=== PATIENT | female | born 1955 | race Caucasian/White ===

== ENCOUNTER 2019-11-28 19:00 | Observation (INO) | payer MEDICARE, OTHER, SELFPAY ==
[2019-11-28] VITALS (7 sets, daily range): BP systolic 96–149; BP diastolic 60–104; PULSE 90–103; RESP 16–18; TEMP 36.8; O2SAT 94–96; BMI 47.0
--- NOTE | 2019-11-28 19:10 | ED_ITS ---
Entered by Kaitlin Damon, acting as scribe for Arabella Lang HPI - Fall General: Chief Complaint: Fall Stated Complaint: Fall Time Seen by Provider: 11/28/19 19:03 Source: patient and family Mode of arrival: ambulatory History of Present Illness: HPI Narrative: 64 y/o female presents to the ED with complaint of pain, post fall. Pt states she has chronic weakness that has been going on for the past 2 years. She is used to the weakness and but she thinks she has had some increased shakiness today. She said she was walking when her legs gave out. She had a recent hip replacement and has some discomfort since the fall. Family states she does not eat very much and they think that contributed to her fall. Pt reports increased thirst, recently. Upon exam, she has some trembling in her hands that she says is a bit worse than usual. She is mostly concerned about her hip pain. MD complaint: fall Onset (ago): hour(s) Fall from: standing Fall witnessed: yes, by family Place fall occurred: home Loss of consciousness: None Location of injury: other (hip) Severity: mild Associated symptoms-after fall: Denies abdominal pain, chest pain or hematuria Review of Systems General: Reports: other (negative unless marked) Const: Denies: fever, chills, body aches, fatigue, malaise or diaphoresis Eyes: Denies: change in vision or blurry vision ENMT: Denies: throat pain, painful swallowing, hoarseness, ear pain, ear discharge, Change in hearing or nasal discharge Card: Denies: chest pain, palpitations, irregular heart rhythm, syncope, pre- syncope, shortness of breath on exertion or shortness of breath when lying down Resp: Denies: shortness of breath, productive cough, non-productive cough, wheezing, coughing up blood or chest congestion GI: Denies: abdominal pain, nausea, vomiting, vomiting blood, coffee grounds in vomit, diarrhea, constipation, cramping, blood in stool or black tarry stool : Denies: flank pain, painful urination, urinary frequency, urinary urgency, decreased urine ouput, urinary incontinence or blood in urine Skin/Breast: Denies: rash, skin tenderness or yellow skin Endo: Denies: excessive thirst, tired all the time, cold intolerance, excessive sweating, flushing or hot flashes Jesus Manuel/Lymph: Denies: easy bruising, easy bleeding, petechiae or enlarged lymph nodes All/Imm: Denies: hives, throat swelling, tongue swelling, facial swelling or acute wheezing PFSH ED PFSH: Medical History COPD (chronic obstructive pulmonary disease) Depression Fibromyalgia GERD (gastroesophageal reflux disease) History of renal dialysis Transient in 2017 after development of shock from post op infection right hip. Hypertension Hypothyroidism Osteoarthritis Overactive bladder Surgical History History of back surgery History of bilateral knee replacement History of History of hysterectomy History of right hip replacement History of tonsillectomy Hx of cervical spine surgery Family History Other Hypertension Social History Smoking and tobacco status: former smoker Alcohol intake: current Alcohol intake frequency: holidays/special occasions only Substance/Drug Use: never Household members: spouse Marital status: Physical Exam Const: COMMON NORMALS: no apparent distress, oriented x3, no limitations, healthy appearing and well nourished EXAM LIMITATIONS: no altered mental status GENERAL APPEARANCE: cooperative, well kempt and well developed ORIENTATION/CONSCIOUSNESS: Yes awake HENMT: COMMON NORMALS: normocephalic, head/scalp atraumatic, hearing grossly normal bilaterally, external ears normal, EAC's normal, external nose normal and moist oral mucous membranes HEAD & SCALP: normal to inspection, normocephalic and atraumatic FACE & SINUS: normal facial exam and face symmetric NOSE: external nose normal and nares normal EXTERNAL EAR: Yes external ears normal EXTERNAL AUDITORY CANAL: EAC's normal Eye: COMMON NORMALS: PERRL, EOMs intact bilaterally, conjunctivae normal and no scleral icterus GENERAL EYE: normal appearance of both eyes and normal light reflex CONJUNCTIVA: Yes conjunctivae normal SCLERA: sclerae normal CORNEA: Yes corneas normal PUPIL: Yes PERRL DIRECT OPHTHALMOSCOPY: Yes normal light reflex Neck/C-Spine: COMMON NORMALS: full ROM, no lymphadenopathy, supple, no meningeal signs and no JVD GENERAL: Yes normal visual inspection and Yes trachea midline CERVICAL SPINE: Yes cervical ROM normal Chest: COMMONS NORMALS: inspection of chest normal and palpation of chest normal Resp: COMMON NORMALS: normal respiratory effort, no retractions, no use of accessory muscles and clear to auscultation bilaterally EFFORT & INSPECTION: Yes able to speak in complete sentences AUSCULTATION: clear to auscultation bilaterally Cardio: COMMON NORMALS: no JVD, regular rate, regular rhythm, S1 normal heart sound, S2 normal heart sound, no gallops, no clicks, no murmurs and no rub JUGULAR VENOUS DISTENTION: no JVD RATE: regular rate RHYTHM: regular rhythm HEART SOUNDS: S1 normal and S2 normal GI: COMMON NORMALS: soft to palpation, non-tender, no hepatosplenomegaly and no masses INSPECTION: Yes normal to inspection PALPATION: Yes soft and Yes no hepatosplenomegaly : COMMON NORMALS: Yes no CVA tenderness BLADDER/KIDNEY EXAM: Yes no CVA tenderness Back/Pelvis: COMMON NORMALS: no CVA tenderness, thoracic and lumbar spine normal to inspection, no thoracic nor lumbar tenderness and thoraco-lumbar ROM normal Neuro: COMMON NORMALS: oriented x3, CN's II-XII intact bilaterally, moves all extremities, no focal motor deficits and no sensory deficits noted MENINGEAL SIGNS: Yes no meningeal signs Psych: COMMON NORMALS: mental status grossly normal, thought process normal, cooperative, affect normal, speech normal and activity/motor behavior normal APPEARANCE: Yes well kempt SPEECH: Yes normal speech THOUGHT PROCESS: normal thought process Skin: COMMON NORMALS: no rashes or lesions noted, skin turgor normal, no jaundice, no petechiae and no mottling GENERAL SKIN EXAM: no rashes or lesions noted and turgor normal Course Vital Signs: Vital signs: Vital Signs Temperature 98.1 F 11/29/19 00:47 Pulse Rate 97 11/29/19 00:47 Respiratory Rate 19 H 11/29/19 00:47 Blood Pressure 169/81 11/29/19 00:47 Pulse Oximetry 94 11/29/19 00:47 MDM - Fall MDM Narrative: Medical decision making narrative: Elysia is a nice 64-year-old female who comes in with increased tremulousness and shakiness causing her to fall. I see no evidence of fractures on her x-ray. She does have an elevated right diaphragm on her chest x-ray. She also has hyponatremia which could be contributing to her tremulousness and generalized weakness and malaise. Hydrochlorothiazide as a cause but she has other medicines as well. Secondary to the patient's overall generally poor health status and weakness I believe she is at risk to fall again of going home. Consulted Dr. Cramer for admission to determine if she thinks she would benefit from an overnight stay with normal saline infusion and review of her medications and further work-up of her hyponatremia. Lab Data: Attestation: I reviewed the patient's lab results. Labs: Lab Results 11/28/19 11/28/19 11/28/19 Range/Units 19:30 19:30 19:30 WBC 7.6 (4.0-10.0) 10^3/ uL RBC 4.19 (4.1-5.3) 10^6/u L Hgb 10.7 L (11.5-15.3) g/dL Hct 34.7 L (37.0-47.0) % MCV 82.8 (81-99) fL MCH 25.5 L (28.0-34.0) pg MCHC 30.8 (30.0-36.0) g/dL RDW 14.7 (12.1-15.1) % Plt Count 324 (130-400) 10^3/c mm MPV 9.1 (7.4-10.4) fL Neut % (Auto) 81.0 % Lymph % (Auto) 11.2 % Bradley % (Auto) 6.6 % Eos % (Auto) 0.4 % Baso % (Auto) 0.5 % Neut # (Auto) 6.1 (1.8-7.7) 10^3/u L Lymph # (Auto) 0.9 (0.8-4.8) 10^3/u L Bradley # (Auto) 0.5 (0.2-0.9) 10^3/u L Eos # (Auto) 0.0 (0.0-0.8) 10^3/u L Baso # (Auto) 0.0 (0.0-0.1) 10^3/u L Nucleated RBC % (a uto) 0 % Nucleated RBCs # 0.0 /100WBC Sodium 125 L (136-145) mmol/L Potassium 3.8 (3.5-5.1) mmol/L Chloride 86 L (98-107) mmol/L Carbon Dioxide 28 (22-29) mmol/L Anion Gap 14.8 (5-19) BUN 11 (8-23) mg/dL Creatinine 1.0 H (0.5-0.9) mg/dL GFR Calculation 55.5 L (90-130) mL/min Glucose 146 H (65-115) mg/dL Calcium 9.4 (8.5-10.5) mg/dL Total Bilirubin 0.3 (0.15-1.2) mg/dL AST 11 (0-32) U/L ALT 10 (0-33) U/L Alkaline Phosphata se 83 (35-105) IU/L Troponin T Baselin e 44 H (0-10) ng/mL Troponin T 120 Min didier (0-10) ng/mL Delta Troponin T (0-10) ABS# Total Protein 7.5 (6.6-8.7) g/dL Albumin 3.9 (3.5-5.2) g/dL Globulin 3.6 (1.3-4.6) g/dL Urine Color (Yellow) Urine Appearance (CLEAR) Urine pH (5-7) Ur Specific Gravit y (1.005-1.030) Urine Protein (Negative) Urine Glucose (UA) (Normal) Urine Ketones (Negative) Urine Blood (Negative) Urine Nitrate (Negative) Urine Bilirubin (NEGATIVE) Urine Urobilinogen (Negative) mg/dL Ur Leukocyte Aurelia ase (Negative) Urine RBC (0-2) /hpf Urine WBC (0-5) /hpf Ur Squamous Epith Cells (0-5) Urine Bacteria (NONE) Influenza Type A A g (Negative) POC Influenza B Ag (Negative) 11/28/19 11/28/19 11/28/19 Range/Units 20:22 20:34 21:00 WBC (4.0-10.0) 10^3/ uL RBC (4.1-5.3) 10^6/u L Hgb (11.5-15.3) g/dL Hct (37.0-47.0) % MCV (81-99) fL MCH (28.0-34.0) pg MCHC (30.0-36.0) g/dL RDW (12.1-15.1) % Plt Count (130-400) 10^3/c mm MPV (7.4-10.4) fL Neut % (Auto) % Lymph % (Auto) % Bradley % (Auto) % Eos % (Auto) % Baso % (Auto) % Neut # (Auto) (1.8-7.7) 10^3/u L Lymph # (Auto) (0.8-4.8) 10^3/u L Bradley # (Auto) (0.2-0.9) 10^3/u L Eos # (Auto) (0.0-0.8) 10^3/u L Baso # (Auto) (0.0-0.1) 10^3/u L Nucleated RBC % (a uto) % Nucleated RBCs # /100WBC Sodium (136-145) mmol/L Potassium (3.5-5.1) mmol/L Chloride (98-107) mmol/L Carbon Dioxide (22-29) mmol/L Anion Gap (5-19) BUN (8-23) mg/dL Creatinine (0.5-0.9) mg/dL GFR Calculation (90-130) mL/min Glucose (65-115) mg/dL Calcium (8.5-10.5) mg/dL Total Bilirubin (0.15-1.2) mg/dL AST (0-32) U/L ALT (0-33) U/L Alkaline Phosphata se (35-105) IU/L Troponin T Baselin e (0-10) ng/mL Troponin T 120 Min didier 40.90 H (0-10) ng/mL Delta Troponin T -3.10 L (0-10) ABS# Total Protein (6.6-8.7) g/dL Albumin (3.5-5.2) g/dL Globulin (1.3-4.6) g/dL Urine Color Yellow (Yellow) Urine Appearance Sl hazy (CLEAR) Urine pH 7 (5-7) Ur Specific Gravit y 1.005 (1.005-1.030) Urine Protein Neg (Negative) Urine Glucose (UA) Norm (Normal) Urine Ketones Negative (Negative) Urine Blood Neg (Negative) Urine Nitrate Negative (Negative) Urine Bilirubin Neg (NEGATIVE) Urine Urobilinogen Norm (Negative) mg/dL Ur Leukocyte Aurelia ase Negative (Negative) Urine RBC None (0-2) /hpf Urine WBC 0-4 H (0-5) /hpf Ur Squamous Epith Cells 0-4 H (0-5) Urine Bacteria Trace (NONE) Influenza Type A A g Negative (Negative) POC Influenza B Ag Negative (Negative) Imaging Data^: CXR: My impression: Elevated right hemidiaphragm, nonspecific findings otherwise. EKG Data^: EKG 1: EKG interpretation date: 11/28/19 EKG interpretation time: 19:35 Interpretation: Normal sinus rhythm at 92 beats a minute, possible lateral Q waves in 1 and aVL, normal intervals, no blocks. No acute ST or T wave changes. Discharge Plan Discharge Patient Disposition: Placed in Observation Admit Provider: Cristy Perez Clinical Impression: Acute hyponatremia Condition: Stable Referrals: Yimi Wagner [Family Provider] - Discharge Date/Time: 11/29/19 00:38 Coding Level of Care Code ED Operation Manager for Chg Fwd Exam Comprehensive The documentation recorded by the Nelson braun Ashley, accurately reflects the service I personally performed and the decisions made by Precious busby Eli N Nov 28, 2019 19:00
--- NOTE | 2019-11-28 19:14 | XRR_ITS ---
PROCEDURE INFORMATION: Exam: XR Right Hip with Pelvis when Performed Exam date and time: 11/28/2019 7:53 PM Age: 64 years old Clinical indication: Injury or trauma; Fall; Initial encounter; Blunt trauma (contusions or hematomas); Right; Injury date: Today; Prior surgery; Surgery type: Total hip; Additional info: Fall/injury TECHNIQUE: Imaging protocol: XR Right hip with pelvis when performed. Views: 1 view. COMPARISON: No relevant prior studies available. FINDINGS: Bones/joints: Prior right hip arthroplasty. No acute fracture or dislocation. No evidence of loosening. Degenerative changes are present within the visualized portions of the caudal aspect of the lumbar spine. Degenerative changes left hip Soft tissues: Unremarkable. XR/XR hip RT 2-3V wo/w pel* [id number] IMPRESSION: Prior right hip arthroplasty. No acute fracture or dislocation. No evidence of loosening.
--- NOTE | 2019-11-28 19:14 | XRR_ITS ---
PROCEDURE INFORMATION: Exam: XR Chest, 1 View Exam date and time: 11/28/2019 7:53 PM Age: 64 years old Clinical indication: Cough; Prior surgery; Surgery type: T spine TECHNIQUE: Imaging protocol: XR of the chest Views: 1 view. COMPARISON: CR Chest 2 views* [id number] 09/01/2017 9:13 AM FINDINGS: Lungs: Lungs are well aerated without a focal area of consolidation. Pleural space: Unremarkable. No pleural effusion. No pneumothorax. Heart/Mediastinum: Unremarkable. No cardiomegaly. Bones/joints: Prior surgical fixation of the caudal aspect of the cervical spine. Haney rods and pedicle plates stabilizing the thoracic spine. XR/XR chest 1V portable [id number] IMPRESSION: Lungs are well aerated without a focal area of consolidation. No focal infiltrate.Poor degree of inspiration accentuates the basilar markings.
--- NOTE | 2019-11-28 19:16 | ECG_ITS ---
Measurements Intervals [place] Rate: 92 P: 56 IL: 170 QRS: 9 QRSD: 109 T: 85 QT: 343 QTc: 424 SINUS RHYTHM WITH SINUS ARRHYTHMIA PROBABLE LATERAL MYOCARDIAL INFARCTION , OF INDETERMINATE AGE [35 ms Q WAVE IN I/ I/aVL/V5/V6] No previous ECG available for comparison Electronically Signed On 11-28-2019 21:19:19 NET APPLICATIONS DEVELOPER by Gay Manley M.D. [id number]
--- NOTE | 2019-11-28 19:16 | PC.NURSE ---
Patient states she started to walk to the bathroom with her walker and she fell. Patient states that she has shakiness that makes her fall. Patient states that she had a replacement on her right hip summer 2016 and that she landed on it tonight but she does not feel any pain in it right now.
[2019-11-28 19:38] LABS: Basophils % 0.5 %; Eosinophils % 0.4 %; Hematocrit 34.7 % (37.0-47.0); Hemoglobin 10.7 g/dL (11.5-15.3); Lymphocytes # 0.9 10^3/uL (0.8-4.8); Lymphocytes % 11.2 %; Mean Corpuscular HGB Conc 30.8 g/dL (30.0-36.0); Mean Corpuscular Hemoglobin 25.5 pg (28.0-34.0); Mean Corpuscular Volume 82.8 fL (81-99); Mean Platelet Volume 9.1 fL (7.4-10.4); Monocytes # 0.5 10^3/uL (0.2-0.9); Monocytes % 6.6 %; Neutrophils # 6.1 10^3/uL (1.8-7.7); Nucleated Red Blood Cells % 0 %; Platelet Count 324 10^3/cmm (130-400); Red Blood Count 4.19 10^6/uL (4.1-5.3); Red Cell Distribution Width 14.7 % (12.1-15.1); White Blood Count 7.6 10^3/uL (4.0-10.0)
[2019-11-28 19:53] LABS: Alanine Aminotransferase 10 U/L (0-33); Albumin Level 3.9 g/dL (3.5-5.2); Alkaline Phosphatase 83 IU/L (35-105); Anion Gap 14.8 (5-19); Aspartate Amino Transferase 11 U/L (0-32); Blood Urea Nitrogen 11 mg/dL (8-23); Calcium 9.4 mg/dL (8.5-10.5); Carbon Dioxide 28 mmol/L (22-29); Chloride 86 mmol/L (98-107); Creatinine Clr Calc Pharmacy 79.8404; Globulin 3.6 g/dL (1.3-4.6); Glomerular Filtration Rate 55.5 mL/min (90-130); Glucose 146 mg/dL (65-115); Potassium 3.8 mmol/L (3.5-5.1); Sodium 125 mmol/L (136-145); Total Bilirubin 0.3 mg/dL (0.15-1.2); Total Protein 7.5 g/dL (6.6-8.7)
[2019-11-28 19:56] LABS: Troponin(5th) Baseline 44 ng/mL (0-10)
[2019-11-28] MEDS: sodium chloride 0.9% 1,000 ML 100 ML IV (20:39)
--- NOTE | 2019-11-28 20:44 | PC.PHAR ---
I SPOKE WITH THE PATIENT THIS EVENING. SHE NAMED A FEW OF THE MEDICATIONS THAT SHE COULD REMEMBER TAKING, HOWEVER, SHE DIDN'T KNOW THE MGS OF ANY OF THE MEDICATIONS. I GAVE A LIST THAT SHE GAVE ME TO DR. GRIJALVA PER HIS INSTRUCTIONS.
[2019-11-28 21:01] LABS: Influenza A by IFA Negative (Negative)
[2019-11-28 21:02] LABS: Influenza B by IFA Negative (Negative)
[2019-11-28 21:04] LABS: Add Urine Culture? No; Bacteria Urine TRACE; Bilirubin Urine Neg (NEGATIVE); Blood Urine Neg (Negative); Glucose Urine UA Norm (Normal); Ketones Urine Negative (Negative); Leukocyte Esterase Urine Negative (Negative); Nitrate Urine Negative (Negative); Protein Urine Neg (Negative); Specific Gravity, Urine 1.005 (1.005-1.030); Squamous Epithelial Cell Urine 0-4 (0-5); Urine Appearance SL Hazy (CLEAR); Urine Color Yellow (Yellow); Urobilinogen Urine Norm (Negative); WBC Urine 0-4 /hpf (0-5); pH Urine 7 (5-7)
--- NOTE | 2019-11-28 21:16 | ECG_ITS ---
Measurements Intervals [place] Rate: 92 P: 56 HI: 165 QRS: 2 QRSD: 112 T: 82 QT: 344 QTc: 427 SINUS RHYTHM WITH SINUS ARRHYTHMIA MODERATE INTRAVENTRICULAR CONDUCTION DELAY [110+ ms QRS DURATION] NONSPECIFIC T-WAVE ABNORMALITY Compared to ECG 11/28/2019 19:35:43 Intraventricular conduction delay now present T-wave abnormality now present Myocardial infarct finding no longer present Electronically Signed On 11-28-2019 21:22:55 SAP TECHNICAL DEVELOPER by Gay Manley M.D. [id number]
--- NOTE | 2019-11-28 21:35 | PC.NURSE ---
EKG done at 2124 and shown to ER doctor
--- NOTE | 2019-11-28 22:21 | PC.NURSE ---
patient readjusted in bed with help of tech. patient IV checked for patency.
--- NOTE | 2019-11-28 22:46 | P.HP_ITS ---
Providers/Chief Complaint Admitting Physician: Cristy Perez MD Primary Care Provider: Yimi Wagner Chief Complaint: Fall History of Present Illness Scarlet Tong is a 64 year old female who presented to the emergency room with a chief complaint of a fall. She says she got up to go to the bathroom and her legs just gave out. She was having increasing tremors of her arms and legs making it difficult to move around. She is felt more tired and just generally weak. She has had issues ever since she had hip replacement and subsequent significant infection stemming after that that led to prolonged hospitalization and even temporary dialysis. Because of those experiences it more, patient does not like to go to the doctor. She does not really want to be here now but her family insisted because today was much worse than usual. In the emergency room she was found to have low sodium at 125. She reports drinking water all the time and being thirsty. She had some pain in her hip on the right side where she fell but x-ray in the emergency room did not show any fracture. No preceding symptoms such as chest pain or dizziness or difficulty breathing. No focal weakness. Patient continued to have increased tremors and general weakness and is being admitted overnight for some fluids and further evaluation as indicated. Review of Systems Const: Denies: fever or chills Eyes: Denies: change in vision ENMT: Denies: throat pain or nasal congestion Card: Denies: chest pain, palpitations or edema Resp: Reports: shortness of breath; Denies: productive cough GI: Denies: abdominal pain, nausea, vomiting, difficulty swallowing, diarrhea, constipation or blood in stool : Denies: difficulty urinating or urinary frequency Musc: Reports: back pain, extremity pain and muscle weakness; Denies: joint swelling, redness, joint warmth or muscle cramps Skin/Breast: Reports: dry skin; Denies: rash or sores Neuro: Reports: weakness in extremities; Denies: headache or numbness in extremities Psych: Reports: depression; Denies: anxiety Jesus Manuel/Lymph: Denies: easy bruising or easy bleeding Medications/Allergies Home Medications Medication Instructions Recorded Confirmed Last Taken Type Lyrica 11/28/19 11/28/19 History Miralax 11/28/19 Unknown History Trelegy Ellipta 11/28/19 Unknown History Tylenol PM Extra Strength 1 tab PO BEDTIME 11/28/19 11/28/19 11/27/19 History Wellbutrin SR 11/28/19 11/28/19 History amitriptyline 11/28/19 Unknown History hydrochlorothiazide 11/28/19 11/28/19 History levothyroxine 11/28/19 11/28/19 History omeprazole 11/28/19 11/28/19 History solifenacin 10 mg PO DAILY 11/28/19 11/28/19 11/28/19 History Allergies Allergy/AdvReac Type Severity Reaction Status Date / Time Unable to Assess Allergy Unverified 11/28/19 19:06 PFSH Acute PFSH: Medical History COPD (chronic obstructive pulmonary disease) Depression Fibromyalgia GERD (gastroesophageal reflux disease) History of renal dialysis Transient in 2017 after development of shock from post op infection right hip. Hypertension Hypothyroidism Osteoarthritis Overactive bladder Surgical History History of back surgery History of bilateral knee replacement History of History of hysterectomy History of right hip replacement History of tonsillectomy Hx of cervical spine surgery Family History Other Hypertension Social History Smoking and tobacco status: former smoker Alcohol intake: current Alcohol intake frequency: holidays/special occasions only Substance/Drug Use: never Household members: spouse Marital status: Female Reproductive History: : 2 Para: 2 Vitals/I&O/Wt Last Vital Signs Temp 98.2 F 11/28/19 19:02 Pulse 97 11/28/19 22:07 Resp 16 11/28/19 22:07 BP 144/76 11/28/19 22:07 Pulse Ox 95 11/28/19 22:07 Weight last 48 hrs Weight 136.078 kg Physical Exam Const: COMMON NORMALS: oriented x3 and alert HENMT: COMMON NORMALS: normocephalic and head/scalp atraumatic Eye: COMMON NORMALS: PERRL and EOMs intact bilaterally Neck/C-Spine: COMMON NORMALS: supple Resp: COMMON NORMALS: normal respiratory effort, no use of accessory muscles and clear to auscultation bilaterally Cardio: COMMON NORMALS: regular rate, regular rhythm, no gallops, no murmurs and no rub JUGULAR VENOUS DISTENTION: no JVD GI: COMMON NORMALS: soft to palpation and non-tender AUSCULTATION: Yes normoactive bowel sounds Extremity: COMMON NORMALS: normal capillary refill, no clubbing, cyanosis or edema and no calf tenderness Neuro: COMMON NORMALS: moves all extremities and no sensory deficits noted Psych: COMMON NORMALS: cooperative Skin: NARRATIVE SKIN EXAM: very dry, even flaky skin both legs in particular, decreased turgor no visible bruise presently to hip Data : 11/28/19 19:30 11/29/19 05:16 A&P Assessment and plan (1) Fall at home: Due to generalized weakness leading to her legs giving out as well as increased tremors Status: Acute Qualifiers: Encounter type: initial encounter Qualified Code(s): W19.XXXA - Unspecified fall, initial encounter; Y92.009 - Unspecified place in unspecified non-institutional (private) residence as the place of occurrence of the external cause Code(s): W19.XXXA - Unspecified fall, initial encounter; Y92.009 - Unspecified place in unspecified non-institutional (private) residence as the place of occurrence of the external cause (2) General weakness: Chronic but acutely worse Status: Acute Code(s): R53.1 - Weakness (3) Occasional tremors: More significant today Status: Acute Code(s): R25.1 - Tremor, unspecified (4) Acute hyponatremia: Suspect related to hydrochlorothiazide Status: Acute Code(s): E87.1 - Hypo-osmolality and hyponatremia (5) Hyperglycemia: Without a known history of diabetes Status: Acute Code(s): R73.9 - Hyperglycemia, unspecified (6) Hypertension: Status: Acute Qualifiers: Hypertension type: essential hypertension Qualified Code(s): I10 - Essential (primary) hypertension Code(s): I10 - Essential (primary) hypertension (7) Hypothyroidism: Status: Acute Qualifiers: Hypothyroidism type: acquired Qualified Code(s): E03.9 - Hypothyroidism, unspecified Code(s): E03.9 - Hypothyroidism, unspecified (8) COPD (chronic obstructive pulmonary disease): Status: Acute Qualifiers: COPD type: chronic bronchitis Chronic bronchitis type: simple Qualified Code(s): J41.0 - Simple chronic bronchitis Code(s): J44.9 - Chronic obstructive pulmonary disease, unspecified (9) Depression: Status: Acute Qualifiers: Depression Type: unspecified Qualified Code(s): F32.9 - Major depressive disorder, single episode, unspecified Code(s): F32.9 - Major depressive disorder, single episode, unspecified (10) Overactive bladder: Status: Acute Code(s): N32.81 - Overactive bladder (11) GERD (gastroesophageal reflux disease): Status: Acute Qualifiers: Esophagitis presence: without esophagitis Qualified Code(s): K21.9 - Gastro-esophageal reflux disease without esophagitis Code(s): K21.9 - Gastro-esophageal reflux disease without esophagitis (12) Fibromyalgia: Status: Acute Code(s): M79.7 - Fibromyalgia (13) Osteoarthritis: Status: Acute Qualifiers: Osteoarthritis location: multiple joints Osteoarthritis type: primary Qualified Code(s): M15.0 - Primary generalized (osteo)arthritis Code(s): M19.90 - Unspecified osteoarthritis, unspecified site Additional A&P Information Observation admission Hold HCTZ Monitor blood pressures and determine need for alternative agent Some IV fluids tonight Recheck sodium in the morning Check TSH Check hemoglobin A1c Continue serial cardiac enzymes Physical therapy evaluation Lovenox for DVT prophylaxis Patient was not able to provide any specifics in terms of home medications. Will need to clarify these as able. We did get the majority of the names though a couple are unclear at this point. Anticipate discharge home tomorrow with follow-up to primary care provider. May benefit from neurology evaluation for the tremors if they persist after c orrection of electrolytes Supportive care otherwise Plans were discussed with patient and questions were answered Full code Attestations Medical Necessity Statement*: Scarlet Tong's hospital stay will be less than 2 midnights for general weakness and tremors leading to a fall today. Found to have hyponatremia and hyperglycemia. Plans as noted. Coding Level of Care Code Acute Metal Furniture Assembler for Chg Fwd Diagnoses Fall at home W19.XXXA; Y92.009 Encounter type: initial encounter General weakness R53.1 Occasional tremors R25.1 Acute hyponatremia E87.1 Hyperglycemia R73.9 Hypertension I10 Hypertension type: essential hypertension Hypothyroidism E03.9 Hypothyroidism type: acquired COPD (chronic obstructive pulmonary disease) J41.0 COPD type: chronic bronchitis Chronic bronchitis type: simple Depression F32.9 Depression Type: unspecified Overactive bladder N32.81 GERD (gastroesophageal reflux disease) K21.9 Esophagitis presence: without esophagitis Fibromyalgia M79.7 Osteoarthritis M15.0 Osteoarthritis location: multiple joints Osteoarthritis type: primary
[2019-11-29] VITALS (7 sets, daily range): BP systolic 130–169; BP diastolic 62–86; PULSE 83–102; RESP 16–22; TEMP 36.6–36.8; O2SAT 91–96
[2019-11-29] MEDS: enoxaparin 40 mg/0.4 mL Syringe SUBCUT ×2 (01:12→23:48)
--- NOTE | 2019-11-29 01:16 | ECG_ITS ---
Measurements Intervals [place] Rate: 89 P: 46 SC: 184 QRS: 24 QRSD: 109 T: 76 QT: 358 QTc: 436 SINUS RHYTHM NONSPECIFIC T-WAVE ABNORMALITY Compared to ECG 11/28/2019 21:26:00 Sinus arrhythmia no longer present Intraventricular conduction delay no longer present T-wave abnormality still present Electronically Signed On 11-29-2019 11:15:18 PUNCHBOARD FILLING MACHINE OPERATOR by Gay Manley M.D. [email or web address]
[2019-11-29 01:37] LABS: Troponin 5 6HR 40.75 ng/mL (0-10)
[2019-11-29 01:44] LABS: Troponin 5 6HR Delta -3.25 ng/L (0-12)
[2019-11-29 05:54] LABS: INR 1.12 (0.8-1.2)
[2019-11-29 05:59] LABS: Anion Gap 13.1 (5-19); Blood Urea Nitrogen 9 mg/dL (8-23); Calcium 9.3 mg/dL (8.5-10.5); Carbon Dioxide 29 mmol/L (22-29); Chloride 89 mmol/L (98-107); Creatinine Clr Calc Pharmacy 99.8005; Glomerular Filtration Rate 71.8 mL/min (90-130); Glucose 115 mg/dL (65-115); Osmolality Calculated 261 mOsm/kg (285-295); Phosphorus 3.5 mg/dL (2.5-4.5); Potassium 4.1 mmol/L (3.5-5.1); Sodium 127 mmol/L (136-145)
[2019-11-29 06:08] LABS: Estmated Average Glucose 100; Hemoglobin A1C 5.1 % (4.0-6.0)
[2019-11-29 06:10] LABS: Thyroid Stimulating Hormone 0.37 uIU/mL (0.27-4.20)
[2019-11-29] MEDS: sodium chloride 0.9% 1,000 ML 100 ML IV ×3 (06:37→23:49)
[2019-11-29] MEDS: pantoprazole DR 40 mg Tablet PO (12:09)
[2019-11-29] MEDS: levothyroxine 100 mcg Tablet PO (12:10)
[2019-11-29] MEDS: pregabalin 50 mg Capsule PO ×2 (12:16→18:29)
--- NOTE | 2019-11-29 12:16 | PC.CHAP ---
Pastoral Care Encounter/Spiritual Assessment Type of Contact [] Declined personnel security assistant visit [] Patient/Family/Request visit [] Outpatient visit [] Follow-up visit [] Physician referral [] Code/Alert [x] Routine visit [] Staff referral [] Actively dying [] Patient sleeping [] Family support [] [] Out of room [] Palliative care [] [] Receiving care in room [] Pre-surgical visit [] Trauma [] Long length of stay [] ICU visit [] Other: Relational/Emotional Strength [x] Patient feels connected with others/family/visitors/staff [] Distress [] Loneliness/isolation [] Abandonment Spirituality of Patient [x] Person of Cony [x] Attends Congregational of their [place] [] Believes in Prayer [] Reads Bible or Buddhist materials [] There are Spiritual issues to be addressed Computer Operations Specialist Interventions [x] Prayer [x] Active listening [x] Non-anxious presence [x] Spiritual/emotional support [] Crisis/trauma care [] Spiritual counseling [] Bereavement support [] Provided bereavement packet [] Provided Bible/devotional materials [] Provided toy/stuffed animal, coloring book to patient or family member [] Provided Communion [] Anointing/Hume [] Salvation [x] Completed spiritual assessment [] Other: Impact on Illness or Injury [] Angry [] Fearful [] Anxious [] Often cries [] Exhaustion [] Unable to work [] Unable to attend yazdanism [] Unable to walk/stand [] Unable to read [] Unable to drive [] Unable to eat/drink [] Unable to sleep [] Unable to be with family [] Patient intubated [] Other: Summary patient ready to go home Time spent with patient 10 min
--- NOTE | 2019-11-29 12:53 | P.PN_ITS ---
Subjective Subjective: Interval history: Chart reviewed, imaging unremarkable, had 1200 mL urine output overnight, Na up to 127. Patient seen and examined, in good spirits, having cookies that family brought in. Worked well with PT, has been able to ambulate to the bathroom with minimal assistance and get back in bed on her own. No complaints currently, weakness has almost completely resolved, minimal tremors. Medications: Reviewed: Yes Medication Review Details: Active Medications Generic Name Dose Route Start Last Admin Trade Name Freq PRN Reason Stop Dose Admin Acetaminophen 650 mg 11/29/19 00:47 Tylenol PO Q6H PRN Mild/Mod Pain Or Temp >/= 101 Bisacodyl 10 mg 11/29/19 00:47 Dulcolax PO DAILY PRN CONSTIPATION Enoxaparin Sodium 40 mg 11/29/19 00:47 11/29/19 01:12 Lovenox SUBCUT 40 mg Q24H GRACIELA Administration Sodium Chloride 1,000 mls @ 100 m ls/hr 11/28/19 19:15 11/29/19 06:37 Sodium Chloride 0.9% IV 100 mls/hr .Q10H GRACIELA Administration Levothyroxine Sodi um 100 mcg 11/29/19 09:00 11/29/19 12:10 Synthroid PO 100 mcg DAILY GRACIELA Administration Ondansetron HCl 4 mg 11/29/19 00:47 Zofran PO Q8H PRN NAUSEA Pantoprazole Sodiu m 40 mg 11/29/19 09:00 11/29/19 12:09 Protonix PO 40 mg DAILY GRACIELA Administration Polyethylene Glyco l 17 gm 11/29/19 09:00 11/29/19 12:09 Miralax PO Not Given DAILY GRACIELA Unable to Assess Allergy (Unverified 11/28/19 19:06) Vitals/I&O/Wt Last Vital Signs Temp 98.2 F 11/29/19 11:00 Pulse 84 11/29/19 11:00 Resp 18 11/29/19 11:00 BP 130/62 11/29/19 11:00 Pulse Ox 95 11/29/19 11:00 11/28/19 11/29/19 11/29/19 22:59 06:59 14:59 Intake Total 1056.667 / 1056.667 720 / 720 Output Total 1200 / 1200 650 / 650 Balance -143.333 / -143.333 70 / 70 Weight last 48 hrs Weight 136.078 kg Physical Exam Const: COMMON NORMALS: no apparent distress and oriented x3 GENERAL APPEARANCE: cooperative and comfortable NUTRITIONAL APPEARANCE: obese morbidly obese ORIENTATION/CONSCIOUSNESS: Yes awake HENMT: COMMON NORMALS: normocephalic, head/scalp atraumatic, hearing grossly normal bilaterally and moist oral mucous membranes HEAD & SCALP: normocephalic and atraumatic Eye: COMMON NORMALS: PERRL, EOMs intact bilaterally and conjunctivae normal CONJUNCTIVA: Yes conjunctivae normal PUPIL: Yes PERRL Neck/C-Spine: COMMON NORMALS: full ROM GENERAL: Yes normal visual inspection and Yes trachea midline Resp: COMMON NORMALS: normal respiratory effort, no retractions, no use of accessory muscles and clear to auscultation bilaterally EFFORT & INSPECTION: Yes able to speak in complete sentences, Yes symmetric chest movement and No tachypneic AUSCULTATION: clear to auscultation bilaterally Cardio: COMMON NORMALS: regular rate, regular rhythm, S1 normal heart sound, S2 normal heart sound and no murmurs RATE: regular rate RHYTHM: regular rhythm HEART SOUNDS: S1 normal and S2 normal GI: COMMON NORMALS: normal to inspection, nondistended, normoactive bowel sounds, soft to palpation and non-tender INSPECTION: Yes central obesity PALPATION: Yes soft Extremity: COMMON NORMALS: normal to inspection, full ROM and no clubbing, cyanosis or edema; negative for no pedal edema Neuro: COMMON NORMALS: oriented x3, moves all extremities, no focal motor deficits and no sensory deficits noted Psych: COMMON NORMALS: mental status grossly normal, thought process normal, cooperative, affect normal and speech normal SPEECH: Yes normal speech THOUGHT PROCESS: normal thought process Skin: COMMON NORMALS: no rashes or lesions noted, no jaundice, no petechiae and no mottling GENERAL SKIN EXAM: no rashes or lesions noted Data : 11/28/19 19:30 11/29/19 05:16 A&P Assessment and plan (1) Acute hyponatremia: -noted hyponatremia, now improving. This is an acute issue, prior sodium levels have been normal -continue to monitor -had been on HCTZ; on hold -received some IVF overnight; good urine output Status: Acute Code(s): E87.1 - Hypo-osmolality and hyponatremia (2) Fall at home: -secondary to generalized weakness and increased tremors -could be related to hyponatremia as well -fall precautions, PT evaluation appreciated, return home recommended Status: Acute Qualifiers: Encounter type: initial encounter Qualified Code(s): W19.XXXA - Unspecified fall, initial encounter; Y92.009 - Unspecified place in unspecified non-institutional (private) residence as the place of occurrence of the external cause Code(s): W19.XXXA - Unspecified fall, initial encounter; Y92.009 - Unspecified place in unspecified non-institutional (private) residence as the place of occurrence of the external cause Additional A&P Information -HTN -Morbid obesity: BMI-47 kg/m2 -Hypothyroidism; TSH wnl -DJD, spinal stenosis, fibromyalgia, OA hx -COPD, no acute exacerbation -Depression -GERD -VSS, continue to monitor -low salt diet as tolerated -GI ppx with PPI -DVT ppx with Lovenox -Dispo: home -Code status: FULL code Attestations Medical Necessity Statement*: Patient requires hospitalization for continued monitoring and correction of acute hyponatremia. Time Spent in Patient Care: Greater than 35 minutes (>than 50% of time spent in counselling and/or direct pt care on unit) . Coding Level of Care Code Acute Labor Relations Director for Jud Fwd Exam Comprehensive Diagnoses Acute hyponatremia E87.1 Fall at home W19.XXXA; Y92.009 Encounter type: initial encounter
[2019-11-30] VITALS: BP 143/76; PULSE 94; RESP 18; TEMP 36.4; O2SAT 95
[2019-11-30 04:00] VITALS: BP 160/83; PULSE 92; RESP 19; TEMP 36.6; O2SAT 94
[2019-11-30 06:06] LABS: Basophils % 0.4 %; Eosinophils # 0.1 10^3/uL (0.0-0.8); Eosinophils % 1.5 %; Hematocrit 31.9 % (37.0-47.0); Hemoglobin 9.8 g/dL (11.5-15.3); Lymphocytes # 1.7 10^3/uL (0.8-4.8); Lymphocytes % 32.4 %; Mean Corpuscular HGB Conc 30.7 g/dL (30.0-36.0); Mean Corpuscular Hemoglobin 25.4 pg (28.0-34.0); Mean Corpuscular Volume 82.6 fL (81-99); Mean Platelet Volume 9.3 fL (7.4-10.4); Monocytes # 0.5 10^3/uL (0.2-0.9); Monocytes % 10.2 %; Neutrophils # 2.9 10^3/uL (1.8-7.7); Neutrophils % 55.3 %; Nucleated Red Blood Cells % 0 %; Platelet Count 319 10^3/cmm (130-400); Red Blood Count 3.86 10^6/uL (4.1-5.3); White Blood Count 5.3 10^3/uL (4.0-10.0)
[2019-11-30 06:35] LABS: Anion Gap 13.1 (5-19); Blood Urea Nitrogen 10 mg/dL (8-23); Calcium 9.1 mg/dL (8.5-10.5); Carbon Dioxide 27 mmol/L (22-29); Chloride 96 mmol/L (98-107); Glomerular Filtration Rate 62.6 mL/min (90-130); Glucose 97 mg/dL (65-115); Osmolality Calculated 270 mOsm/kg (285-295); Potassium 4.1 mmol/L (3.5-5.1); Sodium 132 mmol/L (136-145)
[2019-11-30 07:36] VITALS: BP 147/83; PULSE 85; RESP 18; TEMP 36.7; O2SAT 93
[2019-11-30] MEDS: levothyroxine 100 mcg Tablet PO (08:15)
[2019-11-30] MEDS: pantoprazole DR 40 mg Tablet PO (08:15)
[2019-11-30] MEDS: pregabalin 50 mg Capsule PO (08:15)
[2019-11-30 11:39] VITALS: BP 171/88; PULSE 94; RESP 20; TEMP 36.5; O2SAT 96
--- NOTE | 2019-11-30 12:31 | P.DS_ITS ---
Discharge Providers Date of Admission: 11/28/19 23:11 Date of Discharge: November 30, 2019 Attending Provider at Admission: Cristy Perez MD Attending Provider at Discharge: Gal Blandon MD Diagnoses at Discharge Discharge Diagnosis (1) Acute hyponatremia: Status: Acute (2) Fall at home: Status: Acute Qualifiers: Encounter type: initial encounter Qualified Code(s): W19.XXXA - Unspecified fall, initial encounter; Y92.009 - Unspecified place in unspecified non-institutional (private) residence as the place of occurrence of the external cause Reason for Visit Reason for Visit: Reason For Visit: Fall Hospital Course Discharge Summary: Scarlet Tong is a 64 year old female who presented to the emergency room with a chief complaint of a fall. She says she got up to go to the bathroom and her legs just gave out. She was having increasing tremors of her arms and legs making it difficult to move around. She is felt more tired and just generally weak. She has had issues ever since she had hip replacement and subsequent significant infection stemming after that that led to prolonged hospitalization and even temporary dialysis. Because of those experiences it more, patient does not like to go to the doctor. She does not really want to be here now but her family insisted because today was much worse than usual. In [facility] emergency room on febrile she was found to have low sodium at 125. She reports drinking water all the time and being thirsty. She had some pain in her hip on the right side where she fell but x-ray in the emergency room did not show any fracture. No preceding symptoms such as chest pain or dizziness or difficulty breathing. No focal weakness. Patient continued to have increased tremors and general weakness and is being admitted overnight for some fluids and further evaluation as indicated. Patient on examination of dehydrated and home medication reconciliation was done which showed patient is taking hydrochlorothiazide which was withheld. Patient was given IV fluids while monitoring for fluid overload. Patient responded well to the treatment and the sodium levels responded and improved to 132. Patient's tremor and weakness also improved. Patient's blood pressure remained well under control and her medications were reconciled. Her home medications were adjusted and hydrochlorothiazide was discontinued. Patient is been discharged hemodynamically stable condition and is symptom-free at present to follow-up with his primary care physician within next 7 to 10 days and has been asked to repeat a BMP in 3 days. Physical Exam Narrative: EXAM NARRATIVE: General: No acute distress, AO x3 HEENT: PERRLA, pupils bilaterally equal and reactive Chest: Normal vesicular breath sounds, no added sounds, equal good air entry bilaterally CVS: S1-S2 regular, no murmurs, no tachycardia, no gallops, no rubs Abdomen: Soft, nontender, no organomegaly, bowel sounds present Neuro: No focal deficits, no facial deformity, AO x3, power 5/5 in all limbs Discharge Data Data Completed and Pending: Completed Studies During Hospitalization Category Date Time Status XR chest 1V mehdi ble [id number] Stat Exams 11/28/19 19:14 Completed XR hip RT 2-3V wo /w pel* [id number] Stat Exams 11/28/19 19:14 Completed Labs from last 24 hours 11/30/19 11/30/19 05:45 05:45 WBC 5.3 RBC 3.86 L Hgb 9.8 L Hct 31.9 L MCV 82.6 MCH 25.4 L MCHC 30.7 RDW 15.0 Plt Count 319 MPV 9.3 Neut % (Auto) 55.3 Lymph % (Auto) 32.4 Ada % (Auto) 10.2 Eos % (Auto) 1.5 Baso % (Auto) 0.4 Neut # (Auto) 2.9 Lymph # (Auto) 1.7 Ada # (Auto) 0.5 Eos # (Auto) 0.1 Baso # (Auto) 0.0 Nucleated RBC % (a uto) 0 Nucleated RBCs # 0.0 Sodium 132 L Potassium 4.1 Chloride 96 L Carbon Dioxide 27 Anion Gap 13.1 BUN 10 Creatinine 0.9 GFR Calculation 62.6 L Glucose 97 Calculated Osmolal ity 270 L Calcium 9.1 Vitals: Last Vital Signs Temp 97.7 F 11/30/19 11:39 Pulse 94 11/30/19 11:39 Resp 20 H 11/30/19 11:39 BP 171/88 11/30/19 11:39 Pulse Ox 96 11/30/19 11:39 Discharge Plan Discharge Patient Disposition: Home, Self-Care Condition: Stable Prescriptions: New Levoxyl 100 mcg Tablet 100 mcg PO DAILY Qty: 30 RF: 0 losartan 50 mg tablet 50 mg PO DAILY Qty: 30 RF: 0 Continued omeprazole 20 mg Capsule,Delayed Release(Dr/Ec) 20 mg PO DAILY RF: 0 polyethylene glycol 3350 [Miralax] 17 gram/dose Powder 17 g PO DAILY RF: 0 solifenacin 10 mg tablet 10 mg PO DAILY RF: 0 pregabalin [Lyrica] 75 mg Capsule 75 mg PO TID RF: 0 Trelegy Ellipta 100-62.5-25 mcg Blister With Device 1 inh INHALATION DAILY PRN (Reason: Shortness Of Breath Or Wheezing) RF: 0 Tylenol PM Extra Strength 1 tab PO BEDTIME RF: 0 Wellbutrin SR tablet 150 mg PO BID RF: 0 amitriptyline 10 mg PO BEDTIME RF: 0 Discontinued levothyroxine 200 mcg Tablet 700 mcg PO DAILY RF: 0 losartan-hydrochlorothiazide 50-12.5 mg Tablet 1 tab PO DAILY RF: 0 Discharge Orders: Discharge Order (Routine); Ordered 11/30/19 Ordered By: Gal Blandon Referrals: Yimi Wagner [Family Provider] - 7-10 days (Please call Monday to make a follow up appoitment with Yimi Wagner to be seen in 7-10 days.) Discharge Diet: Cardiac Discharge Activity: Resume usual activity Patient Instructions: Levothyroxine (By mouth), Losartan (By mouth), Hyponatremia (DC), Hyponatremia (GEN), Hypothyroidism (GEN) Activity Restrictions/Additional Instructions: Repeat CMP in 3 days Discharge Date/Time: 11/30/19 13:19 Discharge Attestations Time Spent in Discharge Care*: greater than 30 min Specific Discharge Activities: Specific discharge activities: educating patient, documenting/other paperwork and evaluating patient/reviewing data Status at Discharge: Cognitive status at discharge: cognitively intact , Behavioral status at discharge: cooperative , Functional status at discharge: independent ambulation Overall status at discharge: patient is back to baseline Quality Metrics Clinical Quality Measures During this hospital stay, did patient experience: None Coding Level of Care Code Acute Auto Leasing Manager for Jud Mooney Diagnoses Acute hyponatremia E87.1 Fall at home W19.XXXA; Y92.009 Encounter type: initial encounter
[2019-11-30 12:59] VITALS: BP 171/88; PULSE 94; RESP 20; TEMP 36.5; O2SAT 96
== END 2019-11-30 13:19 | disposition home or self-care (01) ==
LOC: ER 23:17 → MEDSURG 11-29 00:19
PROVIDERS: Family Medicine; Admitting Provider Hospitalist; Emergency Provider Emergency Medicine; Family Provider Physician Assistant Medical; Visit Provider Student in an Organized Health Care Education/Training Program
DX: R53.1 Weakness (principal); Z91.81 History of falling; R25.1 Tremor, unspecified; E87.1 Hypo-osmolality and hyponatremia; R73.9 Hyperglycemia, unspecified; I10 Essential (primary) hypertension; E03.9 Hypothyroidism, unspecified; J41.0 Simple chronic bronchitis; F32.9 Major depressive disorder, single episode, unspecified; N32.81 Overactive bladder; K21.9 Gastro-esophageal reflux disease without esophagitis; M79.7 Fibromyalgia; M15.0 Primary generalized (osteo)arthritis
CPT/HCPCS: 12345; 36415; 71045; 73502; 80048; 80053; 81001; 83036; 83735; 84100; 84443; 84484; 85025; 85610; 87804; 93005; 96360; 96361; 96372; 97161; 97530; 99284; 99285; G0378; J1650; J7030

== ENCOUNTER → 2022-02-09 14:41 | Outpatient (BNVA) | payer MEDICARE, OTHER, SELFPAY | PROVIDERS: Family Provider Physician Assistant Medical; PCP Family Medicine; Referring Provider Family Medicine; Visit Provider Surgery | DX: L98.8 Other specified disorders of the skin and subcutaneous tissue (principal) | CPT/HCPCS: 99213 ==

== ENCOUNTER 2022-04-15 21:41 | Inpatient (IN) | payer MEDICARE, OTHER, SELFPAY ==
[2022-04-15 21:43] VITALS: BP 132/70; PULSE 76; RESP 18; TEMP 36.6; O2SAT 97; BMI 41.3
--- NOTE | 2022-04-15 21:48 | ED_ITS ---
HPI - Fall General: Chief Complaint: Fall Stated Complaint: FALL/RIGHT KNEE PAIN Time Seen by Provider: 04/15/22 21:47 History of Present Illness: Ms. Tong is a 66 yo lady with history of obesity, hypertension, hyperlipidemia, fibromyalgia, thyroid disorder who presents to the emergency department due to fall with concern over leg injury. She was at home when she went to get up and her leg got twisted behind her. She denies preceding lightheadedness or dizziness. No worsening shortness of breath or chest pain. She endorses landing primarily on her right side with her leg twisted up under her. She did hit her head softly though is not on blood thinners and denies loss of consciousness. Since time of onset she has moderate to severe intensity pain that was improved by EMS administered fentanyl. Denies numbness tingling. She otherwise reports being at her baseline health with exception of mild constipation followed by diarrhea after MiraLAX. Onset (ago): minute(s) Fall from: standing Fall witnessed: yes, by family Place fall occurred: home Loss of consciousness: None Prolonged down time: no Symptoms prior to fall: none Context: tripped/slipped Location of injury - extremities: Right: thigh and knee Severity: moderate Quality: sharp and aching Review of Systems General: Reports: 10 or more systems reviewed and unremarkable except in HPI and below PFSH ED PFSH: Medical History COPD (chronic obstructive pulmonary disease) Depression Fibromyalgia GERD (gastroesophageal reflux disease) History of renal dialysis Transient in 2017 after development of shock from post op infection right hip. Hypertension Hypothyroidism Osteoarthritis Overactive bladder Surgical History History of back surgery History of bilateral knee replacement History of History of hysterectomy History of right hip replacement History of tonsillectomy Hx of cervical spine surgery Family History Other Hypertension Social History Smoking and tobacco status: former smoker Alcohol intake: current Alcohol intake frequency: holidays/special occasions only Household members: spouse Marital status: Female Reproductive History: Para: 2 Physical Exam Const: COMMON NORMALS: alert GENERAL APPEARANCE: cooperative and well developed OTHER: No awan signs or raccoon eyes. No hemotympanum. No otorrhea or rhinorrhea. Jaw alignment normal. Dentition baseline. No obvious bony step-offs. No septal hematoma. No evidence of ocular entrapment. HENMT: COMMON NORMALS: normocephalic and atraumatic HEAD & SCALP: normocephalic and atraumatic Eye: COMMON NORMALS: conjunctivae normal CONJUNCTIVA: Yes conjunctivae normal SCLERA: sclerae normal Neck/C-Spine: COMMON NORMALS: supple GENERAL: Yes trachea midline Resp: COMMON NORMALS: normal respiratory effort and clear to auscultation bilaterally EFFORT & INSPECTION: Yes able to speak in complete sentences AUSCULTATION: clear to auscultation bilaterally Cardio: COMMON NORMALS: regular rate and regular rhythm RATE: regular rate RHYTHM: regular rhythm GI: COMMON NORMALS: Soft to palpation PALPATION: Yes Soft to palpation and No Tenderness to palpation present (GI) Extremity: NARRATIVE EXTREMITY EXAM: Right lower extremity distal CMS intact, no evidence of open wound, tenderness to palpation superior to the kneecap. GENERAL: Yes normal exam except as noted and No edema Neuro: COMMON NORMALS: moves all extremities SENSORIUM/ORIENTATION: Yes alert and No Orientation impaired Psych: COMMON NORMALS: mental status grossly normal and Normal thought process present THOUGHT PROCESS: Normal thought process present Course ED course: - Patient was seen and evaluated by me at bedside - Patient placed on cardiac monitors, IV access obtained - Initial evaluation notable for exam as above - Labs and xrays personally interpreted by me - analgesia given - Labs notable for no leukocytosis, normal hemoglobin. metabolic panel with likely dehydration which is mild. - Imaging notable for distal femur fracture which is comminuted and displaced. - discussed with orthopedics construction administrator - Upon serial reexamination after treatment the patient was improved - Based on patient history, evaluation, and testing as interpreted the most likely cause of the patient's condition is fall with femur fracture - The results of ED evaluation were discussed with the patient including plan for admission due to requirement for level of care not available if discharged to prevent significant worsening/deterioration. - Admitting service was contacted and Dr Mirza with hospitalist service agreed to admit the patient - Patient was admitted without further deterioration or significant events. Note: Click bubbles or prepopulated foreman in note writing are used for assistance with data collection and billing and are inherently more limited than narrative and other text portions of this note. Please use narrative for additional clinical history and defer to narrative/free test for any case of contradictory information. If information appears in only free text or click bubble it should be considered present or absent as reported. Please contact note field underwriter for clarifications of clinical information or contradictory information. MDM is a brief summary, contradictory or erroneous seeming information should be clarified and full note should be reviewed. Vital Signs: Vital signs: Vital Signs Temperature 98.3 F 04/20/22 15:49 Pulse Rate 87 04/20/22 15:49 Respiratory Rate 16 04/20/22 15:49 Blood Pressure 118/71 04/20/22 15:49 Pulse Oximetry 97 04/20/22 15:49 MDM - Fall Medical Decision Making 66 yo lady with hx of knee and hip replacement presenting due to fall. Found to have complex femur fracture. Admitted for further managemen. Medical Records I reviewed the patient's medical records. Lab Data I reviewed the patient's lab results. : 04/20/22 06:37 04/20/22 06:37 Radiology Impressions Hip/Pelvis X-Ray 04/15/22 22:20 IMPRESSION: Right hip arthroplasty changes seen in place. Knee X-Ray 04/15/22 22:20 IMPRESSION: 1. Distal femoral metadiaphyseal comminuted impacted fracture with overlap of the fracture fragments. 2. Knee arthroplasty changes seen. Femur CT 04/16/22 03:48 IMPRESSION: 1. Gas bubbles in the lateral aspect of an oblique linear soft tissue density in the subcutaneous fat of the upper right thigh, with a sinus tract or infected scar not differentiated. No suggestion of femoral osteomyelitis in this area. Normal alignment of the right hip joint prosthesis. 2. Comminuted fracture of the distal femoral shaft again evident as described above; extension of 2 fracture lines into the distal femur including the area of the femoral prosthesis. Femur X-Ray 04/17/22 16:00 IMPRESSION: Near anatomic alignment of the comminuted fracture site in the distal femoral metaphysis status post internal fixation. No apparent surgical complications. Laboratory Results WBC 6.8 10^3/uL (4.0-10.0) 04/15/22 23:00 RBC 4.09 10^6/uL (4.1-5.3) L 04/15/22 23:00 Hgb 11.5 g/dL (11.5-15.3) 04/15/22 23:00 Hct 37.1 % (37.0-47.0) 04/15/22 23:00 MCV 90.7 fl (81-99) 04/15/22 23:00 MCH 28.1 pg (28.0-34.0) 04/15/22 23:00 MCHC 31.0 g/dL (30.0-36.0) 04/15/22 23:00 RDW 13.9 % (12.1-15.1) 04/15/22 23:00 Plt Count 325 10^3/cmm (130-400) 04/15/22 23:00 MPV 10.9 fL (7.4-10.4) H 04/15/22 23:00 Neut % (Auto) 61.6 % 04/15/22 23:00 Lymph % (Auto) 25.4 % 04/15/22 23:00 [place] % (Auto) 10.5 % 04/15/22 23:00 Eos % (Auto) 1.5 % 04/15/22 23:00 Baso % (Auto) 0.6 % 04/15/22 23:00 Neut # (Auto) 4.16 10^3/uL (1.8-7.7) 04/15/22 23:00 Lymph # (Auto) 1.7 10^3/uL (0.8-4.8) 04/15/22 23:00 [place] # (Auto) 0.7 10^3/uL (0.2-0.9) 04/15/22 23:00 Eos # (Auto) 0.1 10^3/uL (0.0-0.8) 04/15/22 23:00 Baso # (Auto) 0.0 10^3/uL (0.0-0.1) 04/15/22 23:00 Nucleated RBC % (auto) 0 % 04/15/22 23:00 Nucleated RBCs # 0.0 /100WBC 04/15/22 23:00 ESR 51 mm/hr (0-15) H 04/15/22 23:00 Sodium 128 mmol/L (136-145) L 04/15/22 23:00 Potassium 4.4 mmol/L (3.5-5.1) 04/15/22 23:00 Chloride 89 mmol/L (98-107) L 04/15/22 23:00 Carbon Dioxide 32 mmol/L (22-29) H 04/15/22 23:00 Anion Gap 11.4 (5-19) 04/15/22 23:00 BUN 17 mg/dL (8-23) 04/15/22 23:00 Creatinine 0.7 mg/dL (0.5-0.9) 04/15/22 23:00 GFR Calculation 83.2 mL/min (90-130) L 04/15/22 23:00 Glucose 84 mg/dL (65-115) 04/15/22 23:00 Calculated Osmolality 267 mOsm/kg (285-295) L 04/15/22 23:00 Calcium 8.9 mg/dL (8.5-10.5) 04/15/22 23:00 Total Bilirubin 0.3 mg/dL (0.15-1.2) 04/15/22 23:00 AST 17 U/L (0-32) 04/15/22 23:00 ALT 12 U/L (0-33) 04/15/22 23:00 Alkaline Phosphatase 89 IU/L (35-105) 04/15/22 23:00 C-Reactive Protein 9.6 mg/L (0.0-4.9) H 04/15/22 23:00 Total Protein 6.9 g/dL (6.6-8.7) 04/15/22 23:00 Albumin 3.8 g/dL (3.5-5.2) 04/15/22 23:00 Globulin 3.1 g/dL (1.3-4.6) 04/15/22 23:00 TSH 1.16 uIU/mL (0.27-4.20) 04/15/22 23:00 Discharge Plan Discharge Patient Disposition: Admitted As Inpatient Admit Provider: Char Mirza Clinical Impression: Fall at home, Closed femur fracture Condition: Stable Discharge Activity: Wheelchair as instructed and As per PT/OT instructions Coding Level of Care Code ED Merchant Mill Utility Worker for Chg Fwd Exam Comprehensive
[2022-04-15 21:49] VITALS: BP 110/77
--- NOTE | 2022-04-15 22:20 | XRR_ITS ---
PROCEDURE INFORMATION: Exam: XR Right Knee Exam date and time: 04/15/2022 10:35 PM Age: 66 years old Clinical indication: Injury or trauma; Fall; Fracture, traumatic; Closed fracture; Right; Lower end of femur; Additional info: Fall, pain TECHNIQUE: Imaging protocol: Radiologic exam of the Right knee. Views: 3 views. COMPARISON: No relevant prior studies available. FINDINGS: Bones/joints: Distal femoral metadiaphyseal comminuted impacted fracture with overlap of the fracture fragments. Knee arthroplasty changes seen. Soft tissues: Normal. XR/XR knee RT 3V* [id number] IMPRESSION: 1. Distal femoral metadiaphyseal comminuted impacted fracture with overlap of the fracture fragments. 2. Knee arthroplasty changes seen.
--- NOTE | 2022-04-15 22:20 | XRR_ITS ---
PROCEDURE INFORMATION: Exam: XR Right Hip Exam date and time: 04/15/2022 10:23 PM Age: 66 years old Clinical indication: Injury or trauma; Fall; Blunt trauma (contusions or hematomas); Right; Hip; Additional info: Fall, pain TECHNIQUE: Imaging protocol: Radiologic exam of the Right hip. Views: 1 view hip with pelvis when performed. COMPARISON: CR XR hip RT 2-3V wo/w pel* [id number] 11/17/2021 9:15 AM FINDINGS: Bones/joints: Right hip arthroplasty changes seen in place. Soft tissues: Unremarkable. XR/XR hip RT 2-3V wo/w pel* [id number] IMPRESSION: Right hip arthroplasty changes seen in place.
--- NOTE | 2022-04-15 23:02 | XRR_ITS ---
PROCEDURE INFORMATION: Exam: XR Right Femur Exam date and time: 04/15/2022 11:18 PM Age: 66 years old Clinical indication: Injury or trauma; Fall; Fracture, traumatic; Closed fracture; Right; Lower end of femur; Additional info: Femur fracture TECHNIQUE: Imaging protocol: Radiologic exam of the Right femur. Views: 2 views. COMPARISON: CR (LOW EXM, ) 04/15/2022 10:35 PM FINDINGS: Bones/joints: Distal femoral metadiaphyseal comminuted impacted fracture with overlap of the fracture fragments. Soft tissues: Unremarkable. XR/XR femur RT min 2V* [id number] IMPRESSION: Distal femoral metadiaphyseal comminuted impacted fracture with overlap of the fracture fragments.
[2022-04-15 23:14] LABS: Basophils % 0.6 %; Eosinophils # 0.1 10^3/uL (0.0-0.8); Eosinophils % 1.5 %; Hematocrit 37.1 % (37.0-47.0); Hemoglobin 11.5 g/dL (11.5-15.3); Lymphocytes # 1.7 10^3/uL (0.8-4.8); Lymphocytes % 25.4 %; Mean Corpuscular Hemoglobin 28.1 pg (28.0-34.0); Mean Corpuscular Volume 90.7 fl (81-99); Mean Platelet Volume 10.9 fL (7.4-10.4); Monocytes # 0.7 10^3/uL (0.2-0.9); Monocytes % 10.5 %; Neutrophils # 4.16 10^3/uL (1.8-7.7); Neutrophils % 61.6 %; Nucleated Red Blood Cells % 0 %; Platelet Count 325 10^3/cmm (130-400); Red Blood Count 4.09 10^6/uL (4.1-5.3); Red Cell Distribution Width 13.9 % (12.1-15.1); White Blood Count 6.8 10^3/uL (4.0-10.0)
[2022-04-15] MEDS: fentaNYL 50 mcg/mL INJ 2mL 75 MCG IVP (23:23)
[2022-04-15 23:51] LABS: Alanine Aminotransferase 12 U/L (0-33); Albumin Level 3.8 g/dL (3.5-5.2); Alkaline Phosphatase 89 IU/L (35-105); Aspartate Amino Transferase 17 U/L (0-32); Blood Urea Nitrogen 17 mg/dL (8-23); Calcium 8.9 mg/dL (8.5-10.5); Carbon Dioxide 32 mmol/L (22-29); Chloride 89 mmol/L (98-107); Globulin 3.1 g/dL (1.3-4.6); Glomerular Filtration Rate 83.2 mL/min (90-130); Glucose 84 mg/dL (65-115); Osmolality Calculated 267 mOsm/kg (285-295); Sodium 128 mmol/L (136-145); Thyroid Stimulating Hormone 1.16 uIU/mL (0.27-4.20); Total Bilirubin 0.3 mg/dL (0.15-1.2); Total Protein 6.9 g/dL (6.6-8.7)
[2022-04-15 23:56] LABS: Anion Gap 11.4 (5-19); Potassium 4.4 mmol/L (3.5-5.1)
[2022-04-16] MEDS: fentaNYL 50 mcg/mL INJ 2mL 75 MCG IVP (00:11)
[2022-04-16 00:19] VITALS: BP 113/62; PULSE 96; RESP 16; O2SAT 96
[2022-04-16 00:32] LABS: INR 1.06 (0.8-1.2)
[2022-04-16 00:33] LABS: Partial Thromboplastin Time 29.3 SECONDS (23.9-36.7)
--- NOTE | 2022-04-16 02:37 | P.HP_ITS ---
Providers/Chief Complaint Admitting Physician: Char Mirza MD Primary Care Provider: Nirav Pelletier Chief Complaint: FALL/RIGHT KNEE PAIN History of Present Illness Scarlet Tong is a 66 year old female with a past medical history as outlined below who presented to the hospital today with a mechanical fall and resulting distal femoral metadiaphyseal impacted fracture. She denies any loss of consciousness or head trauma. At a baseline patient has limited restricted mobility and uses a scooter and a rolling walker to get about. She has noted on exam today to have a draining sinus over the upper upper lateral thigh. Patient states that she has had a draining sinus over this area on and off for about a year now. The opening of the sinus appears to be at the distal end of her previous incision site for hip replacement in 2017. Patient had right hip arthroplasty in 2017 in [place]. Postop course was complicated by infection. Per her history, it is my understanding that shortly after her hip replacement she developed an infection around her newly replaced hip joint and underwent I&D of her hip. She states that it was determined that her prosthesis was not infected. There was a bacteria identified however she does not recall the name of this organism. She was treated with a few weeks of oral antibiotics, denies ever having been on prolonged IV antibiotic treatment. She continues to have the same prosthesis at this time. This I&D surgery was complicated by hemorrhagic shock with source of bleeding around the right femur. She had additional complications of acute kidney injury requiring dialysis and and also developed a stroke as a result of circulatory shock. She slowly recovered from her last surgery by 2018. Through 2017, 2018 she did not have any infective symptoms. Through the latter part of 2019 she started developing a recurrent draining sinus along the upper part of her right hip close to her incision line from the past surgery. Per her this sinus usually heals by packing the cavity and taking oral antibiotics. Most recently it is estimated to be 6cm in depth. There are times when the sinus has completely closed in the past. Most recently the sinus has been draining purulent appearing material over the past 2 months. She does follow with her orthopedician up in [place] and states that the sinus has been cultured multiple times but has not revealed any microorganisms. She has been on ciprofloxcin empirically over the past month. She states that multiple x-rays and either CT or MRI have been performed sometime in the past 3 months and it was determined that her hip is not infected. Record of these imaging studies is not currently available to us. X-ray taken in the ER today shows prior hip arthroplasty no acute fracture or dislocation. No evidence of loosening of prosthesis. Knee x-ray shows distal femoral metadiaphyseal comminuted impacted fracture with overlap of the fracture segments. She denies any chest pain dyspnea palpitations syncope at this time. Review of Systems General: Reports: 10 or more systems reviewed and unremarkable except in HPI and below Const: Denies: fever(s), chills or body aches Eyes: Denies: change in vision, blurry vision or photophobia ENMT: Reports: hoarseness; Denies: throat pain, enlarged tonsils, odynophagia or nasal congestion Card: Denies: chest pain, palpitations, irregular heart rhythm, edema, swelling of feet/ankles, lightheadedness, pre-syncope, dyspnea on exertion or orthopnea Resp: Denies: dyspnea, productive cough, non-productive cough, wheezing, stridor, pain on inspiration, change in phlegm color, hemoptysis or chest congestion GI: Denies: abdominal pain, nausea, vomiting, hematemesis, coffee ground emesis, dysphagia, heartburn, diarrhea, constipation, GI cramping, change in stool character, hematochezia or melena : Denies: flank pain, difficulty voiding, dysuria, urinary frequency, urinary urgency, urinary hesitancy or hematuria Musc: Denies: neck pain, back pain, extremity pain, joint swelling, joint warmth or deformity Neuro: Denies: headache(s), numbness in extremities, weakness in extremities, sensory changes, difficulty walking, frequent falls, dizziness, vertigo, behavioral changes, Slurred speech present or seizure-like activity Psych: Denies: anxiety, depression, suicidal ideation or homicidal ideation Endo: Denies: polyuria, polydipsia, tired all the time, cold intolerance or hot flashes Jesus Manuel/Lymph: Denies: easy bruising or easy bleeding Medications/Allergies Home Medications Medication Instructions Recorded Confirmed Last Taken Type Tylenol PM Extra Strength 1 tab PO BEDTIME 11/28/19 02/12/22 11/27/19 History Wellbutrin SR 150 mg PO BID 11/28/19 02/12/22 11/28/19 History amitriptyline 10 mg PO BEDTIME 11/28/19 02/12/22 11/27/19 History fluticasone fur. 100 mcg-umeclid 1 inh INHALATION DAILY PRN 11/28/19 02/12/22 Unknown History 62.5 mcg-vilant 25 mcg inhalat.powder (Trelegy Ellipta) omeprazole 20 mg capsule,delayed 20 mg PO DAILY 11/28/19 02/12/22 11/28/19 History release polyethylene glycol 3350 17 17 g PO DAILY 11/28/19 02/12/22 Unknown History gram/dose oral powder (Miralax) pregabalin 75 mg capsule (Lyrica) 75 mg PO TID 11/28/19 02/12/22 11/28/19 History solifenacin 10 mg tablet 10 mg PO DAILY 11/28/19 02/12/22 11/28/19 History levothyroxine 100 mcg tablet 100 mcg PO DAILY #30 tab 11/30/19 02/12/22 Unknown Rx (Levoxyl) losartan 50 mg tablet 50 mg PO DAILY #30 tab 11/30/19 02/12/22 Unknown Rx fluoxetine 20 mg capsule (Prozac) 20 mg PO DAILY 06/10/21 02/12/22 Unknown History Allergies Allergy/AdvReac Type Severity Reaction Status Date / Time hydromorphone [From Dilaudid] Allergy Severe makes pt Verified 02/12/22 07:57 pass out oxycodone Allergy Severe hives Verified 02/12/22 07:57 Opioids - Morphine Analogues Allergy drives Verified 02/12/22 07:57 her up a wall Penicillins Allergy ALGY-Rash Verified 04/16/22 01:11 PFSH Acute PFSH: Medical History COPD (chronic obstructive pulmonary disease) Depression Fibromyalgia GERD (gastroesophageal reflux disease) History of renal dialysis Transient in 2017 after development of shock from post op infection right hip. Hypertension Hypothyroidism Osteoarthritis Overactive bladder Surgical History History of back surgery History of bilateral knee replacement History of History of hysterectomy History of right hip replacement History of tonsillectomy Hx of cervical spine surgery Family History Other Hypertension Social History Smoking and tobacco status: former smoker Alcohol intake: current Alcohol intake frequency: holidays/special occasions only Household members: spouse Marital status: Female Reproductive History: Para: 2 Vitals/I&O/Wt Last Vital Signs Temp 98 F 04/15/22 21:43 Pulse 96 04/16/22 00:19 Resp 16 04/16/22 00:19 BP 113/62 04/16/22 00:19 Pulse Ox 96 04/16/22 00:19 Weight last 48 hrs Weight 127.006 kg Physical Exam Narrative: GEN: Awake, alert and oriented, no acute distress CVS: S1S2 N RS: CTA B/L all areas Abd: Soft, nt/nd , bs+ STONE SPREADER OPERATOR: no focal neuro deficits EXT: Right leg immobilizer in place. Along the upper lateral aspect of the thigh there is noted to be a draining sinus with packing in place. Measures approximately 2 x 2 centimeter opening 5 to 6 cm deep. Necrotic sloughing is noted around the margins. Data : 04/15/22 23:00 04/15/22 23:00 Other Labs: Radiology Impressions Hip/Pelvis X-Ray 04/15/22 22:20 IMPRESSION: Right hip arthroplasty changes seen in place. Knee X-Ray 04/15/22 22:20 IMPRESSION: 1. Distal femoral metadiaphyseal comminuted impacted fracture with overlap of the fracture fragments. 2. Knee arthroplasty changes seen. Femur X-Ray 04/15/22 23:02 IMPRESSION: Distal femoral metadiaphyseal comminuted impacted fracture with overlap of the fracture fragments. Laboratory Results WBC 6.8 10^3/uL (4.0-10.0) 04/15/22 23:00 RBC 4.09 10^6/uL (4.1-5.3) L 04/15/22 23:00 Hgb 11.5 g/dL (11.5-15.3) 04/15/22 23:00 Hct 37.1 % (37.0-47.0) 04/15/22 23:00 MCV 90.7 fl (81-99) 04/15/22 23:00 MCH 28.1 pg (28.0-34.0) 04/15/22 23:00 MCHC 31.0 g/dL (30.0-36.0) 04/15/22 23:00 RDW 13.9 % (12.1-15.1) 04/15/22 23:00 Plt Count 325 10^3/cmm (130-400) 04/15/22 23:00 MPV 10.9 fL (7.4-10.4) H 04/15/22 23:00 Neut % (Auto) 61.6 % 04/15/22 23:00 Lymph % (Auto) 25.4 % 04/15/22 23:00 [place] % (Auto) 10.5 % 04/15/22 23:00 Eos % (Auto) 1.5 % 04/15/22 23:00 Baso % (Auto) 0.6 % 04/15/22 23:00 Neut # (Auto) 4.16 10^3/uL (1.8-7.7) 04/15/22 23:00 Lymph # (Auto) 1.7 10^3/uL (0.8-4.8) 04/15/22 23:00 [place] # (Auto) 0.7 10^3/uL (0.2-0.9) 04/15/22 23:00 Eos # (Auto) 0.1 10^3/uL (0.0-0.8) 04/15/22 23:00 Baso # (Auto) 0.0 10^3/uL (0.0-0.1) 04/15/22 23:00 Nucleated RBC % (auto) 0 % 04/15/22 23:00 Nucleated RBCs # 0.0 /100WBC 04/15/22 23:00 PT 14.10 SECONDS (12.1-14.9) 04/16/22 00:10 INR 1.06 (0.8-1.2) 04/16/22 00:10 APTT 29.3 SECONDS (23.9-36.7) 04/16/22 00:10 Sodium 128 mmol/L (136-145) L 04/15/22 23:00 Potassium 4.4 mmol/L (3.5-5.1) 04/15/22 23:00 Chloride 89 mmol/L (98-107) L 04/15/22 23:00 Carbon Dioxide 32 mmol/L (22-29) H 04/15/22 23:00 Anion Gap 11.4 (5-19) 04/15/22 23:00 BUN 17 mg/dL (8-23) 04/15/22 23:00 Creatinine 0.7 mg/dL (0.5-0.9) 04/15/22 23:00 GFR Calculation 83.2 mL/min (90-130) L 04/15/22 23:00 Glucose 84 mg/dL (65-115) 04/15/22 23:00 Calculated Osmolality 267 mOsm/kg (285-295) L 04/15/22 23:00 Calcium 8.9 mg/dL (8.5-10.5) 04/15/22:00 Total Bilirubin 0.3 mg/dL (0.15-1.2) 04/15/22 23:00 AST 17 U/L (0-32) 04/15/22 23:00 ALT 12 U/L (0-33) 04/15/22 23:00 Alkaline Phosphatase 89 IU/L (35-105) 04/15/22 23:00 Total Protein 6.9 g/dL (6.6-8.7) 04/15/22 23:00 Albumin 3.8 g/dL (3.5-5.2) 04/15/22 23: Globulin 3.1 g/dL (1.3-4.6) 04/15/22 23:00 TSH 1.16 uIU/mL (0.27-4.20) 04/15/22 23:00 A&P Assessment and plan (1) Closed femur fracture: Closed femur fracture as noted above on the x-rays. Immobilizer brace has been placed in the ER. As needed Toradol and tramadol for pain control. Orthopedics consult placed with Dr. Kendall. 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 She follows typically in [place] for the same. Sinus tract is particularly concerning given that patient has a history of right hip arthroplasty and a past infection around this joint as noted above in HPI. There is concern for underlying chronic osteomyelitis and/or prosthetic joint infection which could explain the chronicity of sinus tract overlying. Check inflammatory markers including ESR and CRP. CT with contrast of the right hip to evaluate for PJI and/or osteomyelitis. Would prefer an MRI, however patient states that she is extremely claustrophobic. Obtain prior treatment records from [place]. Currently patient is being treated with p.o. ciprofloxacin over the past month. We will continue this for now. Based on CT findings and inflammatory markers results if it appears patient does truly have a prosthetic joint infection and/or underlying osteo-, will discuss with orthopedics regarding feasibility of obtaining more proximal bone & joint cultures prior to changing any antibiotic treatment. Usual periop prophylaxis and oral ciprofloxacin to continue for now. Status: Acute Plan Patient offered transfer to [place] given her ongoing orthopedic care there, however patient declines transfer, preferring to continue at [facility]. Attestations Medical Necessity Statement*: anticipate>2midnight admission for above defined care Coding Level of Care Code Acute Stripping Machine Operator for Jdu Nicholed Diagnoses Closed femur fracture S72.90XA Draining cutaneous sinus tract L98.8
--- NOTE | 2022-04-16 03:48 | CTR_ITS ---
PROCEDURE INFORMATION: Exam: CT Right Lower Extremity With Contrast; Thigh Exam date and time: 04/16/2022 5:46 PM Age: 66 years old Clinical indication: Pain; Thigh; Right; Prior surgery; Surgery date: 6+ months; Additional info: Evalute for osteomyelitis/pji, S/P right hip arthroplasty 2017, now with persistent draining TECHNIQUE: Imaging protocol: CT of the Right lower extremity with intravenous contrast was performed. Exam focused on the thigh. Radiation optimization: All CT scans at this facility use at least one of these dose optimization techniques: automated exposure control; mA and/or kV adjustment per patient size (includes targeted exams where dose is matched to clinical indication); or iterative reconstruction. Contrast material: OMNI 350; Contrast volume: 95 ml; Contrast route: INTRAVENOUS (IV); COMPARISON: CR (LOW EXM, ) 04/15/2022 11:18 PM RADIATION DOSE METRICS: Total DLP (mGy-cm): 5689.8 FINDINGS: Limitations: Streak artifacts from the metallic structures. Incomplete visualization of the periphery of the lateral upper right thigh soft tissues. Bones/joints: Comminuted fracture of the distal femoral shaft again evident; continued mild over-riding of the fracture due to posterior displacement of the largest fragments in relationship to the mid femoral shaft. Mild posterior angulation of the distal femoral fracture as well. Extension of a medial fracture line into the medial femoral condyle and an anterior fracture line into the area of the femoral prosthesis. Total hip arthroplasty slightly more apparent on the recent x-rays. No periosteal reaction along the lateral aspect of the proximal femoral shaft. Continued normal alignment of the right hip joint prosthesis. Soft tissues: Multiple gas bubbles within the superficial aspect of the approximately 3 x 2.2 x 10.7 cm oblique linear soft tissue density in the superolateral right thigh extending superiorly from an apparent defect in the skin to the lateral margin of the right hip muscles. No gas bubbles within the right thigh muscles. CT/CT femur RT w con [id number] IMPRESSION: 1. Gas bubbles in the lateral aspect of an oblique linear soft tissue density in the subcutaneous fat of the upper right thigh, with a sinus tract or infected scar not differentiated. No suggestion of femoral osteomyelitis in this area. Normal alignment of the right hip joint prosthesis. 2. Comminuted fracture of the distal femoral shaft again evident as described above; extension of 2 fracture lines into the distal femur including the area of the femoral prosthesis.
[2022-04-16 04:12] LABS: Erythrocyte Sedimentation Rate 51 mm/hr (0-15)
[2022-04-16 04:28] LABS: C Reactive Protein 9.6 mg/L (0.0-4.9)
[2022-04-16] MEDS: TRAMadol 50 mg Tablet PO ×2 (04:39→14:09)
[2022-04-16] MEDS: enoxaparin 40 mg/0.4 mL Syringe SUBCUT (04:39)
[2022-04-16] MEDS: sodium chloride 0.9% 1,000 ML 50 ML IV (04:39)
[2022-04-16 07:53] VITALS: BP 110/61; PULSE 71; RESP 16; TEMP 36.4; O2SAT 97
[2022-04-16] MEDS: levothyroxine 100 mcg Tablet PO (08:29)
[2022-04-16] MEDS: pregabalin 75 mg Capsule PO ×3 (08:29→21:06)
[2022-04-16] MEDS: buPROPion SR (12 HR) 150 mg Tablet PO ×2 (08:29→18:20)
[2022-04-16] MEDS: losartan 50 mg Tablet PO (08:29)
[2022-04-16] MEDS: fluoxetine 20 mg Capsule PO (08:29)
[2022-04-16] MEDS: pantoprazole DR 40 mg Tablet PO (08:29)
[2022-04-16] MEDS: ciprofloxacin 500 mg Tablet PO ×2 (08:29→21:05)
[2022-04-16] MEDS: polyethylene glycol 3350 Pkt 17 gm PO (08:30)
--- NOTE | 2022-04-16 08:38 | PC.NURSE ---
discussed home medications with patient and directed her to have family bring in non-formulary medications.
[2022-04-16 11:53] VITALS: BP 154/66; PULSE 77; RESP 16; TEMP 36.6; O2SAT 97
[2022-04-16 15:34] VITALS: BP 111/71; PULSE 66; RESP 16; TEMP 36.6; O2SAT 98
--- NOTE | 2022-04-16 15:56 | PC.NURSE ---
Rounded with Dr. Ross. witnessed discussion of risk/ benefits of surgery with patient and .
--- NOTE | 2022-04-16 16:08 | PM.CONSULT ---
Providers/Reason For Consult Consulting Physician/Specialty*: Makenzie Ross MD Reason for Consult*: Right periprosthetic distal femur fracture around total knee arthroplasty Requesting Physician: Char Mirza MD Attending Physician: Gal Blandon MD Primary Care Provider: Nirav Pelletier History of Present Illness History of Present Illness Scarlet Tong is a 66 year old female who presented to the emergency last evening after a mechanical fall at home. Routinely, the patient is mobile via the use of a scooter and/or a rolling walker. The patient was in her usual state of health when she fell and her resulting injury is a right periprosthetic distal femur fracture. In this right lower extremity, the patient has a total hip and a total knee. The periprosthetic fracture is about the total knee. Complicating her story is that the patient has had a total hip arthroplasty in this right lower extremity in approximately 2017. Reportedly, she was returned to the operating room 3 subsequent x4 infection. By report, initially, there was a bacteria identified but she does not know what this was. With additional cultures, she has been told that this area is no longer infected. She recovered from her last surgery in 2017 and 2018. She did not have any symptoms through 2019. In the latter part of 2019, the patient began developing symptoms. She has had a sinus tract since that time. She notes that she packs it and takes oral antibiotics and the tract clears. Reportedly, she has been on ciprofloxacin over the past month. This information was not obtained in the emergency department. Her draining sinus was evaluated by Dr. Mirza upon admission once the patient was on the floor. I have discussed with the patient that we can address her distal femur fracture, however, we will not be able to address the problems with her hip arthroplasty. She describes 19 days in the hospital. Given her multiple other medical comorbidities, she will require higher level of care to address her hip and chronic draining sinus. Review of Systems General: Reports: 10 or more systems reviewed and unremarkable except in HPI and below Const: Denies: fever(s), chills or body aches Eyes: Denies: change in vision, blurry vision or photophobia ENMT: Reports: hoarseness; Denies: throat pain, enlarged tonsils, odynophagia or nasal congestion Card: Denies: chest pain, palpitations, irregular heart rhythm, edema, swelling of feet/ankles, lightheadedness, pre-syncope, dyspnea on exertion or orthopnea Resp: Denies: dyspnea, productive cough, non-productive cough, wheezing, stridor, pain on inspiration, change in phlegm color, hemoptysis or chest congestion GI: Denies: abdominal pain, nausea, vomiting, hematemesis, coffee ground emesis, dysphagia, heartburn, diarrhea, constipation, GI cramping, change in stool character, hematochezia or melena : Denies: flank pain, difficulty voiding, dysuria, urinary frequency, urinary urgency, urinary hesitancy or hematuria Musc: Denies: neck pain, back pain, extremity pain, joint swelling, joint warmth or deformity Neuro: Denies: headache(s), numbness in extremities, weakness in extremities, sensory changes, difficulty walking, frequent falls, dizziness, vertigo, behavioral changes, Slurred speech present or seizure-like activity Psych: Denies: anxiety, depression, suicidal ideation or homicidal ideation Endo: Denies: polyuria, polydipsia, tired all the time, cold intolerance or hot flashes Jesus Manuel/Lymph: Denies: easy bruising or easy bleeding All/Imm: Denies: acute wheezing Medications/Allergies Home Medications Medication Instructions Recorded Confirmed Last Taken Type amitriptyline 10 mg tablet 10 mg PO BEDTIME #0 11/28/19 04/16/22 11/27/19 History bupropion HCl 150 mg tablet,12 hr 300 mg PO DAILY #0 11/28/19 04/16/22 11/28/19 History sustained-release (Wellbutrin SR) diphenhydramine 25 1 tab PO BEDTIME #0 11/28/19 04/16/22 11/27/19 History mg-acetaminophen 500 mg tablet (Tylenol PM Extra Strength) fluticasone fur. 100 mcg-umeclid 1 inh INHALATION DAILY PRN 11/28/19 04/16/22 Unknown History 62.5 mcg-vilant 25 mcg inhalat.powder (Trelegy Ellipta) omeprazole 20 mg capsule,delayed 40 mg PO DAILY 11/28/19 04/16/22 11/28/19 History release polyethylene glycol 3350 17 17 g PO DAILY PRN 11/28/19 04/16/22 Unknown History gram/dose oral powder (Miralax) pregabalin 75 mg capsule (Lyrica) 225 mg PO DAILY 11/28/19 04/16/22 11/28/19 History solifenacin 10 mg tablet 10 mg PO DAILY 11/28/19 04/16/22 11/28/19 History levothyroxine 100 mcg tablet 100 mcg PO DAILY #30 tab 11/30/19 04/16/22 Unknown Rx (Levoxyl) losartan 50 mg tablet 50 mg PO DAILY #30 tab 11/30/19 04/16/22 Unknown Rx fluoxetine 20 mg capsule (Prozac) 20 mg PO DAILY 06/10/21 04/16/22 Unknown History Allergies Allergy/AdvReac Type Severity Reaction Status Date / Time hydromorphone [From Dilaudid] Allergy Severe makes pt Verified 02/12/22 07:57 pass out oxycodone Allergy Severe hives Verified 02/12/22 07:57 Opioids - Morphine Analogues Allergy drives Verified 02/12/22 07:57 her up a wall Penicillins Allergy ALGY-Rash Verified 04/16/22 01:11 Current Medications Generic Name Dose Route Start Last Admin Trade Name Natasha PRN Reason Stop Dose Admin Bupropion HCl 150 mg 04/16/22 09:00 04/16/22 08:29 Bupropion Sr (12 Hr) 150 Mg Tablet PO 150 mg BID GRACIELA Administration Ciprofloxacin HCl 500 mg 04/16/22 09:00 04/16/22 08:29 Ciprofloxacin 500 Mg Tablet PO 500 mg BID@0900,2100 GRACIELA Administration Protocol Enoxaparin Sodium 40 mg 04/16/22 04:00 04/16/22 04:39 Enoxaparin 40 Mg/0.4 Ml Syringe SUBCUT 40 mg Q24H GRACIELA Administration Fluoxetine HCl 20 mg 04/16/22 09:00 04/16/22 08:29 Fluoxetine 20 Mg Capsule PO 20 mg DAILY GRACIELA Administration Sodium Chloride 1,000 mls @ 50 mls/hr 04/16/22 04:00 04/16/22 04:39 Sodium Chloride 0.9% IV 50 mls/hr .Q20H GRACIELA Administration Levothyroxine Sodium 100 mcg 04/16/22 09:00 04/16/22 08:29 Levothyroxine 100 Mcg Tablet PO 100 mcg DAILY GRACIELA Administration Losartan Potassium 50 mg 04/16/22 09:00 04/16/22 08:29 Losartan 50 Mg Tablet PO 50 mg DAILY GRACIELA Administration Non-Formulary Medication 10 mg 04/16/22 09:00 04/16/22 08:38 Solifenacin PO Not Given DAILY GRACIELA Pantoprazole Sodium 40 mg 04/16/22 09:00 04/16/22 08:[address] 40 Mg Tablet PO 40 mg DAILY GRACIELA Administration Polyethylene Glycol 17 gm 04/16/22 09:00 04/16/22 08:30 Polyethylene Glycol 3350 Pkt 17 Gm PO 17 gm DAILY GRACIELA Administration Pregabalin 75 mg 04/16/22 09:00 04/16/22 14:09 Pregabalin 75 Mg Capsule PO 75 mg TID GRACIELA Administration Tramadol HCl 50 mg 04/16/22 03:59 04/16/22 14:09 Tramadol 50 Mg Tablet PO 50 mg Q6H PRN Administration MODERATE PAIN PFSH Acute PFSH: Medical History (Updated 04/16/22 @ 16:21 by Makenzie Ross MD) COPD (chronic obstructive pulmonary disease) Depression Fibromyalgia GERD (gastroesophageal reflux disease) History of renal dialysis Transient in 2017 after development of shock from post op infection right hip. Hypertension Hypothyroidism Osteoarthritis Overactive bladder Surgical History (Updated 04/16/22 @ 16:19 by Makenzie Ross MD) History of back surgery History of bilateral knee replacement History of History of hysterectomy History of right hip replacement History of tonsillectomy Hx of cervical spine surgery Family History Other Hypertension Social History Smoking and tobacco status: former smoker Alcohol intake: current Alcohol intake frequency: holidays/special occasions only Household members: spouse Marital status: Female Reproductive History: Para: 2 Vitals/I&O/Wt Last Vital Signs Temp 97.9 F 04/16/22 15:34 Pulse 66 04/16/22 15:34 Resp 16 04/16/22 15:34 BP 111/71 04/16/22 15:34 Pulse Ox 98 04/16/22 15:34 04/16/22 04/16/22 04/16/22 06:59 14:59 22:59 Intake Total 360 / 360 Balance 360 / 360 Weight last 48 hrs Weight 280 lb Physical Exam Const: COMMON NORMALS: no acute distress, patient oriented x3 and alert GENERAL APPEARANCE: cooperative and comfortable NUTRITIONAL APPEARANCE: obese ORIENTATION/CONSCIOUSNESS: Yes awake HENMT: COMMON NORMALS: normocephalic and atraumatic HEAD & SCALP: normocephalic and atraumatic Eye: GENERAL EYE: appearance normal, both eyes and all related structures Chest: COMMONS NORMALS: normal inspection of the chest Resp: COMMON NORMALS: normal respiratory effort EFFORT & INSPECTION: Yes able to speak in complete sentences and Yes symmetric chest movement Extremity: RIGHT LOWER EXTREMITY: Yes hip joint (Patient has an incision consistent with prior total hip arthroplasty) Right hip: Yes inspection (Her sinus is covered with a dressing. This is removed for evaluation), Yes palpation (Minimal tenderness.) and Yes other (Draining sinus appears proximal to the area for new surgical incision) and Yes knee joint (Knee immobilizer is in place.) Right knee: Yes inspection (Minimal swelling.), Yes ROM and Yes neurovascular exam (Intact distally.) LEFT LOWER EXTREMITY: Yes knee joint (Incision consistent with left total knee arthroplasty) Neuro: COMMON NORMALS: patient oriented x3 SENSORIUM/ORIENTATION: Yes alert Psych: COMMON NORMALS: mental status grossly normal APPEARANCE: Yes grossly normal ATTITUDE: Yes calm and Yes engaged ATTENTION/CONCENTRATION: Yes attention grossly intact Skin: COMMON NORMALS: no rashes or lesions noted GENERAL SKIN EXAM: no rashes or lesions noted Urinary Catheter Management: Zimmerman: Cath Placed During This Visit: yes Reason for Continuing Indwelling Catheter: Required Immobilization for Trauma or Surgery or Anesthesia Urinary Catheter Date of Insertion: 04/16/22 Urinary Catheter Time of Insertion: 02:10 Data : 04/15/22 23:00 04/15/22 23:00 Xray Ortho: My impression: I have personally reviewed the imaging studies including right femur, right hip, and right knee. The patient has a comminuted periprosthetic distal femur fracture with a total knee arthroplasty in place. The fracture does appear to extend down to the level of the prosthesis. Additionally, she has a total hip arthroplasty in position. This is not a longstem revision. It is a primary hip arthroplasty. A&P Assessment and plan (1) Periprosthetic fracture around internal prosthetic knee joint: Patient fell from ground-level suffering a right periprosthetic distal femur fracture. She is status post bilateral total knee arthroplasties. Her history is complicated by the fact that she has had a right total hip arthroplasty with subsequent infection and 3 irrigation and debridement. This was all done in [place]. The patient continues to treat at [place] for a draining sinus which opened approximately 3 years after her last surgical debridement. The patient states her hip is hurt since the time it was placed. She notes that the sinus at times will close completely, and at other times will open and drain. Her current medication for this is ciprofloxacin. Primarily, she presents for treatment of her periprosthetic distal femur fracture which is displaced. At the time of admission, there was no mention of the draining sinus. This was only discovered after the patient was admitted to the hospital for definitive treatment. Status: Acute (2) Draining cutaneous sinus tract: Chronic since 2019 Status: Acute (3) Fall at home: Status: Acute Qualifiers: Encounter type: initial encounter Qualified Code(s): W19.XXXA - Unspecified fall, initial encounter; Y92.009 - Unspecified place in unspecified non-institutional (private) residence as the place of occurrence of the external cause (4) History of right hip replacement: With subsequent infectious debridement x3. She is under ongoing care at [place] and will need to return there for definitive treatment. Status: Acute Consult Attestations Medical Necessity Statement: Patient will require greater than 2 midnight stay. 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
[2022-04-16] MEDS: iohexol 350 mg/mL 100 mL Btl IV (18:01)
--- NOTE | 2022-04-16 18:28 | PM.MISC ---
Miscellaneous Note Purpose of Documentation: Cross coverage note Note: Admitted overnight. On examination lying comfortably in bed. Pain is well controlled. Denies any nausea vomiting, headache. States she follows up with ID physician, orthopedics surgeon at [facility]. Last antibiotic use was around 2 weeks ago given to her by her primary care provider. Plan: Follow-up orthopedic recommendation. ESR, CRP mildly elevated. Follow-up CT knee and hip. Patient should get MRI but she is claustrophobic. So we will hold off for now. Check TSH, iron panel, vitamin B12, folate, A1c, lipid panel. Will consult ID. Request documentation of ID, cultures, antibiotic use, orthopedic note from [facility].
[2022-04-16 20:00] VITALS: BP 138/84; PULSE 82; RESP 18; TEMP 36.8; O2SAT 98
[2022-04-16 20:07] LABS: Folate Level 12.2 ng/mL (4.8-37.3)
[2022-04-16 20:18] LABS: Procalcitonin 0.07 ng/mL (0-0.5); Thyroid Stimulating Hormone 0.69 uIU/mL (0.27-4.20); Vitamin B12 368 pg/mL (232-1245)
[2022-04-16 20:31] LABS: Iron 25 ug/dL (37-145); Percent Saturation 10.2 % (20-50); Total Iron Binding Capacity 244 mcg/dl; Unsaturated Iron Binding 219 ug/dL (112-347)
[2022-04-17] VITALS (44 sets, daily range): BP systolic 104–191; BP diastolic 49–158; PULSE 75–109; RESP 13–24; TEMP 35.9–36.9; O2SAT 70–100
--- NOTE | 2022-04-17 | XR_ITS ---
WS: [id number] XR femur RT 1V [id number] REASON FOR EXAM: JIN PICS FINDINGS: Plate and screw fixation of comminuted metadiaphyseal fracture of the distal right femur superior to total right knee arthroplasty. Surgical appliances and fracture fragments are in proper position and alignment. XR/XR femur RT 1V [id number] IMPRESSION: Fixation of femur fracture without abnormality.
--- NOTE | 2022-04-17 | SCC_ITS ---
Procedure done: Open reduction internal fixation right periprosthetic distal femur fracture with severe comminution 195.0 seconds of fluoroscopic guidance, for a cumulative dose of 20.29 mGy, was provided to Dr. Ross by the radiology department. C-arm images of the RIGHT femur were saved for the patient's permanent record. [facility]
[2022-04-17] MEDS: sodium chloride 0.9% 1,000 ML 50 ML IV (04:52)
[2022-04-17 05:19] LABS: Basophils % 0.3 %; Eosinophils # 0.1 10^3/uL (0.0-0.8); Eosinophils % 1.3 %; Hematocrit 24.8 % (37.0-47.0); Lymphocytes # 2.2 10^3/uL (0.8-4.8); Lymphocytes % 24.8 %; Mean Corpuscular HGB Conc 32.3 g/dL (30.0-36.0); Mean Corpuscular Hemoglobin 28.2 pg (28.0-34.0); Mean Corpuscular Volume 87.3 fl (81-99); Mean Platelet Volume 10.7 fL (7.4-10.4); Monocytes % 11.6 %; Neutrophils # 5.37 10^3/uL (1.8-7.7); Neutrophils % 61.5 %; Nucleated Red Blood Cells % 0 %; Platelet Count 240 10^3/cmm (130-400); Red Blood Count 2.84 10^6/uL (4.1-5.3); Red Cell Distribution Width 13.9 % (12.1-15.1); White Blood Count 8.7 10^3/uL (4.0-10.0)
[2022-04-17 05:46] LABS: Alanine Aminotransferase 10 U/L (0-33); Albumin Level 2.9 g/dL (3.5-5.2); Alkaline Phosphatase 69 IU/L (35-105); Anion Gap 10.4 (5-19); Aspartate Amino Transferase 13 U/L (0-32); Blood Urea Nitrogen 18 mg/dL (8-23); Calcium 8.2 mg/dL (8.5-10.5); Carbon Dioxide 30 mmol/L (22-29); Chloride 88 mmol/L (98-107); Chol HDL Ratio 2.88 mg/dL (0.0-4.40); Cholesterol 115 mg/dL (0-200); Globulin 2.8 g/dL (1.3-4.6); Glomerular Filtration Rate 71.3 mL/min (90-130); Glucose 112 mg/dL (65-115); HDL Cholesterol 40 mg/dL (60-100); LDL Cholesterol Calculated 65 mg/dL (50-129); Osmolality Calculated 261 mOsm/kg (285-295); Potassium 4.4 mmol/L (3.5-5.1); Sodium 124 mmol/L (136-145); Total Bilirubin 0.5 mg/dL (0.15-1.2); Total Protein 5.7 g/dL (6.6-8.7); Triglycerides 48 mg/dL (0-150); VLDL Cholestrol Calculation 10 mg/dL (0-30)
[2022-04-17 06:06] LABS: Estmated Average Glucose 85; Hemoglobin A1C 4.6 % (4.0-6.0)
--- NOTE | 2022-04-17 07:15 | ANES.PREANE2 ---
Pre-Anesthetic Assessment Height/Weight: Height 1.75 m Weight 127.006 kg Temp Pulse Resp BP Pulse Ox 96.6 F L 75 18 104/49 98 04/17/22 04:00 04/17/22 04:00 04/17/22 04:00 04/17/22 04:00 04/17/22 04:00 Preop Diagnosis: Right periprosthetic distal femur fracture around total knee arthroplasty Operation Date: 04/17/22 10:50 Proposed Procedures p ORIF Femur(Right) - Makenzie Ross MD Familial anesthetic complications: Patient has had hemorrhagic shock in prior surgery Was Beta Sung taken within 24 hours: N/A Was Clonidine taken within 24 hours: N/A Last intake: Intake Last Liquid Date 04/16/22 Last Liquid Time 23:00 Last Solid Date 04/16/22 Last Solid Time 18:00 Social No alcohol and No tobacco Exam alert, oriented x 3, clear to auscultation bilaterally and regular rate & rhythm Airway Submandibular: within normal limits Cervical ROM: within normal limits Mallampati: Class II Dentition: chipped Comments: Comments: Missing molars. Exam today does not show pitting edema, anasarca. No rales crackles or murmurs. Good radial pulse. Decreased skin turgor. Appears to be hypovolumic to euvolemic. Pulmonary Chronic Obstructive Pulmonary Disease Chronic respiratory failure on 3 LPM NC O2. Denies WEI. CV/HEM Anemia and Hypertension Prior dialysis requirement after post op infection right Hyponatremia ranging fro 128 on admission to 124 today . Previously admitted for acute hyponatremia hyposmolar in 2019 at which time she was taking HCTZ and drinking water continuously. Patient's HCTZ was stopped and fluids administered with improvement in Na levels and tremor. Hepatic None reported GI Gastroesophageal Reflux Disease Metabolic Thyroid Disease [facility] Fibromyalgia and Osteoarthritis/DJD Acute fracture sammi prosthetic distal femur s/p CHARY and TKA Neuropsych Anxiety, Cerebrovascular Accident and Depression Has resting tremor since CVA associated with hemorrhagic shock. Anesthetic Plan ASA status: 4 Anesthesia: Anesthesia Evaluation and General Other: We discussed risk and benefits of general anesthesia including PONV, sore throat (sometimes severe), corneal abrasion, positioning and peripheral nerve injuries, life threatening allergic reaction, post operative ICU admission requiring prolonged intubation, aspiration, stroke, heart attack, , and rare incidences of recall. Patient consents to proceed with general anesthesia. Plan GETA, arterial line, large bore PIVs. Plan strict BP control with use of blood, NSS, and albumin 5% which is hypertonic. Frequent labs to guide resuscitation. Will avoid rapid correction of Na and volume overload monitoring pulse pressure variation on arterial line in conjunction with other clinical parameters. Given prior hx of hemorrhagic shock, anemia today, expected intravascular hypovolumia with resuscitation requirement on induction anesthesia with hemodilution as well as expected EBL volume in OR having clinical significance will begin transfusion of pRBC pre op. Possible ICU admission. Risk of > 500 ml blood loss (7ml/kg in children): Yes, adequate IV access and fluids planned Other Pertinent Information Type and screen ordered this AM along with EKG. Discussed case with patient's floor nurse. Floor nurse placed order for type and tranfuse 1 unit of RBCs and I directed her to start this on the floor [facility]. I requested the floor RN to also place and order for crossmatch of 3 additional pRBC units for OR. Requested floor RN to place 2nd PIV, 18g or larger bore. Medications/Allergies Home Medications Medication Instructions Recorded Confirmed Last Taken Type amitriptyline 10 mg tablet 10 mg PO BEDTIME #0 11/28/19 04/16/22 11/27/19 History bupropion HCl 150 mg tablet,12 hr 300 mg PO DAILY #0 11/28/19 04/16/22 11/28/19 History sustained-release (Wellbutrin SR) diphenhydramine 25 1 tab PO BEDTIME #0 11/28/19 04/16/22 11/27/19 History mg-acetaminophen 500 mg tablet (Tylenol PM Extra Strength) fluticasone fur. 100 mcg-umeclid 1 inh INHALATION DAILY PRN 11/28/19 04/16/22 Unknown History 62.5 mcg-vilant 25 mcg inhalat.powder (Trelegy Ellipta) omeprazole 20 mg capsule,delayed 40 mg PO DAILY 11/28/19 04/16/22 11/28/19 History release polyethylene glycol 3350 17 17 g PO DAILY PRN 11/28/19 04/16/22 Unknown History gram/dose oral powder (Miralax) pregabalin 75 mg capsule (Lyrica) 225 mg PO DAILY 11/28/19 04/16/22 11/28/19 History solifenacin 10 mg tablet 10 mg PO DAILY 11/28/19 04/16/22 11/28/19 History levothyroxine 100 mcg tablet 100 mcg PO DAILY #30 tab 11/30/19 04/16/22 Unknown Rx (Levoxyl) losartan 50 mg tablet 50 mg PO DAILY #30 tab 11/30/19 04/16/22 Unknown Rx fluoxetine 20 mg capsule (Prozac) 20 mg PO DAILY 06/10/21 04/16/22 Unknown History Allergies Allergy/AdvReac Type Severity Reaction Status Date / Time hydromorphone [From Dilaudid] Allergy Severe makes pt Verified 02/12/22 07:57 pass out oxycodone Allergy Severe hives Verified 02/12/22 07:57 Opioids - Morphine Analogues Allergy drives Verified 02/12/22 07:57 her up a wall Penicillins Allergy ALGY-Rash Verified 04/16/22 01:11 Current Medications Generic Name Dose Route Start Last Admin Trade Name Freq PRN Reason Stop Dose Admin Bupropion HCl 150 mg 04/16/22 09:00 04/16/22 18:20 Bupropion Sr (12 Hr) 150 Mg Tablet PO 150 mg BID GRACIELA Administration Ciprofloxacin HCl 500 mg 04/16/22 09:00 04/16/22 21:05 Ciprofloxacin 500 Mg Tablet PO 500 mg BID@0900,2100 GRACIELA Administration Protocol Enoxaparin Sodium 40 mg 04/16/22 04:00 04/17/22 04:15 Enoxaparin 40 Mg/0.4 Ml Syringe SUBCUT Not Given Q24H GRACIELA Fluoxetine HCl 20 mg 04/16/22 09:00 04/16/22 08:29 Fluoxetine 20 Mg Capsule PO 20 mg DAILY GRACIELA Administration Sodium Chloride 1,000 mls @ 50 mls/hr 04/16/22 04:00 04/17/22 04:52 Sodium Chloride 0.9% IV 50 mls/hr .Q20H GRACIELA Administration Levothyroxine Sodium 100 mcg 04/16/22 09:00 04/16/22 08:29 Levothyroxine 100 Mcg Tablet PO 100 mcg DAILY GRACIELA Administration Losartan Potassium 50 mg 04/16/22 09:00 04/16/22 08:29 Losartan 50 Mg Tablet PO 50 mg DAILY GRACIELA Administration Non-Formulary Medication 10 mg 04/16/22 21:00 04/16/22 21:03 Amitriptyline PO Not Given BEDTIME GRACIELA Non-Formulary Medication 10 mg 04/16/22 09:00 04/16/22 08:38 Solifenacin PO Not Given DAILY GRACIELA Pantoprazole Sodium 40 mg 04/16/22 09:00 04/16/22 08:[address] 40 Mg Tablet PO 40 mg DAILY GRACIELA Administration Polyethylene Glycol 17 gm 04/16/22 09:00 04/16/22 08:30 Polyethylene Glycol 3350 Pkt 17 Gm PO 17 gm DAILY GRACIELA Administration Pregabalin 75 mg 04/16/22 09:00 04/16/22 21:06 Pregabalin 75 Mg Capsule PO 75 mg TID GRACIELA Administration Tramadol HCl 50 mg 04/16/22 03:59 04/16/22 14:09 Tramadol 50 Mg Tablet PO 50 mg Q6H PRN Administration MODERATE PAIN PFSH Anesthesia Medical History COPD (chronic obstructive pulmonary disease) Depression Fibromyalgia GERD (gastroesophageal reflux disease) History of renal dialysis Transient in 2017 after development of shock from post op infection right hip. Hypertension Hypothyroidism Osteoarthritis Overactive bladder Surgical History History of back surgery History of bilateral knee replacement History of History of hysterectomy History of right hip replacement History of tonsillectomy Hx of cervical spine surgery Family History Other Hypertension Social History Smoking and tobacco status: former smoker Alcohol intake: current Alcohol intake frequency: holidays/special occasions only Household members: spouse Marital status: Female Reproductive History Para: 2 Data Anesthesia : 04/17/22 03:55 04/17/22 03:55 Short CBC 04/15/22 04/17/22 Range/Units 23:00 03:55 WBC 6.8 8.7 (4.0-10.0) 10^3/uL Hgb 11.5 8.0 L D (11.5-15.3) g/dL Hct 37.1 24.8 L D (37.0-47.0) % MCV 90.7 87.3 (81-99) fl Plt Count 325 240 (130-400) 10^3/cmm Neut % (Auto) 61.6 61.5 % Neut # (Auto) 4.16 5.37 (1.8-7.7) 10^3/uL BMP 04/15/22 04/17/22 23:00 03:55 Sodium 128 L 124 L Potassium 4.4 4.4 Chloride 89 L 88 L Carbon Dioxide 32 H 30 H BUN 17 18 Creatinine 0.7 0.8 Glucose 84 112 Calcium 8.9 8.2 L Liver Function 04/15/22 04/17/22 Range/Units 23:00 03:55 Total Bilirubin 0.3 0.5 (0.15-1.2) mg/dL AST 17 13 (0-32) U/L ALT 12 10 (0-33) U/L Alkaline Phosphatase 89 69 (35-105) IU/L Albumin 3.8 2.9 L (3.5-5.2) g/dL Coags 04/15/22 04/15/22 04/16/22 23:00 23:00 00:10 ESR 51 H PT 14.10 INR 1.06 APTT 29.3 C-Reactive Protein 9.6 H Cardiac Studies: No Data to Display
--- NOTE | 2022-04-17 07:19 | ECG_ITS ---
[facility] Test Date: 2022-04-17 Pat Name: Scarlet Tong Department: Room: 260 Gender: Female Named Account Executive: : 1955 Requested By: Aviva Sarmiento Order Number: [id number] Reading MD: Lucas Rosa M.D. Measurements Intervals [place] Rate: 79 P: -13 CA: 161 QRS: 0 QRSD: 109 T: 77 QT: 375 QTc: 430 Interpretive Statements SINUS RHYTHM WITH OCCASIONAL SUPRAVENTRICULAR PREMATURE COMPLEXES NONSPECIFIC T-WAVE ABNORMALITY Compared to ECG 11/29/2019 02:12:23 No significant changes Electronically Signed On 04-18-2022 8:09:27 CDT by Lucas Rosa M.D. [id number]
--- NOTE | 2022-04-17 09:10 | PC.NURSE ---
patient taken to preop by Marcia LEZAMA.
[2022-04-17] MEDS: acetaminophen 1,000 MG/100 ML PIGGYBACK 400 MG IV (09:26)
[2022-04-17] MEDS: albumin 12.5 GM/250 ML VIAL IV (09:40)
[2022-04-17] MEDS: CELEcoxib 200 mg Capsule 400 MG PO (10:07)
--- NOTE | 2022-04-17 10:29 | SUR.PHASEI ---
0919 PT AWAKE ALERT AT BEDSIDE PT TO OPS BAY 8 PER PED FAMILY WITH PT. PT HAS RT HIPS DRESSING D/I HENRY TO DD WITH LARGE AMT YELLOW URINE NOTED FOOT PUMPS ON BILATERALLY, IV TO LT AC #20 NS UP AT KVO RATE APPROX 800JML FROM FLOOR, IV PIID #[id number] UPPER ARM. [address] OCHOA AT BEDSIDE
[2022-04-17] MEDS: vancomycin 1,000 MG in sodium chloride 0.9% 250 ML 250 MG IV (10:41)
[2022-04-17] MEDS: ceFAZolin 2,000 MG in sodium chloride 0.9% (plus) 50 ML 100 MG IV (11:35)
--- NOTE | 2022-04-17 12:07 | P.PN_ITS ---
Subjective Subjective: No acute vents overnight. Patient denies any nausea vomiting, headache. Plan for ORIF today. Vitals/I&O/Wt Last Vital Signs Temp 98.5 F 04/17/22 11:12 Pulse 84 04/17/22 11:12 Resp 18 04/17/22 11:12 BP 108/65 04/17/22 11:12 Pulse Ox 100 04/17/22 11:12 04/16/22 04/17/22 04/17/22 22:59 06:59 14:59 Intake Total 360 / 720 1000 / 1720 350 / 350 Output Total 1100 / 1100 Balance 360 / 720 1000 / 1720 -750 / -750 Weight last 48 hrs Weight 127.006 kg Physical Exam Narrative: GEN: Awake, alert and oriented, no acute distress CVS: S1S2 N RS: CTA B/L all areas Abd: Soft, nt/nd , bs+ SYSTEMS TESTING LABORATORY TECHNICIAN: no focal neuro deficits EXT: Right leg immobilizer in place. Along the upper lateral aspect of the thigh there is noted to be a draining sinus with packing in place. Measures approximately 2 x 2 centimeter opening 5 to 6 cm deep. Necrotic sloughing is noted around the margins. Urinary Catheter Management: Zimmerman: Cath Placed During This Visit: yes Reason for Continuing Indwelling Catheter: Other Urinary Catheter Date of Insertion: 04/16/22 Urinary Catheter Time of Insertion: 02:10 Data : 04/17/22 03:55 04/17/22 03:55 Micro: Microbiology 04/16/22 14:15 Gram Stain - Final Hip - #1 Wound Culture - Preliminary A&P Assessment and plan (1) Periprosthetic fracture around internal prosthetic knee joint: Orthopedics consulted. Plan for ORIF today. Physical therapy, pain control, anticoagulation as per orthopedic team. 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 She follows typically in [place] for the same. Sinus tract is particularly concerning given that patient has a history of right hip arthroplasty and a past infection around this joint as noted above in HPI. There is concern for underlying chronic osteomyelitis and/or prosthetic joint infection which could explain the chronicity of sinus tract overlying. Request documentation from [place] with orthopedics and ID notes. ESR, CRP mildly elevated which could be secondary to recent fracture. CT femur results appreciated. PGI less likely. For now continue with home ciprofloxacin. Will consult ID for further recommendations. If possible wound culture. Aggressive wound care. Status: Acute (3) History of right hip replacement: Status: Acute (4) Hyponatremia: Chronic. Baseline sodium level seems to be running from 1 25-1 32. Currently 124. Check urine lites. Serum osmolality slightly on lower side to 261 on admission. Patient is on multiple medications which can cause her to have salt-losing hyponatremia. Will continue to monitor daily for now. Salt tablet 1 mg twice daily for now after urine studies are taken. Status: Chronic Plan Full code. NPO. Anticoagulation as per orthopedic team. Diet to be advanced postoperatively as per surgical team. Attestations Medical Necessity Statement*: Requires further hospitalization for management of femur fracture around internal prosthetic knee joint, hyponatremia Time Spent in Patient Care: Greater than 35 minutes Coding Level of Care Code Acute Fixed Capital Clerk for Bouchrag Fwd Diagnoses Draining cutaneous sinus tract L98.8 History of right hip replacement Z96.641 Periprosthetic fracture around internal prosthetic knee joint M97.8XXA; Z96.659 Hyponatremia E87.1
[2022-04-17] MEDS: ceFAZolin 1,000 mg SDV 1000 MG IRRIGATION ×2 (13:24→16:20)
--- NOTE | 2022-04-17 14:17 | PC.NURSE ---
report called to BJ in ICU. Marcia LEZAMA picked up belongings to take to patients family in PACU.
--- NOTE | 2022-04-17 14:27 | SUR.PHASEI ---
PT TO GO TO ICU 11 PT BELONGINGS TO ROOM 11, PT PURSE WALLET AND RING , AND LARGE BLACK BACKPACK TO PATIENT'S IN THE SURGICAL WAITING AREA, THREE FAMILY MEMEBERS WITNESSED ALSO WITNESSED RECIEVING BLUE PURSE WITH WALLET WITH SIMPLE GOLD RING IN ZIPPER AREA. THE BLACK BACKPACK. FLOWER AND CLOTHING BAG TO ICU WITH RN. FAMILY UPDATED PT SURGERY IS GOING WELL , PT IS STABLE , BUT WILL GO TO ICU BED FOR CLOSER MONITORING AFTER SURGERY. NO PROBLEMS OR COMPLAINTS VOICED.
[2022-04-17 14:39] LABS: Basophils % 0.4 %; Eosinophils # 0.1 10^3/uL (0.0-0.8); Hematocrit 30.3 % (37.0-47.0); Hemoglobin 9.9 g/dL (11.5-15.3); Lymphocytes # 2.4 10^3/uL (0.8-4.8); Mean Corpuscular HGB Conc 32.7 g/dL (30.0-36.0); Mean Corpuscular Hemoglobin 28.8 pg (28.0-34.0); Mean Corpuscular Volume 88.1 fl (81-99); Mean Platelet Volume 10.2 fL (7.4-10.4); Monocytes # 1.2 10^3/uL (0.2-0.9); Monocytes % 10.9 %; Neutrophils # 7.03 10^3/uL (1.8-7.7); Neutrophils % 65.3 %; Nucleated Red Blood Cells % 0 %; Platelet Count 209 10^3/cmm (130-400); Red Blood Count 3.44 10^6/uL (4.1-5.3); Red Cell Distribution Width 14.3 % (12.1-15.1); White Blood Count 10.8 10^3/uL (4.0-10.0)
[2022-04-17 14:50] LABS: Anion Gap 11.3 (5-19); Blood Urea Nitrogen 14 mg/dL (8-23); Calcium 8.9 mg/dL (8.5-10.5); Carbon Dioxide 24 mmol/L (22-29); Chloride 95 mmol/L (98-107); Glomerular Filtration Rate 83.2 mL/min (90-130); Glucose 106 mg/dL (65-115); Osmolality Calculated 263 mOsm/kg (285-295); Potassium 4.3 mmol/L (3.5-5.1); Sodium 126 mmol/L (136-145)
--- NOTE | 2022-04-17 15:21 | PM.OP ---
Operative Report Date of procedure: April 17, 2022 Pre-op diagnosis: Right periprosthetic distal femur fracture around total knee arthroplasty Post-op diagnosis: Right periprosthetic distal femur fracture around total knee arthroplasty with severe comminution Procedure done: Open reduction internal fixation right periprosthetic distal femur fracture with severe comminution Implants: Right 10 hole distal lateral femoral plate Specimens removed/disposition: Cultures Surgeon: Makenzie Ross Oil Expeller Operator: [facility] technicians Anesthesia: General (Intubated, ASA 4) Estimated blood loss (mL): 1,250 IV fluids (mL): 1,200 IV fluids: Additional 600 cc packed red blood cells Urine output (mL): 450 Complications: None Findings: Severely comminuted periprosthetic displaced and angulated right distal femur fracture Condition: stable Disposition: ICU (Then return to floor when appropriate for postoperative rehab.) Brief History: Scarlet Tong is a 66 year old female who presented to the emergency last evening after a mechanical fall at home.? Routinely, the patient is mobile via the use of a scooter and/or a rolling walker.? The patient was in her usual state of health when she fell and her resulting injury is a right periprosthetic distal femur fracture.? In this right lower extremity, the patient has a total hip and a total knee.? The periprosthetic fracture is about the total knee.? Complicating her story is that the patient has had a total hip arthroplasty in this right lower extremity in approximately 2017.? Reportedly, she was returned to the operating room 3 subsequent x4 infection.? By report, initially, there was a bacteria identified but she does not know what this was.? With additional cultures, she has been told that this area is no longer infected.? She recovered from her last surgery in 2017 and 2018.? She did not have any symptoms through 2019.? In the latter part of 2019, the patient began developing symptoms.? She has had a sinus tract since that time.? She notes that she packs it and takes oral antibiotics and the tract clears.? Reportedly, she has been on ciprofloxacin over the past month.? This information was not obtained in the emergency department.? Her draining sinus was evaluated by Dr. Mirza upon admission once the patient was on the floor.? I have discussed with the patient that we can address her distal femur fracture, however, we will not be able to address the problems with her hip arthroplasty.? She describes 19 days in the hospital.? Given her multiple other medical comorbidities, she will require higher level of care to address her hip and chronic draining sinus. With regard to her periprosthetic fracture in the right lower extremity, she is advised that she will need an open reduction internal fixation. 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 Questions were answered, and consents were signed. Procedure: Patient was brought to the operating theater. After undergoing adequate general anesthesia with intubation, ASA 4, the patient was transferred to the fracture table, positioned on the table and fluoroscopic guidance obtained throughout the surgical procedure. Prior to the commencement of the surgical procedure, a surgical pause was performed. At the time of the surgical pause, we confirmed the site and side of surgery as well as preoperative surgical markings and appropriate and timely administration of IV antibiotics, Ancef 2 g and vancomycin 1 g. An additional Ancef 2 g was given approximately 4 hours later.? Availability of equipment was also confirmed. Fluoroscopy was used throughout the procedure in AP and lateral planes. The patient was on a standard operating room table which was the Alcides table and translucent to imaging. This was a complex fracture secondary to the patient's morbid obesity and comminution at the fracture site. Also, her multiple other medical comorbidities are of significant concern. We were able to visualize the fracture.? The leg was prepped and draped in the normal fashion utilizing DuraPrep after the patient's more proximal sinus from her previous total hip arthroplasty was draped out of the surgical prep area. Incision was made after fluoroscopic guidance was utilized to determine the appropriate size plate. The plate chosen was a 10 hole distal lateral femoral plate. Subcutaneous tissues were noted to be quite deep and retraction was very difficult. Exposure of the fracture was also quite difficult. With this length of plate, we had 4 screw holes not involving fracture proximally.? Traction was placed across the fracture. We had near anatomic alignment and AP plane. We then used the plate and clamps to hold the fracture in a reduced position.? Evaluation of plate position in AP plane was accomplished, but the patient's leg was too heavy and the fracture too unstable to allow visualization and lateral plane until the plate was in position.? The plate and the fracture were evaluated both proximally and distally. When we were satisfied with position of the plate, it was pinned in place distally, and we then placed 1 screw proximally and 1 screw distally and added secondary screws to this before relieving traction. The plate was subsequently attached proximally and distally with multiple cortices.? We used a combination of locking and nonlocking screws. The nonlocking screws were primarily used where the plate required this construct of screw. Fluoroscopy was used to determine appropriate length of the screws and position of the plate.? We were satisfied, and the plate was attached without further difficulty.? Following attachment of the plate, the wound was copiously irrigated.? Imaging was again obtained, but this time, imaging was in both AP and lateral planes. There was some AP angulation at the fracture site, but it was felt to be acceptable. The fracture was nearly anatomic in AP plane. At that point, closure was accomplished of the tensor fascia carlos with 0 Vicryl.? This was followed by vancomycin powder and Surgiflo.? Subcutaneous tissues were closed with a combination of 0 Vicryl in the deeper subcutaneous tissues followed by 2-0 Monocryl.? Skin was closed with skin gonzalo.? We then placed Dermabond pernio, and OpSite.? The patient wasreturned to recovery in satisfactory condition. The patient will be discharged to the floor for postoperative rehabilitation and pain management.? Cultures were obtained. Related Problem List Diagnoses (1) Periprosthetic fracture around internal prosthetic knee joint: (2) History of bilateral knee replacement: (3) History of right hip replacement: (4) Draining cutaneous sinus tract:
--- NOTE | 2022-04-17 15:35 | P.ANESPOST_ITS ---
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 Today patient had intraop blood loss of 1250 ml and a pressor requirement during the case. She is on continuous NC O2 and has chronic hyponatremia. Given this prior hx, todays case, and the patients co morbidities I requested ICU bed for post op monitoring. Case discussed with Dr. Blandon who accepted ICU disposition post op. Extubated in OR without complications, off pressors, on 10 LPM simples mask. Patient taken to ICU on full monitors, spontaneously breathing, 10 LPM simple mask. VSS throughout. Handoff report given by [employer] RETAILER SALES CONSULTANT to HOT PRESS OPERATOR including fluids in/out, medications administered, and operative course. Report accepted.
--- NOTE | 2022-04-17 16:00 | XRR_ITS ---
PROCEDURE INFORMATION: Exam: XR Right Femur Exam date and time: 04/17/2022 4:30 PM Age: 66 years old Clinical indication: Device placement; Other: Hardware above knee; Prior surgery; Surgery date: Post-operative (0-2 days); Additional info: Status post orif TECHNIQUE: Imaging protocol: Radiologic exam of the Right femur. Views: 2 views. COMPARISON: CT femur RT w con [id number] 04/16/2022 5:46 PM FINDINGS: Bones/joints: Intact plate and screws along the lateral distal femur. Comminuted fracture of the distal femoral metaphysis with near anatomic alignment of the fracture site. Unremarkable right hip prosthesis. Unremarkable total knee prosthesis. Soft tissues: Skin gonzalo noted. Trace soft tissue gas. XR/XR femur RT min 2V* [id number] IMPRESSION: Near anatomic alignment of the comminuted fracture site in the distal femoral metaphysis status post internal fixation. No apparent surgical complications.
[2022-04-17] MEDS: buPROPion SR (12 HR) 150 mg Tablet PO (17:53)
--- NOTE | 2022-04-17 19:14 | PC.NURSE ---
has refused to have ice pack to right leg
[2022-04-17] MEDS: pregabalin 75 mg Capsule PO (21:00)
--- NOTE | 2022-04-17 21:28 | PM.CONSULT ---
Providers/Reason For Consult Consulting Physician/Specialty*: Dr. Mirza/Infectious Disease Reason for Consult*: Possible PJI Requesting Physician: Dr. Blandon/Dr. Ross Attending Physician: Gal Blandon MD Primary Care Provider: Nirav Pelletier History of Present Illness History of Present Illness Scarlet Tong is a 66 year old female currently admitted to the hospital on April 16, 2022 after a mechanical fall and resulting distal femoral fracture for which she is undergoing further management. 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 I had previously evaluated this patient as hospitalist on April 16, 2020. From my H&P that day, following is her history. She has noted on exam today to have a draining sinus over the upper upper lateral thigh.? Patient states that she has had a draining sinus over this area on and off for about a year now.? The opening of the sinus appears to be at the distal end of her previous incision site for hip replacement in 2017.? Patient had right hip arthroplasty in 2017 in [place].? Postop course was complicated by infection.? Per her history, it is my understanding that shortly after her hip replacement she developed an infection around her newly replaced hip joint and underwent I&D of her hip.? She states that it was determined that her prosthesis was?not?infected. There was a bacteria identified however she does not recall the name of this organism.? She was treated with a few weeks of oral antibiotics, denies ever having been on prolonged IV antibiotic treatment.? She continues to have the same prosthesis at this time. This I&D surgery was complicated by hemorrhagic shock with source of bleeding around the right femur.? She had additional complications of acute kidney injury requiring dialysis and and also developed a stroke as a result of circulatory shock.? She slowly recovered from her last surgery by 2018.? Through 2017, 2018 she did not have any infective symptoms.? Through the latter part of 2019 she started developing a recurrent draining sinus along the upper part of her right hip close to her incision line from the past surgery.? Per her this sinus usually heals by packing the cavity and taking oral antibiotics. Most recently it is estimated to be 6cm in depth.? There are times when the sinus has completely closed in the past.? Most recently the sinus has been draining purulent appearing material over the past 2 months.? She does follow with her orthopedician up in [place] and states that the sinus has been cultured multiple times but has not revealed any microorganisms.? She has been on ciprofloxcin empirically over the past month.? She states that multiple x-rays and either CT or MRI have been performed sometime in the past 3 months and it was determined that her hip is not infected.? Record of these imaging studies is not currently available to us. Due to concern for underlying chronic osteomyelitis and/or prosthetic joint infection, a CT of the right hip and inflammatory markers were obtained. CRP returned at 9.6, ESR at 51.(Comparative baseline at 25 from 2009). Ct did not show any any evidence of PJI or osteomyelitis. Patient has been afebrile and hemodynamically stable during the course of her admission here. Review of Systems General: Reports: 10 or more systems reviewed and unremarkable except in HPI and below Const: Denies: fever(s), chills or body aches Eyes: Denies: change in vision, blurry vision or photophobia ENMT: Reports: hoarseness; Denies: throat pain, enlarged tonsils, odynophagia or nasal congestion Card: Denies: chest pain, palpitations, irregular heart rhythm, edema, swelling of feet/ankles, lightheadedness, pre-syncope, dyspnea on exertion or orthopnea Resp: Denies: dyspnea, productive cough, non-productive cough, wheezing, stridor, pain on inspiration, change in phlegm color, hemoptysis or chest congestion GI: Denies: abdominal pain, nausea, vomiting, hematemesis, coffee ground emesis, dysphagia, heartburn, diarrhea, constipation, GI cramping, change in stool character, hematochezia or melena : Denies: flank pain, difficulty voiding, dysuria, urinary frequency, urinary urgency, urinary hesitancy or hematuria Musc: Denies: neck pain, back pain, extremity pain, joint swelling, joint warmth or deformity Neuro: Denies: headache(s), numbness in extremities, weakness in extremities, sensory changes, difficulty walking, frequent falls, dizziness, vertigo, behavioral changes, Slurred speech present or seizure-like activity Psych: Denies: anxiety, depression, suicidal ideation or homicidal ideation Endo: Denies: polyuria, polydipsia, tired all the time, cold intolerance or hot flashes Jesus Manuel/Lymph: Denies: easy bruising or easy bleeding Medications/Allergies Home Medications Medication Instructions Recorded Confirmed Last Taken Type amitriptyline 10 mg tablet 10 mg PO BEDTIME #0 11/28/19 04/16/22 11/27/19 History bupropion HCl 150 mg tablet,12 hr 300 mg PO DAILY #0 11/28/19 04/16/22 11/28/19 History sustained-release (Wellbutrin SR) diphenhydramine 25 1 tab PO BEDTIME #0 11/28/19 04/16/22 11/27/19 History mg-acetaminophen 500 mg tablet (Tylenol PM Extra Strength) fluticasone fur. 100 mcg-umeclid 1 inh INHALATION DAILY PRN 11/28/19 04/16/22 Unknown History 62.5 mcg-vilant 25 mcg inhalat.powder (Trelegy Ellipta) omeprazole 20 mg capsule,delayed 40 mg PO DAILY 11/28/19 04/16/22 11/28/19 History release polyethylene glycol 3350 17 17 g PO DAILY PRN 11/28/19 04/16/22 Unknown History gram/dose oral powder (Miralax) pregabalin 75 mg capsule (Lyrica) 225 mg PO DAILY 11/28/19 04/16/22 11/28/19 History solifenacin 10 mg tablet 10 mg PO DAILY 11/28/19 04/16/22 11/28/19 History levothyroxine 100 mcg tablet 100 mcg PO DAILY #30 tab 11/30/19 04/16/22 Unknown Rx (Levoxyl) losartan 50 mg tablet 50 mg PO DAILY #30 tab 11/30/19 04/16/22 Unknown Rx fluoxetine 20 mg capsule (Prozac) 20 mg PO DAILY 06/10/21 04/16/22 Unknown History Allergies Allergy/AdvReac Type Severity Reaction Status Date / Time hydromorphone [From Dilaudid] Allergy Severe makes pt Verified 02/12/22 07:57 pass out oxycodone Allergy Severe hives Verified 02/12/22 07:57 Opioids - Morphine Analogues Allergy drives Verified 02/12/22 07:57 her up a wall Penicillins Allergy ALGY-Rash Verified 04/16/22 01:11 Current Medications Generic Name Dose Route Start Last Admin Trade Name Freq PRN Reason Stop Dose Admin Bupropion HCl 150 mg 04/16/22 09:00 04/17/22 17:53 Bupropion Sr (12 Hr) 150 Mg Tablet PO 150 mg BID GRACIELA Administration Ciprofloxacin HCl 500 mg 04/16/22 09:00 04/17/22 16:14 Ciprofloxacin 500 Mg Tablet PO Not Given BID@0900,2100 [facility] Protocol Enoxaparin Sodium 40 mg 04/16/22 04:00 04/17/22 04:15 Enoxaparin 40 Mg/0.4 Ml Syringe SUBCUT Not Given Q24H GRACIELA Fluoxetine HCl 20 mg 04/16/22 09:00 04/17/22 16:14 Fluoxetine 20 Mg Capsule PO Not Given DAILY GRACIELA Sodium Chloride 1,000 mls @ 50 mls/hr 04/16/22 04:00 04/17/22 04:52 Sodium Chloride 0.9% IV 50 mls/hr .Q20H GRACIELA Administration Vancomycin HCl 1,000 mg/ 250 mls @ 250 mls/hr 04/18/22 10:40 04/17/22 16:19 Sodium Chloride IV 04/18/22 11:39 Not Given ONCE ONE Protocol Cefazolin Sodium 2,000 mg/ 50 mls @ 100 mls/hr 04/17/22 22:00 04/17/22 21:17 Dextrose IV 100 mls/hr Q8H GRACIELA Administration Levothyroxine Sodium 100 mcg 04/16/22 09:00 04/17/22 16:14 Levothyroxine 100 Mcg Tablet PO Not Given DAILY GRACIELA Losartan Potassium 50 mg 04/16/22 09:00 04/17/22 16:21 Losartan 50 Mg Tablet PO Not Given DAILY GRACIELA Non-Formulary Medication 10 mg 04/16/22 21:00 04/16/22 21:03 Amitriptyline PO Not Given BEDTIME GRACIELA Non-Formulary Medication 10 mg 04/16/22 09:00 04/17/22 16:15 Solifenacin PO Not Given DAILY GRACIELA Pantoprazole Sodium 40 mg 04/16/22 09:00 04/17/22 16:[address] 40 Mg Tablet PO Not Given DAILY GRACIELA Polyethylene Glycol 17 gm 04/16/22 09:00 04/17/22 16:15 Polyethylene Glycol 3350 Pkt 17 Gm PO Not Given DAILY GRACIELA Pregabalin 75 mg 04/16/22 09:00 04/17/22 16:27 Pregabalin 75 Mg Capsule PO Not Given TID GRACIELA Tramadol HCl 50 mg 04/16/22 03:59 04/16/22 14:09 Tramadol 50 Mg Tablet PO 50 mg Q6H PRN Administration MODERATE PAIN PFSH Acute PFSH: Medical History COPD (chronic obstructive pulmonary disease) Depression Fibromyalgia GERD (gastroesophageal reflux disease) History of renal dialysis Transient in 2017 after development of shock from post op infection right hip. Hypertension Hypothyroidism Osteoarthritis Overactive bladder Surgical History History of back surgery History of bilateral knee replacement History of History of hysterectomy History of right hip replacement History of tonsillectomy Hx of cervical spine surgery Family History Other Hypertension Social History Smoking and tobacco status: former smoker Alcohol intake: current Alcohol intake frequency: holidays/special occasions only Household members: spouse Marital status: Female Reproductive History: Para: 2 Vitals/I&O/Wt Last Vital Signs Temp 98.5 F 04/17/22 11:12 Pulse 84 04/17/22 18:30 Resp 18 04/17/22 18:00 BP 178/99 04/17/22 18:38 Pulse Ox 97 04/17/22 18:38 04/17/22 04/17/22 04/17/22 06:59 14:59 22:59 Intake Total 1000 / 1720 760 / 760 1300 / 2060 Output Total 1100 / 1100 1825 / 2925 Balance 1000 / 1720 -340 / -340 -525 / -865 Weight last 48 hrs Weight 127.006 kg Physical Exam Narrative: GEN: Awake, alert and oriented, no acute distress CVS: S1S2 N RS: CTA B/L all areas Abd: Soft, nt/nd , bs+ TAB CUTTER: no focal neuro deficits Urinary Catheter Management: Zimmerman: Cath Placed During This Visit: yes Reason for Continuing Indwelling Catheter: Other Urinary Catheter Date of Insertion: 04/16/22 Urinary Catheter Time of Insertion: 02:10 Data : 04/17/22 14:30 04/17/22 13:45 Other Labs: Radiology Impressions Hip/Pelvis X-Ray 04/15/22 22:20 IMPRESSION: Right hip arthroplasty changes seen in place. Knee X-Ray 04/15/22 22:20 IMPRESSION: 1. Distal femoral metadiaphyseal comminuted impacted fracture with overlap of the fracture fragments. 2. Knee arthroplasty changes seen. Femur CT 04/16/22 03:48 IMPRESSION: 1. Gas bubbles in the lateral aspect of an oblique linear soft tissue density in the subcutaneous fat of the upper right thigh, with a sinus tract or infected scar not differentiated. No suggestion of femoral osteomyelitis in this area. Normal alignment of the right hip joint prosthesis. 2. Comminuted fracture of the distal femoral shaft again evident as described above; extension of 2 fracture lines into the distal femur including the area of the femoral prosthesis. Femur X-Ray 04/17/22 16:00 IMPRESSION: Near anatomic alignment of the comminuted fracture site in the distal femoral metaphysis status post internal fixation. No apparent surgical complications. Laboratory Results WBC 10.8 10^3/uL (4.0-10.0) H 04/17/22 14:30 RBC 3.44 10^6/uL (4.1-5.3) L 04/17/22 14:30 Hgb 9.9 g/dL (11.5-15.3) L 04/17/22 14:30 Hct 30.3 % (37.0-47.0) L 04/17/22 14:30 MCV 88.1 fl (81-99) 04/17/22 14:30 MCH 28.8 pg (28.0-34.0) 04/17/22 14:30 MCHC 32.7 g/dL (30.0-36.0) 04/17/22 14:30 RDW 14.3 % (12.1-15.1) 04/17/22 14:30 Plt Count 209 10^3/cmm (130-400) 04/17/22 14:30 MPV 10.2 fL (7.4-10.4) 04/17/22 14:30 Neut % (Auto) 65.3 % 04/17/22 14:30 Lymph % (Auto) 22.0 % 04/17/22 14:30 [place] % (Auto) 10.9 % 04/17/22 14:30 Eos % (Auto) 1.0 % 04/17/22 14:30 Baso % (Auto) 0.4 % 04/17/22 14:30 Neut # (Auto) 7.03 10^3/uL (1.8-7.7) 04/17/22 14:30 Lymph # (Auto) 2.4 10^3/uL (0.8-4.8) 04/17/22 14:30 [place] # (Auto) 1.2 10^3/uL (0.2-0.9) H 04/17/22 14:30 Eos # (Auto) 0.1 10^3/uL (0.0-0.8) 04/17/22 14:30 Baso # (Auto) 0.0 10^3/uL (0.0-0.1) 04/17/22 14:30 Nucleated RBC % (auto) 0 % 04/17/22 14:30 Nucleated RBCs # 0.0 /100WBC 04/17/22 14:30 ESR 51 mm/hr (0-15) H 04/15/22 23:00 PT 14.10 SECONDS (12.1-14.9) 04/16/22 00:10 INR 1.06 (0.8-1.2) 04/16/22 00:10 APTT 29.3 SECONDS (23.9-36.7) 04/16/22 00:10 Sodium 126 mmol/L (136-145) L 04/17/22 13:45 Potassium 4.3 mmol/L (3.5-5.1) 04/17/22 13:45 Chloride 95 mmol/L (98-107) L 04/17/22 13:45 Carbon Dioxide 24 mmol/L (22-29) 04/17/22 13:45 Anion Gap 11.3 (5-19) 04/17/22 13:45 BUN 14 mg/dL (8-23) 04/17/22 13:45 Creatinine 0.7 mg/dL (0.5-0.9) 04/17/22 13:45 GFR Calculation 83.2 mL/min (90-130) L 04/17/22 13:45 Glucose 106 mg/dL (65-115) 04/17/22 13:45 Estimat Average Glucose 85 04/17/22 03:55 Hemoglobin A1c 4.6 % (4.0-6.0) 04/17/22 03:55 Calculated Osmolality 263 mOsm/kg (285-295) L 04/17/22 13:45 Calcium 8.9 mg/dL (8.5-10.5) 04/17/22 13:45 Iron 25 ug/dL (37-145) L 04/16/22 19:09 Iron Cancelled 04/16/22 19:09 TIBC 244 mcg/dl 04/16/22 19:09 TIBC Cancelled 04/16/22 19:09 % Saturation 10.2 % (20-50) L 04/16/22 19:09 % Saturation Cancelled 04/16/22 19:09 Unsat Iron Binding 219 ug/dL (112-347) 04/16/22 19:09 Unsat Iron Binding Cancelled 04/16/22 19:09 Total Bilirubin 0.5 mg/dL (0.15-1.2) 04/17/22 03:55 AST 13 U/L (0-32) 04/17/22 03:55 ALT 10 U/L (0-33) 04/17/22 03:55 Alkaline Phosphatase 69 IU/L (35-105) 04/17/22 03:55 C-Reactive Protein 9.6 mg/L (0.0-4.9) H 04/15/22 23:00 Total Protein 5.7 g/dL (6.6-8.7) L 04/17/22 03:55 Albumin 2.9 g/dL (3.5-5.2) L 04/17/22 03:55 Globulin 2.8 g/dL (1.3-4.6) 04/17/22 03:55 Triglycerides 48 mg/dL (0-150) 04/17/22 03:55 Cholesterol 115 mg/dL (0-200) 04/17/22 03:55 LDL Cholesterol, Calc 65 mg/dL (50-129) 04/17/22 03:55 Total VLDL Cholesterol 10 mg/dL (0-30) 04/17/22 03:55 HDL Cholesterol 40 mg/dL (60-100) L 04/17/22 03:55 Cholesterol/HDL Ratio 2.88 mg/dL (0.0-4.40) 04/17/22 03:55 Vitamin B12 368 pg/mL (232-1245) 04/16/22 19:09 Folate 12.2 ng/mL (4.8-37.3) 04/16/22 19:09 Procalcitonin 0.07 ng/mL (0-0.5) 04/16/22 19:09 Procalcitonin Cancelled 04/16/22 19:09 TSH 0.69 uIU/mL (0.27-4.20) 04/16/22 19:09 Ur Random Sodium 116 mmol/L 04/18/22 00:45 Ur Random Potassium 33 mmol/L 04/18/22 00:45 Ur Random Chloride 137 mmol/L 04/18/22 00:45 Blood Type O Positive 04/17/22 07:54 Rho(D) Type Positive 04/17/22 07:54 Antibody Screen Negative 04/17/22 07:54 Crossmatch See Detail 04/17/22 07:54 Micro: Microbiology 04/17/22 12:45 Gram Stain - Final Tissue 04/16/22 14:15 Gram Stain - Final Hip - #1 Wound Culture - Preliminary A&P Assessment and plan (1) Draining cutaneous sinus tract: Status: Acute (2) History of right hip replacement: Status: Acute (3) 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 Infectious disease service consulted for the draining sinus over her right upper thigh. Given the chronicity of this draining sinus tract, chief concern is for any underlying osteomyelitis and/or prosthetic joint infection. Inflammatory markers , which may be helpful as surrogate markers of PJI, are minimally elevated with CRP 9.6 and ESR at 51. Both of these are also acute inflammatory markers and may be currently elevated as a result of her recent stressor and fracture. No evidence of osteomyelitis of the femur on CT imaging, hip prosthesis appears to be well aligned. With CT findings, only minimally elevated markers and patient's history of extensive work-up already in progress at [place] (records still pending), there is lower suspicion of an acute infective process at the hip at this present time. Would not recommend any empiric prolonged antibiotic regimen for PJI hip/osteomyelitis at this time based on no compelling evidence of an ongoing infective process and lack of microbiological data. To make definitive diagnosis, patient will need more proximal bone biopsy and also possibly aspiration of the right hip to get microbiological evidence of infection and treat accordingly. The latter will require coordinated care among multiple specialties including orthopedics, infectious disease, Intervention radiology and physical testing supervisor (h/o multiple complications post op) and will be best achieved at a higher center where she is already established and being followed. CT findings of gas bubble most likely represent the open sinus tract, there are no surrounding signs of cellulitis. Etiology of persistent sinus remains unclear, perhaps may be related to pressure injury, Encourage her to get established with wound care and continue outpatient care for the same. Consult Attestations Medical Necessity Statement: per admitting and orthopedic service Coding Level of Care Code Acute Manager Port for g Dionisiod Diagnoses Periprosthetic fracture around internal prosthetic knee joint M97.8XXA; Z96.659 History of right hip replacement Z96.641 Draining cutaneous sinus tract L98.8
[2022-04-17] MEDS: ciprofloxacin 500 mg Tablet PO (23:00)
[2022-04-18] VITALS (41 sets, daily range): BP systolic 108–152; BP diastolic 48–91; PULSE 75–97; RESP 18–22; TEMP 36.5–36.9; O2SAT 87–100
[2022-04-18 01:25] LABS: Potassium, Radom Urine 33 mmol/L; Urine Random Chloride 137 mmol/L; Urine Random Sodium 116 mmol/L
--- NOTE | 2022-04-18 03:43 | PC.NURSE ---
Confusion Pt woke up from sleep extremely disoriented. Pt yelled at nursing staff, and stating that she wanting to leave the hospital. Disoriented to place and time. Denies pain. Pt removed L wrist IV, oxygen, and pulse ox cord. After reorientation and comfort techniques Pt is now calm and watching TV. Will continue to monitor.
[2022-04-18] MEDS: enoxaparin 40 mg/0.4 mL Syringe SUBCUT (05:31)
[2022-04-18] MEDS: buPROPion SR (12 HR) 150 mg Tablet PO ×2 (08:24→17:19)
[2022-04-18] MEDS: losartan 50 mg Tablet PO (08:25)
[2022-04-18] MEDS: pantoprazole DR 40 mg Tablet PO (08:25)
[2022-04-18] MEDS: levothyroxine 100 mcg Tablet PO (08:25)
[2022-04-18] MEDS: fluoxetine 20 mg Capsule PO (08:25)
[2022-04-18] MEDS: pregabalin 75 mg Capsule PO ×3 (08:25→20:09)
[2022-04-18] MEDS: ciprofloxacin 500 mg Tablet PO ×2 (08:27→20:09)
[2022-04-18] MEDS: sodium chloride 0.9% 1,000 ML 50 ML IV (08:30)
[2022-04-18 09:00] LABS: Basophils % 0.3 %; Eosinophils % 0.1 %; Hematocrit 28.8 % (37.0-47.0); Hemoglobin 9.7 g/dL (11.5-15.3); Lymphocytes # 1.2 10^3/uL (0.8-4.8); Lymphocytes % 10.4 %; Mean Corpuscular HGB Conc 33.7 g/dL (30.0-36.0); Mean Corpuscular Hemoglobin 28.5 pg (28.0-34.0); Mean Corpuscular Volume 84.7 fl (81-99); Mean Platelet Volume 10.3 fL (7.4-10.4); Monocytes # 0.7 10^3/uL (0.2-0.9); Monocytes % 5.6 %; Neutrophils # 9.79 10^3/uL (1.8-7.7); Neutrophils % 83.3 %; Nucleated Red Blood Cells % 0 %; Platelet Count 202 10^3/cmm (130-400); Red Cell Distribution Width 14.3 % (12.1-15.1); White Blood Count 11.8 10^3/uL (4.0-10.0)
--- NOTE | 2022-04-18 09:43 | PC.CHAP ---
Pastoral Care Encounter/Spiritual Assessment Type of Contact [] Declined tourist camp attendant visit [] Patient/Family/Request visit [] Outpatient visit [] Follow-up visit [] Physician referral [] Code/Alert [x] Routine visit [] Staff referral [] Actively dying [x] Patient sleeping [] Family support [] [] Out of room [] Palliative care [] [] Receiving care in room [] Pre-surgical visit [] Trauma [] Long length of stay [x] ICU visit [] Other: Relational/Emotional Strength [] Patient feels connected with others/family/visitors/staff [] Distress [] Loneliness/isolation [] Abandonment Spirituality of Patient [] Person of Cony [] Attends Temple of their [place] [] Believes in Prayer [] Reads Bible or Faith materials [] There are Spiritual issues to be addressed Optimization Engineer Interventions [x] Prayer [] Active listening [] Non-anxious presence [] Spiritual/emotional support [] Crisis/trauma care [] Spiritual counseling [] Bereavement support [] Provided bereavement packet [] Provided Bible/devotional materials [] Provided toy/stuffed animal, coloring book to patient or family member [] Provided Communion [] Anointing/[place] [] Salvation [x] Completed spiritual assessment [] Other: Impact on Illness or Injury [] Angry [] Fearful [] Anxious [] Often cries [] Exhaustion [] Unable to work [] Unable to attend anglican [] Unable to walk/stand [] Unable to read [] Unable to drive [] Unable to eat/drink [] Unable to sleep [] Unable to be with family [] Patient intubated [] Other: Summary Time spent with patient
[2022-04-18 09:58] LABS: Alanine Aminotransferase 8 U/L (0-33); Albumin Level 2.8 g/dL (3.5-5.2); Alkaline Phosphatase 55 IU/L (35-105); Anion Gap 11.4 (5-19); Aspartate Amino Transferase 15 U/L (0-32); Blood Urea Nitrogen 12 mg/dL (8-23); Calcium 8.4 mg/dL (8.5-10.5); Carbon Dioxide 27 mmol/L (22-29); Chloride 97 mmol/L (98-107); Globulin 2.8 g/dL (1.3-4.6); Glomerular Filtration Rate 99.4 mL/min (90-130); Glucose 119 mg/dL (65-115); Osmolality Calculated 273 mOsm/kg (285-295); Potassium 4.4 mmol/L (3.5-5.1); Sodium 131 mmol/L (136-145); Total Bilirubin 0.7 mg/dL (0.15-1.2); Total Protein 5.6 g/dL (6.6-8.7)
--- NOTE | 2022-04-18 14:35 | P.PN_ITS ---
Subjective Subjective: The patient is seen in the ICU awake and alert. She has minimal to no drainage on her dressing. Medications: Reviewed: Yes Vitals/I&O/Wt Last Vital Signs Temp 97.8 F 04/18/22 04:00 Pulse 92 04/18/22 13:00 Resp 18 04/18/22 09:52 BP 129/56 04/18/22 13:00 Pulse Ox 95 04/18/22 13:00 04/17/22 04/18/22 04/18/22 22:59 06:59 14:59 Intake Total 1400 / 2160 1480 / 3640 650 / 650 Output Total 1825 / 2925 1200 / 4125 Balance -425 / -765 280 / -485 650 / 650 Physical Exam Const: COMMON NORMALS: no acute distress, patient oriented x3 and alert GENERAL APPEARANCE: cooperative and comfortable NUTRITIONAL APPEARANCE: obese ORIENTATION/CONSCIOUSNESS: Yes awake HENMT: COMMON NORMALS: normocephalic and atraumatic HEAD & SCALP: normoceph alic and atraumatic Eye: GENERAL EYE: appearance normal, both eyes and all related structures Chest: COMMONS NORMALS: normal inspection of the chest Resp: COMMON NORMALS: normal respiratory effort EFFORT & INSPECTION: Yes able to speak in complete sentences and Yes symmetric chest movement Extremity: RIGHT LOWER EXTREMITY: Yes knee joint (Dressing is dry and intact in the distal portion of the thigh.) Right knee: Yes ROM (Not evaluated.) and Yes neurovascular exam (Intact distally.) Neuro: COMMON NORMALS: patient oriented x3 SENSORIUM/ORIENTATION: Yes alert Psych: COMMON NORMALS: mental status grossly normal APPEARANCE: Yes grossly normal ATTITUDE: Yes calm and Yes engaged ATTENTION/CONCENTRATION: Yes attention grossly intact Skin: COMMON NORMALS: no rashes or lesions noted GENERAL SKIN EXAM: no rashes or lesions noted Urinary Catheter Management: Zimmerman: Cath Placed During This Visit: yes Reason for Continuing Indwelling Catheter: Other Urinary Catheter Date of Insertion: 04/16/22 Urinary Catheter Time of Insertion: 02:10 Data : 04/18/22 08:53 04/18/22 08:53 Micro: Microbiology 04/17/22 12:45 Anaerobic Culture - Preliminary Tissue 04/17/22 12:45 Gram Stain - Final Tissue Tissue Culture - Preliminary 04/16/22 14:15 Gram Stain - Final Hip - #1 Wound Culture - Preliminary A&P Assessment and plan (1) Periprosthetic fracture around internal prosthetic knee joint: The patient is seen in the intensive care unit today with her . She is doing well. H&H has been stable. She will be allowed to get up to a chair with physical therapy. They may also range her hip and knee. She will need a [place] brace set at 0 to 20 degrees. She may have the knee immobilizer open while in bed in the meantime. Status: Acute (2) History of bilateral knee replacement: Status: Acute (3) History of right hip replacement: With subsequent infectious debridement x3. She is under ongoing care at [facility] and will need to return there for definitive treatment. Status: Acute (4) Draining cutaneous sinus tract: Chronic since 2019 Status: Acute Attestations Medical Necessity Statement*: Ongoing care following ORIF of comminuted periprosthetic femur fracture will require greater than 2 midnights. Coding Level of Care Code Acute [employer] Network Architect for Jud Mooney Diagnoses Periprosthetic fracture around internal prosthetic knee joint M97.8XXA; Z96.659 History of bilateral knee replacement Z96.653 History of right hip replacement Z96.641 Draining cutaneous sinus tract L98.8
--- NOTE | 2022-04-18 15:41 | P.PN_ITS ---
Subjective Subjective: No acute events overnight, s/p ORIF, ID inputs appreciated. Will DC art line, move patient to regular floor. vitals and labs have been reviewed. Medications: Medication Review Details: Generic Name Dose Route Start Last Admin Trade Name Natasha PRN Reason Stop Dose Admin Bupropion HCl 150 mg 04/16/22 09:00 04/18/22 08:24 Bupropion Sr (12 Hr) 150 Mg Tablet PO 150 mg BID GRACIELA Administration Ciprofloxacin HCl 500 mg 04/16/22 09:00 04/18/22 08:27 Ciprofloxacin 50 0 Mg Tablet PO 500 mg BID@0900,2100 GRACIELA Administration Protocol Enoxaparin Sodium 40 mg 04/16/22 04:00 04/18/22 05:31 Enoxaparin 40 Mg /0.4 Ml Syringe SUBCUT 40 mg Q24H GRACIELA Administration Fluoxetine HCl 20 mg 04/16/22 09:00 04/18/22 08:25 Fluoxetine 20 Mg Capsule PO 20 mg DAILY GRACIELA Administration Sodium Chloride 1,000 mls @ 50 ml s/hr 04/16/22 04:00 04/18/22 08:30 Sodium Chloride 0.9% IV 50 mls/hr .Q20H GRACIELA Administration Cefazolin Sodium 2 ,000 mg/ 50 mls @ 100 mls/ hr 04/17/22 22:00 04/18/22 05:31 Dextrose IV 100 mls/hr Q8H GRACIELA Administration Levothyroxine Sodi um 100 mcg 04/16/22 09:00 04/18/22 08:25 Levothyroxine 10 0 Mcg Tablet PO 100 mcg DAILY GRACIELA Administration Losartan Potassium 50 mg 04/16/22 09:00 04/18/22 08:25 Losartan 50 Mg T ablet PO 50 mg DAILY GRACIELA Administration Non-Formulary Medi cation 10 mg 04/16/22 21:00 04/17/22 23:00 Amitriptyline PO Not Given BEDTIME GRACIELA Non-Formulary Medi cation 10 mg 04/16/22 09:00 04/18/22 08:31 Solifenacin PO Not Given DAILY GRACIELA Pantoprazole Sodiu m 40 mg 04/16/22 09:00 04/18/22 08:[address] 40 Mg Tablet PO 40 mg DAILY GRACIELA Administration Polyethylene Glyco l 17 gm 04/16/22 09:00 04/18/22 08:31 Polyethylene Gly col 3350 Pkt 17 Gm PO Not Given DAILY GRACIELA Pregabalin 75 mg 04/16/22 09:00 04/18/22 08:25 Pregabalin 75 Mg Capsule PO 75 mg TID GRACIELA Administration Tramadol HCl 50 mg 04/16/22 03:59 04/16/22 14:09 Tramadol 50 Mg T ablet PO 50 mg Q6H PRN Administration MODERATE PAIN Vitals/I&O/Wt Last Vital Signs Temp 97.8 F 04/18/22 04:00 Pulse 85 04/18/22 14:00 Resp 18 04/18/22 09:52 BP 129/56 04/18/22 13:00 Pulse Ox 95 04/18/22 13:00 04/18/22 04/18/22 04/18/22 06:59 14:59 22:59 Intake Total 1480 / 3640 650 / 650 Output Total 1200 / 4125 Balance 280 / -485 650 / 650 Physical Exam Const: COMMON NORMALS: patient oriented x3 HENMT: COMMON NORMALS: normocephalic and atraumatic HEAD & SCALP: normocephalic and atraumatic Resp: COMMON NORMALS: clear to auscultation bilaterally EFFORT & INSPECTION: Yes symmetric chest movement AUSCULTATION: clear to auscultation bilaterally Cardio: COMMON NORMALS: regular rate, regular rhythm, S1 normal heart sound present, S2 normal heart sound present, No gallops present (Cardio), No murmurs present (Cardio), No rub (Cardio) and Peripheral pulses 2+ throughout RATE: regular rate RHYTHM: regular rhythm HEART SOUNDS: S1 normal heart sound present and S2 normal heart sound present PERIPHERAL PULSES: Peripheral pulses 2+ throughout GI: COMMON NORMALS: Normal to inspection, nondistended, normoactive bowel sounds present, Soft to palpation, non-tender, No hepatosplenomegaly present and no masses AUSCULTATION: Yes normoactive bowel sounds PALPATION: Yes Soft to palpation and Yes No hepatosplenomegaly present RECTAL EXAM: deferred Extremity: COMMON NORMALS: no clubbing, cyanosis or edema and no pedal edema Neuro: COMMON NORMALS: patient oriented x3 Urinary Catheter Management: Zimmerman: Cath Placed During This Visit: yes Reason for Continuing Indwelling Catheter: Other Urinary Catheter Date of Insertion: 04/16/22 Urinary Catheter Time of Insertion: 02:10 Data : 04/18/22 08:53 07/18/22 08:53 Micro: Microbiology 04/17/22 12:45 Anaerobic Culture - Preliminary Tissue 04/17/22 12:45 Gram Stain - Final Tissue Tissue Culture - Preliminary 04/16/22 14:15 Gram Stain - Final Hip - #1 Wound Culture - Preliminary A&P Assessment and plan (1) Draining cutaneous sinus tract: Status: Acute (2) History of right hip replacement: Status: Acute (3) 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 Infectious disease service consulted for the draining sinus over her right upper thigh. Given the chronicity of this draining sinus tract, chief concern is for any underlying osteomyelitis and/or prosthetic joint infection. Inflammatory ma rkers , which may be helpful as surrogate markers of PJI, are minimally elevated with CRP 9.6 and ESR at 51. Both of these are also acute inflammatory markers and may be currently elevated as a result of her recent stressor and fracture. No evidence of osteomyelitis of the femur on CT imaging, hip prosthesis appears to be well aligned. With CT findings, only minimally elevated markers and patient's history of extensive work-up already in progress at [place] (records still pending), there is lower suspicion of an acute infective process at the hip at this present time. Would not recommend any empiric prolonged antibiotic regimen for PJI hip/osteomyelitis at this time based on no compelling evidence of an ongoing infective process and lack of microbiological data. To make definitive diagnosis, patient will need more proximal bone biopsy and also possibly aspiration of the right hip to get microbiological evidence of infection and treat accordingly. The latter will require coordinated care among multiple specialties including orthopedics, infectious disease, Intervention radiology and metal spinner (h/o multiple complications post op) and will be best achieved at a higher center where she is already established and being followed. CT findings of gas bubble most likely represent the open sinus tract, there are no surrounding signs of cellulitis. Etiology of persistent sinus remains unclear, perhaps may be related to pressure injury, Encourage her to get established with wound care and continue outpatient care for the same. Attestations Medical Necessity Statement*: Patient is to be in hospital for management of distal femur fracture. 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
[2022-04-18] MEDS: amitriptyline 25 mg Tablet 12.5 MG PO (20:09)
--- NOTE | 2022-04-18 22:52 | PC.NURSE ---
Stable report called to nurse for patient going to room 251-1. Transferred via bed by two nurses, O2 NC 3 lpm, IV infusing, patent and intact, no distress noted or reported. Update and skin assessment performed with receiving nurse. All patient belongings, medication and paper chart delivered with patient.
[2022-04-19] VITALS (7 sets, daily range): BP systolic 103–119; BP diastolic 56–73; PULSE 71–107; RESP 16–18; TEMP 36.7–37.1; O2SAT 88–95
[2022-04-19] MEDS: sodium chloride 0.9% 1,000 ML 50 ML IV (05:05)
[2022-04-19] MEDS: enoxaparin 40 mg/0.4 mL Syringe SUBCUT (05:05)
[2022-04-19] MEDS: polyethylene glycol 3350 Pkt 17 gm PO (08:52)
[2022-04-19] MEDS: ciprofloxacin 500 mg Tablet PO ×2 (08:53→21:47)
[2022-04-19] MEDS: fluoxetine 20 mg Capsule PO (08:54)
[2022-04-19] MEDS: pregabalin 75 mg Capsule PO ×3 (08:54→21:47)
[2022-04-19] MEDS: pantoprazole DR 40 mg Tablet PO (08:54)
[2022-04-19] MEDS: buPROPion SR (12 HR) 150 mg Tablet PO ×2 (08:54→17:55)
[2022-04-19] MEDS: levothyroxine 100 mcg Tablet PO (08:54)
[2022-04-19] MEDS: losartan 50 mg Tablet PO (08:55)
[2022-04-19] MEDS: TRAMadol 50 mg Tablet PO ×2 (09:07→17:59)
[2022-04-19 13:20] LABS: SARS Covid-2 Antigen Negative (Negative)
--- NOTE | 2022-04-19 15:31 | PM.PN ---
Subjective Subjective: No acute events overnight, pain is better controlled, due for physical therapy evaluation today. Medications: Reviewed: Yes Medication Review Details: Generic Name Dose Route Start Last Admin Trade Name Natasha PRN Reason Stop Dose Admin Bupropion HCl 150 mg 04/16/22 09:00 04/18/22 08:24 Bupropion Sr (12 Hr) 150 Mg Tablet PO 150 mg BID GRACIELA Administration Ciprofloxacin HCl 500 mg 04/16/22 09:00 04/18/22 08:27 Ciprofloxacin 50 0 Mg Tablet PO 500 mg BID@0900,2100 GRACIELA Administration Protocol Enoxaparin Sodium 40 mg 04/16/22 04:00 04/18/22 05:31 Enoxaparin 40 Mg /0.4 Ml Syringe SUBCUT 40 mg Q24H GRACIELA Administration Fluoxetine HCl 20 mg 04/16/22 09:00 04/18/22 08:25 Fluoxetine 20 Mg Capsule PO 20 mg DAILY GRACIELA Administration Sodium Chloride 1,000 mls @ 50 ml s/hr 04/16/22 04:00 04/18/22 08:30 Sodium Chloride 0.9% IV 50 mls/hr .Q20H GRACIELA Administration Cefazolin Sodium 2 ,000 mg/ 50 mls @ 100 mls/ hr 04/17/22 22:00 04/18/22 05:31 Dextrose IV 100 mls/hr Q8H GRACIELA Administration Levothyroxine Sodi um 100 mcg 04/16/22 09:00 04/18/22 08:25 Levothyroxine 10 0 Mcg Tablet PO 100 mcg DAILY GRACIELA Administration Losartan Potassium 50 mg 04/16/22 09:00 04/18/22 08:25 Losartan 50 Mg T ablet PO 50 mg DAILY GRACIELA Administration Non-Formulary Medi cation 10 mg 04/16/22 21:00 04/17/22 23:00 Amitriptyline PO Not Given BEDTIME GRACIELA Non-Formulary Medi cation 10 mg 04/16/22 09:00 04/18/22 08:31 Solifenacin PO Not Given DAILY GRACIELA Pantoprazole Sodiu m 40 mg 04/16/22 09:00 04/18/22 08:[address] 40 Mg Tablet PO 40 mg DAILY GRACIELA Administration Polyethylene Glyco l 17 gm 04/16/22 09:00 04/18/22 08:31 Polyethylene Gly col 3350 Pkt 17 Gm PO Not Given DAILY GRACIELA Pregabalin 75 mg 04/16/22 09:00 04/18/22 08:25 Pregabalin 75 Mg Capsule PO 75 mg TID GRACIELA Administration Tramadol HCl 50 mg 04/16/22 03:59 04/16/22 14:09 Tramadol 50 Mg T ablet PO 50 mg Q6H PRN Administration MODERATE PAIN Vitals/I&O/Wt Last Vital Signs Temp 98.6 F 04/19/22 15:09 Pulse 98 04/19/22 15:09 Resp 18 04/19/22 15:09 BP 111/66 04/19/22 15:09 Pulse Ox 92 04/19/22 15:09 04/19/22 04/19/22 04/19/22 06:59 14:59 22:59 Intake Total 358.333 / 2038.333 480 / 480 Balance 358.333 / 488.333 480 / 480 Physical Exam Const: COMMON NORMALS: patient oriented x3 HENMT: COMMON NORMALS: normocephalic and atraumatic HEAD & SCALP: normocephalic and atraumatic Resp: COMMON NORMALS: clear to auscultation bilaterally EFFORT & INSPECTION: Yes symmetric chest movement AUSCULTATION: clear to auscultation bilaterally Cardio: COMMON NORMALS: regular rate, regular rhythm, S1 normal heart sound present, S2 normal heart sound present, No gallops present (Cardio), No murmurs present (Cardio), No rub (Cardio) and Peripheral pulses 2+ throughout RATE: regular rate RHYTHM: regular rhythm HEART SOUNDS: S1 normal heart sound present and S2 normal heart sound present PERIPHERAL PULSES: Peripheral pulses 2+ throughout GI: COMMON NORMALS: Normal to inspection, nondistended, normoactive bowel sounds present, Soft to palpation, non-tender, No hepatosplenomegaly present and no masses AUSCULTATION: Yes normoactive bowel sounds PALPATION: Yes Soft to palpation and Yes No hepatosplenomegaly present RECTAL EXAM: deferred Extremity: COMMON NORMALS: no clubbing, cyanosis or edema and no pedal edema Neuro: COMMON NORMALS: patient oriented x3 Urinary Catheter Management: Zimmerman: Cath Placed During This Visit: yes Reason for Continuing Indwelling Catheter: Accurate Measurement of Urinary Output in Critically Ill Patients Urinary Catheter Date of Insertion: 04/16/22 Urinary Catheter Time of Insertion: 02:10 Data : 04/18/22 08:53 04/18/22 08:53 Micro: Microbiology 04/17/22 12:45 Anaerobic Culture - Preliminary Tissue 04/17/22 12:45 Gram Stain - Final Tissue Tissue Culture - Preliminary 04/16/22 14:15 Gram Stain - Final Hip - #1 Wound Culture - Final A&P Assessment and plan (1) Draining cutaneous sinus tract: Status: Acute (2) History of right hip replacement: Status: Acute (3) 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 Pain control Bowel regimen PT evaluation Orthopedic is primary on this patient. Infectious disease was consulted by prior provider for possible long-term IV antibiotics, due to presence of Chronic draining sinus tract, with possible underlying osteo-/prosthetic joint infection. For now it has been agreed upon that she does not need any long-term IV antibiotics. We will discharge her on p.o. ciprofloxacin for 2 weeks. Status: Acute (4) Anemia: Acute postop blood loss anemia: S/p 3 units PRBC transfusion. Currently H&H is stable Status: Acute Plan Patient with past medical history as noted above in HPI, presented currently with a distal femur fracture after mechanical fall. Infectious disease service consulted for the draining sinus over her right upper thigh. Given the chronicity of this draining sinus tract, chief concern is for any underlying osteomyelitis and/or prosthetic joint infection. Inflammatory markers , which may be helpful as surrogate markers of PJI, are minimally elevated with CRP 9.6 and ESR at 51. Both of these are also acute inflammatory markers and may be currently elevated as a result of her recent stressor and fracture. No evidence of osteomyelitis of the femur on CT imaging, hip prosthesis appears to be well aligned. With CT findings, only minimally elevated markers and patient's history of extensive work-up already in progress at [place] (records still pending), there is lower suspicion of an acute infective process at the hip at this present time. Would not recommend any empiric prolonged antibiotic regimen for PJI hip/osteomyelitis at this time based on no compelling evidence of an ongoing infective process and lack of microbiological data. To make definitive diagnosis, patient will need more proximal bone biopsy and also possibly aspiration of the right hip to get microbiological evidence of infection and treat accordingly. The latter will require coordinated care among multiple specialties including orthopedics, infectious disease, Intervention radiology and solid waste division supervisor (h/o multiple complications post op) and will be best achieved at a higher center where she is already established and being followed. CT findings of gas bubble most likely represent the open sinus tract, there are no surrounding signs of cellulitis. Etiology of persistent sinus remains unclear, perhaps may be related to pressure injury, Encourage her to get established with wound care and continue outpatient care for the same. Attestations Medical Necessity Statement*: Patient is to be in hospital for management of periprosthetic fracture s/p ORIF, awaiting SNF placement. 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
[2022-04-19] MEDS: acetaminophen 325 mg Tablet 650 MG PO (16:48)
[2022-04-19] MEDS: nystatin powder 15 gm Btl 1 APPLIC TOPICAL (17:56)
--- NOTE | 2022-04-19 19:25 | PM.PN ---
Subjective Subjective: Patient has transferred from ICU back to the floor. She is awaiting skilled facility placement. Medications: Reviewed: Yes Medication Review Details: Generic Name Dose Route Start Last Admin Trade Name Natasha PRSusan Reason Stop Dose Admin Bupropion HCl 150 mg 04/16/22 09:00 04/18/22 08:24 Bupropion Sr (12 Hr) 150 Mg Tablet PO 150 mg BID GRACIELA Administration Ciprofloxacin HCl 500 mg 04/16/22 09:00 04/18/22 08:27 Ciprofloxacin 50 0 Mg Tablet PO 500 mg BID@0900,2100 GRACIELA Administration Protocol Enoxaparin Sodium 40 mg 04/16/22 04:00 04/18/22 05:31 Enoxaparin 40 Mg /0.4 Ml Syringe SUBCUT 40 mg Q24H GRACIELA Administration Fluoxetine HCl 20 mg 04/16/22 09:00 04/18/22 08:25 Fluoxetine 20 Mg Capsule PO 20 mg DAILY GRACIELA Administration Sodium Chloride 1,000 mls @ 50 ml s/hr 04/16/22 04:00 04/18/22 08:30 Sodium Chloride 0.9% IV 50 mls/hr .Q20H GRACIELA Administration Cefazolin Sodium 2 ,000 mg/ 50 mls @ 100 mls/ hr 04/17/22 22:00 04/18/22 05:31 Dextrose IV 100 mls/hr Q8H GRACIELA Administration Levothyroxine Sodi um 100 mcg 04/16/22 09:00 04/18/22 08:25 Levothyroxine 10 0 Mcg Tablet PO 100 mcg DAILY GRACIELA Administration Losartan Potassium 50 mg 04/16/22 09:00 04/18/22 08:25 Losartan 50 Mg T ablet PO 50 mg DAILY GRACIELA Administration Non-Formulary Medi cation 10 mg 04/16/22 21:00 04/17/22 23:00 Amitriptyline PO Not Given BEDTIME GRACIELA Non-Formulary Medi cation 10 mg 04/16/22 09:00 04/18/22 08:31 Solifenacin PO Not Given DAILY GRACIELA Pantoprazole Sodiu m 40 mg 04/16/22 09:00 04/18/22 08:[address] 40 Mg Tablet PO 40 mg DAILY GRACIELA Administration Polyethylene Glyco l 17 gm 04/16/22 09:00 04/18/22 08:31 Polyethylene Gly col 3350 Pkt 17 Gm PO Not Given DAILY GRACIELA Pregabalin 75 mg 04/16/22 09:00 04/18/22 08:25 Pregabalin 75 Mg Capsule PO 75 mg TID GRACIELA Administration Tramadol HCl 50 mg 04/16/22 03:59 04/16/22 14:09 Tramadol 50 Mg T ablet PO 50 mg Q6H PRN Administration MODERATE PAIN Vitals/I&O/Wt Last Vital Signs Temp 98.6 F 04/19/22 15:09 Pulse 98 04/19/22 15:09 Resp 18 04/19/22 15:09 BP 111/66 04/19/22 15:09 Pulse Ox 92 04/19/22 15:09 04/19/22 04/19/22 04/19/22 06:59 14:59 22:59 Intake Total 358.333 / 2038.333 480 / 480 50 / 530 Output Total 1725 / 1725 Balance 358.333 / 488.333 480 / 480 -1675 / -1195 Weight last 48 hrs Weight 296 lb Physical Exam Const: COMMON NORMALS: no acute distress, patient oriented x3 and alert GENERAL APPEARANCE: cooperative and comfortable NUTRITIONAL APPEARANCE: obese ORIENTATION/CONSCIOUSNESS: Yes awake HENMT: COMMON NORMALS: normocephalic and atraumatic HEAD & SCALP: normocephalic and atraumatic Eye: GENERAL EYE: appearance normal, both eyes and all related structures Chest: COMMONS NORMALS: normal inspection of the chest Resp: COMMON NORMALS: normal respiratory effort EFFORT & INSPECTION: Yes able to speak in complete sentences and Yes symmetric chest movement Extremity: NARRATIVE EXTREMITY EXAM: No evidence of DVT. Dressing remains dry and intact. Neuro: COMMON NORMALS: patient oriented x3 SENSORIUM/ORIENTATION: Yes alert Psych: COMMON NORMALS: mental status grossly normal APPEARANCE: Yes grossly normal ATTITUDE: Yes calm and Yes engaged ATTENTION/CONCENTRATION: Yes attention grossly intact Skin: COMMON NORMALS: no rashes or lesions noted GENERAL SKIN EXAM: no rashes or lesions noted Urinary Catheter Management: Zimmerman: Cath Placed During This Visit: yes Reason for Continuing Indwelling Catheter: Required Immobilization for Trauma or Surgery or Anesthesia Urinary Catheter Date of Insertion: 04/16/22 Urinary Catheter Time of Insertion: 02:10 Data : 04/18/22 08:53 04/18/22 08:53 Micro: Microbiology 04/17/22 12:45 Anaerobic Culture - Preliminary Tissue 04/17/22 12:45 Gram Stain - Final Tissue Tissue Culture - Preliminary 04/16/22 14:15 Gram Stain - Final Hip - #1 Wound Culture - Final A&P Assessment and plan (1) 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 H&H is remaining stable as well. She is working with physical therapy. She is to remain nonweightbearing on her right lower extremity. She has a Trini lift at home, in case she falls, but in general, she is doing transfers. She will require long-term at the time of discharge for ongoing care. Status: Acute (2) History of bilateral knee replacement: Status: Acute (3) History of right hip replacement: With subsequent infectious debridement x3. She is under ongoing care at [place] and will need to return there for definitive treatment. 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
[2022-04-19] MEDS: amitriptyline 25 mg Tablet 12.5 MG PO (21:47)
[2022-04-19] MEDS: ceFAZolin 2,000 MG in sodium chloride 0.9% (plus) 50 ML 100 MG IV (21:52)
[2022-04-20] VITALS (7 sets, daily range): BP systolic 102–134; BP diastolic 55–71; PULSE 55–97; RESP 14–16; TEMP 36.7–37.1; O2SAT 89–98
[2022-04-20] MEDS: TRAMadol 50 mg Tablet PO ×3 (00:06→14:28)
[2022-04-20] MEDS: sodium chloride 0.9% 1,000 ML 50 ML IV (04:23)
[2022-04-20] MEDS: enoxaparin 40 mg/0.4 mL Syringe SUBCUT (05:02)
[2022-04-20] MEDS: ceFAZolin 2,000 MG in sodium chloride 0.9% (plus) 50 ML 100 MG IV (05:02)
[2022-04-20 07:01] LABS: Basophils # 0.1 10^3/uL (0.0-0.1); Basophils % 0.6 %; Eosinophils # 0.1 10^3/uL (0.0-0.8); Eosinophils % 1.1 %; Hematocrit 26.5 % (37.0-47.0); Hemoglobin 8.1 g/dL (11.5-15.3); Lymphocytes # 1.8 10^3/uL (0.8-4.8); Lymphocytes % 20.2 %; Mean Corpuscular HGB Conc 30.6 g/dL (30.0-36.0); Mean Corpuscular Hemoglobin 28.4 pg (28.0-34.0); Mean Platelet Volume 10.2 fL (7.4-10.4); Monocytes # 1.3 10^3/uL (0.2-0.9); Monocytes % 14.5 %; Neutrophils # 5.58 10^3/uL (1.8-7.7); Nucleated Red Blood Cells % 0 %; Platelet Count 200 10^3/cmm (130-400); Red Blood Count 2.85 10^6/uL (4.1-5.3); Red Cell Distribution Width 14.8 % (12.1-15.1); White Blood Count 8.9 10^3/uL (4.0-10.0)
[2022-04-20 07:34] LABS: Anion Gap 10.3 (5-19); Blood Urea Nitrogen 12 mg/dL (8-23); Calcium 7.8 mg/dL (8.5-10.5); Carbon Dioxide 28 mmol/L (22-29); Chloride 93 mmol/L (98-107); Glomerular Filtration Rate 83.2 mL/min (90-130); Glucose 91 mg/dL (65-115); Osmolality Calculated 263 mOsm/kg (285-295); Potassium 4.3 mmol/L (3.5-5.1); Sodium 127 mmol/L (136-145)
[2022-04-20] MEDS: pregabalin 75 mg Capsule PO ×2 (08:46→14:28)
[2022-04-20] MEDS: losartan 50 mg Tablet PO (08:46)
[2022-04-20] MEDS: ciprofloxacin 500 mg Tablet PO (08:46)
[2022-04-20] MEDS: pantoprazole DR 40 mg Tablet PO (08:46)
[2022-04-20] MEDS: levothyroxine 100 mcg Tablet PO (08:46)
[2022-04-20] MEDS: fluoxetine 20 mg Capsule PO (08:46)
[2022-04-20] MEDS: buPROPion SR (12 HR) 150 mg Tablet PO (08:46)
[2022-04-20] MEDS: polyethylene glycol 3350 Pkt 17 gm PO (08:46)
[2022-04-20] MEDS: nystatin powder 15 gm Btl 1 APPLIC TOPICAL (08:55)
--- NOTE | 2022-04-20 13:41 | P.PN_ITS ---
Subjective Subjective: Patient is seen in her room today. Her leg appears without swelling or significant ecchymosis. Medications: Reviewed: Yes Medication Review Details: Generic Name Dose Route Start Last Admin Trade Name Natasha PRN Reason Stop Dose Admin Bupropion HCl 150 mg 04/16/22 09:00 04/18/22 08:24 Bupropion Sr (12 Hr) 150 Mg Tablet PO 150 mg BID GRACIELA Administration Ciprofloxacin HCl 500 mg 04/16/22 09:00 04/18/22 08:27 Ciprofloxacin 50 0 Mg Tablet PO 500 mg BID@0900,2100 GRACIELA Administration Protocol Enoxaparin Sodium 40 mg 04/16/22 04:00 04/18/22 05:31 Enoxaparin 40 Mg /0.4 Ml Syringe SUBCUT 40 mg Q24H GRACIELA Administration Fluoxetine HCl 20 mg 04/16/22 09:00 04/18/22 08:25 Fluoxetine 20 Mg Capsule PO 20 mg DAILY GRACIELA Administration Sodium Chloride 1,000 mls @ 50 ml s/hr 04/16/22 04:00 04/18/22 08:30 Sodium Chloride 0.9% IV 50 mls/hr .Q20H GRACIELA Administration Cefazolin Sodium 2 ,000 mg/ 50 mls @ 100 mls/ hr 04/17/22 22:00 04/18/22 05:31 Dextrose IV 100 mls/hr Q8H GRACIELA Administration Levothyroxine Sodi um 100 mcg 04/16/22 09:00 04/18/22 08:25 Levothyroxine 10 0 Mcg Tablet PO 100 mcg DAILY GRACIELA Administration Losartan Potassium 50 mg 04/16/22 09:00 04/18/22 08:25 Losartan 50 Mg T ablet PO 50 mg DAILY GRACIELA Administration Non-Formulary Medi cation 10 mg 04/16/22 21:00 04/17/22 23:00 Amitriptyline PO Not Given BEDTIME GRACIELA Non-Formulary Medi cation 10 mg 04/16/22 09:00 04/18/22 08:31 Solifenacin PO Not Given DAILY GRACIELA Pantoprazole Sodiu m 40 mg 04/16/22 09:00 04/18/22 08:[address] 40 Mg Tablet PO 40 mg DAILY GRACIELA Administration Polyethylene Glyco l 17 gm 04/16/22 09:00 04/18/22 08:31 Polyethylene Gly col 3350 Pkt 17 Gm PO Not Given DAILY GRACIELA Pregabalin 75 mg 04/16/22 09:00 04/18/22 08:25 Pregabalin 75 Mg Capsule PO 75 mg TID GRACIELA Administration Tramadol HCl 50 mg 04/16/22 03:59 04/16/22 14:09 Tramadol 50 Mg T ablet PO 50 mg Q6H PRN Administration MODERATE PAIN Vitals/I&O/Wt Last Vital Signs Temp 98.3 F 04/20/22 11:50 Pulse 87 04/20/22 11:50 Resp 16 04/20/22 11:50 BP 118/71 04/20/22 11:50 Pulse Ox 97 04/20/22 11:50 04/19/22 04/20/22 04/20/22 22:59 06:59 14:59 Intake Total 520 / 1000 1016.667 / 2015.667 1080 / 1080 Output Total 1954 / 1954 800 / 2755 550 / 550 Balance -1435 / -955 216.667 / -738.333 530 / 530 Weight last 48 hrs Weight 296 lb Physical Exam Const: COMMON NORMALS: no acute distress, patient oriented x3 and alert GENERAL APPEARANCE: cooperative and comfortable NUTRITIONAL APPEARANCE: obese ORIENTATION/CONSCIOUSNESS: Yes awake HENMT: COMMON NORMALS: normocephalic and atraumatic HEAD & SCALP: normocephalic and atraumatic Eye: GENERAL EYE: appearance normal, both eyes and all related structures Chest: COMMONS NORMALS: normal inspection of the chest Resp: COMMON NORMALS: normal respiratory effort EFFORT & INSPECTION: Yes able to speak in complete sentences and Yes symmetric chest movement Extremity: NARRATIVE EXTREMITY EXAM: No evidence of DVT. Dressing remains dry and intact. RIGHT LOWER EXTREMITY: Yes upper leg (Dressing is removed down to the Dermabond prineo) Right upper leg: Yes inspection (No significant swelling or ecchymosis), Yes palpation (Minimal tenderness to palpation.) and Yes neurovascular exam (No evidence of DVT.) Neuro: COMMON NORMALS: patient oriented x3 SENSORIUM/ORIENTATION: Yes alert Psych: COMMON NORMALS: mental status grossly normal APPEARANCE: Yes grossly normal ATTITUDE: Yes calm and Yes engaged ATTENTION/CONCENTRATION: Yes attention grossly intact Skin: COMMON NORMALS: no rashes or lesions noted GENERAL SKIN EXAM: no rashes or lesions noted Urinary Catheter Management: Zimmerman: Cath Placed During This Visit: yes Reason for Continuing Indwelling Catheter: Required Immobilization for Trauma or Surgery or Anesthesia Urinary Catheter Date of Insertion: 04/16/22 Urinary Catheter Time of Insertion: 02:10 Data : 04/20/22 06:37 04/20/22 06:37 Micro: Microbiology 04/17/22 12:45 Gram Stain - Final Tissue Tissue Culture - Final 04/17/22 12:45 Anaerobic Culture - Preliminary Tissue 04/16/22 14:15 Gram Stain - Final Hip - #1 Wound Culture - Final A&P Assessment and plan (1) 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 She has been accepted and transfer is planned for today. She is to remain nonweightbearing on her right lower extremity. Gentle range of motion of the knee is appropriate. She is to be in her knee immobilizer anytime she is up in a chair or out of her bed. She has a Trini lift at home, in case she falls, but in general, she is doing transfers. She will require half-way at the time of discharge for ongoing care. Status: Acute (2) History of bilateral knee replacement: Status: Acute (3) History of right hip replacement: With subsequent infectious debridement x3. She is under ongoing care at [facility] and will need to return there for definitive treatment. Status: Acute (4) Draining cutaneous sinus tract: Chronic since 2019 Status: Acute Attestations Medical Necessity Statement*: Ongoing therapy and nonweightbearing status. Patient ready for transfer. 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
--- NOTE | 2022-04-20 15:57 | PC.OT ---
OT TREATMENT HELD TODAY DUE TO SCHEDULED PATIENT D/C
--- NOTE | 2022-04-21 13:11 | P.DS_ITS ---
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 right periprosthetic distal femur fracture with severe comminution. patient also has history of chronic draining sinus over her right upper thigh, infectious disease was consulted for possibility of underlying osteo- PJI, based on the work-up during the hospital stay, it was agreed upon that there is no need for long-term I.V antibiotics, she was discharged on p.o. ciprofloxacin twice daily for 14 days, and has been asked to continue to follow at [place], where she has been receiving her treatment, for continued care. Patient responded well to above medical management and is being discharged in stable condition to SNF. Physical Exam Const: COMMON NORMALS: patient oriented x3 HENMT: COMMON NORMALS: normocephalic and atraumatic HEAD & SCALP: normocephalic and atraumatic Resp: COMMON NORMALS: clear to auscultation bilaterally EFFORT & INSPECTION: Yes symmetric chest movement AUSCULTATION: clear to auscultation bilaterally Cardio: COMMON NORMALS: regular rate, regular rhythm, S1 normal heart sound present, S2 normal heart sound present, No gallops present (Cardio), No murmurs present (Cardio), No rub (Cardio) and Peripheral pulses 2+ throughout RATE: regular rate RHYTHM: regular rhythm HEART SOUNDS: S1 normal heart sound present and S2 normal heart sound present PERIPHERAL PULSES: Peripheral pulses 2+ throughout GI: COMMON NORMALS: Normal to inspection, nondistended, normoactive bowel sounds present, Soft to palpation, non-tender, No hepatosplenomegaly present and no masses AUSCULTATION: Yes normoactive bowel sounds PALPATION: Yes Soft to palpation and Yes No hepatosplenomegaly present RECTAL EXAM: deferred Extremity: COMMON NORMALS: no clubbing, cyanosis or edema and no pedal edema Neuro: COMMON NORMALS: patient oriented x3 Urinary Catheter Management: Zimmerman: Cath Placed During This Visit: yes Reason for Continuing Indwelling Catheter: Required Immobilization for Trauma or Surgery or Anesthesia Urinary Catheter Date of Insertion: 04/16/22 Urinary Catheter Time of Insertion: 02:10 Discharge Data Studies Completed and Pending Completed Studies During Hospitalization Category Date Time Status CT femur RT w con [id number] Routine Cat Scan 04/16/22 03:48 Completed XR femur RT 1V [id number] Routine Exams 04/17/22 Completed XR femur RT min 2V* [id number] Routine Exams 04/17/22 16:00 Completed XR femur RT min 2V* [id number] Stat Exams 04/15/22 23:02 Completed XR hip RT 2-3V wo/w pel* [id number] Stat Exams 04/15/22 22:20 Completed XR knee RT 3V* [id number] Stat Exams 04/15/22 22:20 Completed Pending at discharge Category Date Time Status Anaerobic Culture Routine Lab 04/17/22 12:45 Results Radiology Impressions Hip/Pelvis X-Ray 04/15/22 22:20 IMPRESSION: Right hip arthroplasty changes seen in place. Knee X-Ray 04/15/22 22:20 IMPRESSION: 1. Distal femoral metadiaphyseal comminuted impacted fracture with overlap of the fracture fragments. 2. Knee arthroplasty changes seen. Femur CT 04/16/22 03:48 IMPRESSION: 1. Gas bubbles in the lateral aspect of an oblique linear soft tissue density in the subcutaneous fat of the upper right thigh, with a sinus tract or infected scar not differentiated. No suggestion of femoral osteomyelitis in this area. Normal alignment of the right hip joint prosthesis. 2. Comminuted fracture of the distal femoral shaft again evident as described above; extension of 2 fracture lines into the distal femur including the area of the femoral prosthesis. Femur X-Ray 04/17/22 16:00 IMPRESSION: Near anatomic alignment of the comminuted fracture site in the distal femoral metaphysis status post internal fixation. No apparent surgical complications. Laboratory Results WBC 8.9 10^3/uL (4.0-10.0) 04/20/22 06:37 RBC 2.85 10^6/uL (4.1-5.3) L 04/20/22 06:37 Hgb 8.1 g/dL (11.5-15.3) L 04/20/22 06:37 Hct 26.5 % (37.0-47.0) L 04/20/22 06:37 MCV 93.0 fl (81-99) 04/20/22 06:37 MCH 28.4 pg (28.0-34.0) 04/20/22 06:37 MCHC 30.6 g/dL (30.0-36.0) 04/20/22 06:37 RDW 14.8 % (12.1-15.1) 04/20/22 06:37 Plt Count 200 10^3/cmm (130-400) 04/20/22 06:37 MPV 10.2 fL (7.4-10.4) 04/20/22 06:37 Neut % (Auto) 63.0 % 04/20/22 06:37 Lymph % (Auto) 20.2 % 04/20/22 06:37 [place] % (Auto) 14.5 % 04/20/22 06:37 Eos % (Auto) 1.1 % 04/20/22 06:37 Baso % (Auto) 0.6 % 04/20/22 06:37 Neut # (Auto) 5.58 10^3/uL (1.8-7.7) 04/20/22 06:37 Lymph # (Auto) 1.8 10^3/uL (0.8-4.8) 04/20/22 06:37 [place] # (Auto) 1.3 10^3/uL (0.2-0.9) H 04/20/22 06:37 Eos # (Auto) 0.1 10^3/uL (0.0-0.8) 04/20/22 06:37 Baso # (Auto) 0.1 10^3/uL (0.0-0.1) 04/20/22 06:37 Nucleated RBC % (auto) 0 % 04/20/22 06:37 Nucleated RBCs # 0.0 /100WBC 04/20/22 06:37 ESR 51 mm/hr (0-15) H 04/15/22 23:00 PT 14.10 SECONDS (12.1-14.9) 04/16/22 00:10 INR 1.06 (0.8-1.2) 04/16/22 00:10 APTT 29.3 SECONDS (23.9-36.7) 04/16/22 00:10 Sodium 127 mmol/L (136-145) L 04/20/22 06:37 Potassium 4.3 mmol/L (3.5-5.1) 04/20/22 06:37 Chloride 93 mmol/L (98-107) L 04/20/22 06:37 Carbon Dioxide 28 mmol/L (22-29) 04/20/22 06:37 Anion Gap 10.3 (5-19) 04/20/22 06:37 BUN 12 mg/dL (8-23) 04/20/22 06:37 Creatinine 0.7 mg/dL (0.5-0.9) 04/20/22 06:37 GFR Calculation 83.2 mL/min (90-130) L 04/20/22 06:37 Glucose 91 mg/dL (65-115) 04/20/22 06:37 Estimat Average Glucose 85 04/17/22 03:55 Hemoglobin A1c 4.6 % (4.0-6.0) 04/17/22 03:55 Calculated Osmolality 263 mOsm/kg (285-295) L 04/20/22 06:37 Calcium 7.8 mg/dL (8.5-10.5) L 04/20/22 06:37 Iron 25 ug/dL (37-145) L 04/16/22 19:09 Iron Cancelled 04/16/22 19:09 TIBC 244 mcg/dl 04/16/22 19:09 TIBC Cancelled 04/16/22 19:09 % Saturation 10.2 % (20-50) L 04/16/22 19:09 % Saturation Cancelled 04/16/22 19:09 Unsat Iron Binding 219 ug/dL (112-347) 04/16/22 19:09 Unsat Iron Binding Cancelled 04/16/22 19:09 Total Bilirubin 0.7 mg/dL (0.15-1.2) 04/18/22 08:53 AST 15 U/L (0-32) 04/18/22 08:53 ALT 8 U/L (0-33) 04/18/22 08:53 Alkaline Phosphatase 55 IU/L (35-105) 04/18/22 08:53 C-Reactive Protein 9.6 mg/L (0.0-4.9) H 04/15/22 23:00 Total Protein 5.6 g/dL (6.6-8.7) L 04/18/22 08:53 Albumin 2.8 g/dL (3.5-5.2) L 04/18/22 08:53 Globulin 2.8 g/dL (1.3-4.6) 04/18/22 08:53 Triglycerides 48 mg/dL (0-150) 04/17/22 03:55 Cholesterol 115 mg/dL (0-200) 04/17/22 03:55 LDL Cholesterol, Calc 65 mg/dL (50-129) 04/17/22 03:55 Total VLDL Cholesterol 10 mg/dL (0-30) 04/17/22 03:55 HDL Cholesterol 40 mg/dL (60-100) L 04/17/22 03:55 Cholesterol/HDL Ratio 2.88 mg/dL (0.0-4.40) 04/17/22 03:55 Vitamin B12 368 pg/mL (232-1245) 04/16/22 19:09 Folate 12.2 ng/mL (4.8-37.3) 04/16/22 19:09 Procalcitonin 0.07 ng/mL (0-0.5) 04/16/22 19:09 Procalcitonin Cancelled 04/16/22 19:09 TSH 0.69 uIU/mL (0.27-4.20) 04/16/22 19:09 Ur Random Sodium 116 mmol/L 04/18/22 00:45 Ur Random Potassium 33 mmol/L 04/18/22 00:45 Ur Random Chloride 137 mmol/L 04/18/22 00:45 SARS-CoV-2 Ag (Rapid) Negative (Negative) 04/19/22 11:48 Blood Type O Positive 04/17/22 07:54 Rho(D) Type Positive 04/17/22 07:54 Antibody Screen Negative 04/17/22 07:54 Crossmatch See Detail 04/17/22 07:54 Vitals Last Vital Signs Temp 98.3 F 04/20/22 15:49 Pulse 87 04/20/22 15:49 Resp 16 04/20/22 15:49 BP 118/71 04/20/22 15:49 Pulse Ox 97 04/20/22 15:49 Discharge Plan Discharge Patient Disposition: Home Condition: Stable Prescriptions: New enoxaparin 40 mg/0.4 mL Syringe 40 mg SUBCUT Q24H 14 Days Qty: 5.6 0RF Advair HFA 115-21 mcg/actuation HFA aerosol inhaler 2 inh inhalation BID Qty: 12 0RF ciprofloxacin HCl 500 mg Tablet 500 mg PO BID@0900,2100 14 Days Qty: 28 0RF tramadol 50 mg Tablet 50 mg PO Q4H PRN (Reason: Mild To Moderate Pain) 14 Days Qty: 30 0RF Continued fluoxetine [Prozac] 20 mg capsule 20 mg PO DAILY 0RF bupropion HCl [Wellbutrin SR] 150 mg Tablet Sustained-Release 12 Hr 300 mg PO DAILY Qty: 0 0RF amitriptyline 10 mg Tablet 10 mg PO BEDTIME Qty: 0 0RF Label Comments: May take this not certain, for sleep Rx Instructions: TAKE TWO TABLETS AT BEDTIME omeprazole 20 mg Capsule,Delayed Release(Dr/Ec) 40 mg PO DAILY 0RF polyethylene glycol 3350 [Miralax] 17 gram/dose Powder 17 g PO DAILY PRN (Reason: Constipation) 0RF diphenhydramine-acetaminophen [Tylenol PM Extra Strength] 25-500 mg Tablet 1 tab PO BEDTIME Qty: 0 0RF Rx Instructions: administer while awake solifenacin 10 mg tablet 10 mg PO DAILY 0RF pregabalin [Lyrica] 75 mg Capsule 225 mg PO DAILY 0RF levothyroxine [Levoxyl] 100 mcg Tablet 100 mcg PO DAILY Qty: 30 0RF losartan 50 mg tablet 50 mg PO DAILY Qty: 30 0RF Held Trelegy Ellipta 100-62.5-25 mcg Blister With Device 1 inh INHALATION DAILY PRN (Reason: Shortness Of Breath Or Wheezing) 0RF Hold Instructions: Resume on 05/08/22. Discharge Orders: Discharge Order (Routine); Ordered 04/20/22 Ordered By: Jase Spencer Referrals: Yimi Wagner [Referring] - Makenzie Ross MD [Physician] - (Please send xrays to Dr. Knight office in 3 weeks. ) Nirav Pelletier [Primary Care Provider] - Discharge Activity: Wheelchair as instructed and As per PT/OT instructions Patient Instructions: Ciprofloxacin (By mouth), Tramadol (By mouth), Enoxaparin (By injection), Fluticasone/Salmeterol (By breathing), Opioid Safety Activity Restrictions/Additional Instructions: Nonweightbearing right lower extremity. Wear knee immobilizer when out of bed. Keep lateral thigh wound covered. Discharge Attestations Time Spent in Discharge Care*: greater than 30 min Specific Discharge Activities: educating patient, educating and/or supporting family/caregiver, discussing with pcp/other providers, discussing with case manager specialist/social workers/dc planners, documenting/other paperwork and evaluating patient/reviewing data Status at Discharge: Cognitive status at discharge: cognitively intact , Behavioral status at discharge: cooperative , Quality Metrics Clinical Quality Measures [ No reported AMI, CVA or VTE this stay] Coding Level of Care Code Acute [facility] DC note Diagnoses Periprosthetic fracture around internal prosthetic knee joint M97.8XXA; Z96.659 History of bilateral knee replacement Z96.653 History of right hip replacement Z96.641 Draining cutaneous sinus tract L98.8
== END 2022-04-20 15:45 | disposition skilled nursing facility (03) | DRG 481 ==
LOC: ER 23:28 → MEDSURG 04-16 00:08 → ICU 04-17 13:39 → MEDSURG 04-18 22:39
PROVIDERS: Anesthesiology; Specialist; Student in an Organized Health Care Education/Training Program; Admitting Provider Student in an Organized Health Care Education/Training Program; Emergency Provider Emergency Medicine; PCP Family Medicine; Visit Provider Internal Medicine
PROC: 0QSB04Z Reposition Right Lower Femur with Internal Fixation Device, Open Approach (ICD-10-PCS; principal; 2022-04-17 10:20)
DX: S72.401A Unspecified fracture of lower end of right femur, initial encounter for closed fracture (principal); D62 Acute posthemorrhagic anemia; M97.11XA Periprosthetic fracture around internal prosthetic right knee joint, initial encounter; Z68.41 Body mass index [BMI] 40.0-44.9, adult; E87.1 Hypo-osmolality and hyponatremia; W01.0XXA Fall on same level from slipping, tripping and stumbling without subsequent striking against object, initial encounter; E66.9 Obesity, unspecified; I10 Essential (primary) hypertension; E78.5 Hyperlipidemia, unspecified; M79.7 Fibromyalgia; J44.9 Chronic obstructive pulmonary disease, unspecified; F32.A Depression, unspecified; K21.9 Gastro-esophageal reflux disease without esophagitis; E03.9 Hypothyroidism, unspecified; M19.90 Unspecified osteoarthritis, unspecified site; Z96.653 Presence of artificial knee joint, bilateral; Z96.641 Presence of right artificial hip joint; Z87.891 Personal history of nicotine dependence; L98.8 Other specified disorders of the skin and subcutaneous tissue
CPT/HCPCS: 36415; 36430; 51702; 73502; 73551; 73552; 73562; 73701; 76000; 80048; 80053; 80061; 82436; 82607; 82746; 83036; 83540; 83550; 84133; 84145; 84300; 84443; 85025; 85610; 85651; 85730; 86140; 86850; 86900; 86920; 87070; 87075; 87176; 87205; 87426; 93005; 96372; 96374; 96376; 97110; 97163; 97166; 97530; 97535; 97760; 99285; C1713; J0690; J1100; J1650; J2250; J2370; J2405; J2704; J3010; J3370; J3490; J7030; J7050; L1832; P9016; P9041; Q9967

== ENCOUNTER → 2022-05-05 13:17 | Outpatient (BNVA) | payer OTHER, SELFPAY | PROVIDERS: PCP Family Medicine; Visit Provider Nurse Practitioner Family | DX: Z98.890 Other specified postprocedural states (principal); S72.409A Unspecified fracture of lower end of unspecified femur, initial encounter for closed fracture; X58.XXXA Exposure to other specified factors, initial encounter | CPT/HCPCS: 73560; 99024 ==

== ENCOUNTER → 2022-07-11 14:12 | Outpatient (BNVA) | payer SELFPAY | PROVIDERS: PCP Family Medicine; Visit Provider Specialist | DX: M97.8XXA Periprosthetic fracture around other internal prosthetic joint, initial encounter (principal); Z96.659 Presence of unspecified artificial knee joint; S72.461 Displaced supracondylar fracture with intracondylar extension of lower end of right femur; L98.8 Other specified disorders of the skin and subcutaneous tissue; R53.1 Weakness; X58.XXXD Exposure to other specified factors, subsequent encounter; Z98.890 Other specified postprocedural states | CPT/HCPCS: 73552 ==

== ENCOUNTER 2022-08-05 09:29 | Emergency (ER) | payer OTHER, SELFPAY ==
[2022-08-05 09:30] VITALS: BP 177/102; PULSE 105; RESP 16; O2SAT 97
--- NOTE | 2022-08-05 09:32 | XR_ITS ---
WS: [id number] Exam: XR chest 1V portable [id number] Date/Time of Exam: 08/05/2022 9:47 AM Reason For Exam: cehst pain Comparison 11/28/2019. The lungs are clear and fully expanded. Cardiomediastinal silhouette appears normal. Fusion hardware in the mid thoracic and lower cervical spine. Chronic eventration of the right diaphragm. Monitoring leads superimpose the chest. Bony elements are intact. XR/XR chest 1V portable [id number] IMPRESSION: 1. No acute cardiopulmonary finding. No change.
--- NOTE | 2022-08-05 09:33 | ECG_ITS ---
[facility] Test Date: 2022-08-05 Pat Name: Scarlet Tong Department: Room: Gender: Female F[employer]anger: : 1955 Requested By: Chung Knox Order Number: [id number] Marciano MD: Gay Manley M.D. Measurements Intervals [place] Rate: 103 P: 76 MT: 168 QRS: -17 QRSD: 114 T: 91 QT: 335 QTc: 440 Interpretive Statements SINUS TACHYCARDIA LEFT VENTRICULAR HYPERTROPHY AND ST-T CHANGE [VOLTAGE CRITERIA PLUS ST/T ABNORMALITY] Compared to ECG 04/17/2022 07:37:54 Left ventricular hypertrophy now present ST (T wave) deviation now present Sinus rhythm no longer present T-wave abnormality no longer present Electronically Signed On 08-05-2022 10:42:30 CDT by Gay Manley M.D. [email or web address]
[2022-08-05 09:36] VITALS: BP 177/102; PULSE 107; RESP 18; TEMP 36.6; O2SAT 97; BMI 36.3
[2022-08-05 09:49] LABS: Basophils % 0.2 %; Eosinophils % 0.2 %; Hematocrit 40.9 % (37.0-47.0); Hemoglobin 12.8 g/dL (11.5-15.3); Lymphocytes # 0.9 10^3/uL (0.8-4.8); Lymphocytes % 16.2 %; Mean Corpuscular HGB Conc 31.3 g/dL (30.0-36.0); Mean Corpuscular Hemoglobin 26.7 pg (28.0-34.0); Mean Corpuscular Volume 85.4 fl (81-99); Monocytes # 0.4 10^3/uL (0.2-0.9); Monocytes % 6.4 %; Neutrophils # 4.17 10^3/uL (1.8-7.7); Neutrophils % 76.8 %; Nucleated Red Blood Cells % 0 %; Platelet Count 295 10^3/cmm (130-400); Red Blood Count 4.79 10^6/uL (4.1-5.3); Red Cell Distribution Width 15.3 % (12.1-15.1); White Blood Count 5.4 10^3/uL (4.0-10.0)
--- NOTE | 2022-08-05 09:52 | W.ED.CHESTPA ---
HPI - Chest Pain General: Chief Complaint: Chest Pain Stated Complaint: chest pain Time Seen by Provider: 08/05/22 09:32 Source: patient Mode of arrival: ambulatory History of Present Illness: 66-year-old female presents emergency room with complaint of chest pain that began yesterday radiates into her back. She has no history of coronary artery disease she has not noticed anything that makes it better or worse. She she received nitro aspirin and Zofran in route with no relief of discomfort. She still nauseous after arrival. She has a history of COPD and is on chronic oxygen although she not been using it lately she was advised to use 2 to 3 L/min and is on 2 L/min now by nasal cannula. She has had a little bit of a nonproductive cough lately she uses albuterol nebs at home no fever. No hemoptysis. MD complaint: chest pain Onset (ago): day(s) (1) Timing of current episode: constant Prior episodes: Yes Onset: during rest Pain location: left chest Severity: mild Quality: sharp Relieving factors: nothing Exacerbating factors: nothing Associated symptoms: Deny abdominal pain, diaphoresis, dyspnea, fever(s), leg edema, nausea, palpitations, sense of impending doom, syncope or vomiting Treatment prior to arrival: none Risk Factors: Coronary artery disease risk factors: none Thoracic aortic dissection risk factors: none Review of Systems Const: Denies: fever(s), chills, fatigue, malaise or diaphoresis ENMT: Denies: throat pain, ear or mastoid pain, nasal discharge or nasal congestion Card: Denies: palpitations or syncope Resp: Denies: dyspnea GI: Denies: abdominal pain, nausea or vomiting : Denies: flank pain, difficulty voiding, dysuria, urinary frequency or urinary urgency Skin/Breast: Denies: rash or pruritus PFSH ED PFSH: Medical History Anemia COPD (chronic obstructive pulmonary disease) Depression 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 Hypertension Hyponatremia Hypothyroidism Osteoarthritis Overactive bladder Periprosthetic fracture around internal prosthetic knee joint Surgical History History of back surgery History of bilateral knee replacement History of History of hysterectomy History of right hip replacement History of tonsillectomy Hx of cervical spine surgery Family History Other Hypertension Social History Smoking and tobacco status: former smoker Alcohol intake: current Alcohol intake frequency: holidays/special occasions only Household members: spouse Marital status: Female Reproductive History: Para: 2 Physical Exam Const: COMMON NORMALS: no acute distress GENERAL APPEARANCE: cooperative and comfortable ORIENTATION/CONSCIOUSNESS: Yes awake, Yes oriented to person, Yes oriented to place and Yes oriented to time HENMT: COMMON NORMALS: normocephalic, atraumatic, hearing grossly normal bilaterally, external ears normal, EAC's normal, TM's normal bilaterally, Normal nasal mucous membranes and turbinates present, moist oral mucous membranes and oropharynx normal HEAD & SCALP: normocephalic and atraumatic NOSE: Normal nasal mucous membranes and turbinates present EXTERNAL EAR: Yes external ears normal EXTERNAL AUDITORY CANAL: EAC's normal TYMPANIC MEMBRANE: TM's normal bilaterally Eye: COMMON NORMALS: Equal, round and reactive pupils present, EOMs intact bilaterally, conjunctivae normal and no scleral icterus CONJUNCTIVA: Yes conjunctivae normal PUPIL: Yes Equal, round and reactive pupils present Neck/C-Spine: COMMON NORMALS: full ROM, no lymphadenopathy, supple and no JVD Lymph: LYMPHATIC: no lymphadenopathy noted and no lymphedema noted Resp: COMMON NORMALS: normal respiratory effort, No retractions, No use of accessory muscles and clear to auscultation bilaterally AUSCULTATION: clear to auscultation bilaterally Cardio: COMMON NORMALS: no JVD, regular rate, regular rhythm and No murmurs present (Cardio) RATE: regular rate RHYTHM: regular rhythm GI: COMMON NORMALS: Soft to palpation and No hepatosplenomegaly present AUSCULTATION: Yes normoactive bowel sounds PALPATION: Yes Soft to palpation, No Tenderness to palpation present (GI), No Guarding due to palpation present (GI) and Yes No hepatosplenomegaly present Extremity: COMMON NORMALS: normal to inspection, capillary refill normal, no clubbing, cyanosis or edema, no calf tenderness and no pedal edema Neuro: SENSORIUM/ORIENTATION: Yes oriented to person, Yes oriented to place and Yes oriented to time Skin: COMMON NORMALS: no rashes or lesions noted GENERAL SKIN EXAM: no rashes or lesions noted Course Vital Signs: Vital signs: Vital Signs Temperature 98 F 08/05/22 09:36 Pulse Rate 99 08/05/22 11:25 Respiratory Rate 15 08/05/22 11:25 Blood Pressure 176/134 08/05/22 11:25 Pulse Oximetry 99 08/05/22 11:25 Oxygen Delivery Me thod 08/05/22 11:25 Oxygen Flow Rate 2 08/05/22 11:25 MDM - Chest Pain Medical Decision Making EKG does not show any acute changes. She is in a mild sinus tachycardia which I believe is due to her COPD exacerbation. Cardiac enzymes negative White count is normal chest pain relieved with pain medication given. She been having symptoms for over 12 hours now and her cardiac enzymes and EKG are still unremarkable discharge patient home steroid taper doxycycline aggressive pulmonary toilet with albuterol follow-up with her primary care doctor. If she has worsening symptoms return to emergency room. Medical Records I reviewed the patient's medical records. Lab Data I reviewed the patient's lab results. : 08/05/22 09:40 08/05/22 09:40 Radiology Impressions Chest X-Ray 08/05/22 09:32 IMPRESSION: 1. No acute cardiopulmonary finding. No change. Laboratory Results WBC 5.4 10^3/uL (4.0-10.0) 08/05/22 09:40 RBC 4.79 10^6/uL (4.1-5.3) 08/05/22 09:40 Hgb 12.8 g/dL (11.5-15.3) 08/05/22 09:40 Hct 40.9 % (37.0-47.0) 08/05/22 09:40 MCV 85.4 fl (81-99) 08/05/22 09:40 MCH 26.7 pg (28.0-34.0) L 08/05/22 09:40 MCHC 31.3 g/dL (30.0-36.0) 08/05/22 09:40 RDW 15.3 % (12.1-15.1) H 08/05/22 09:40 Plt Count 295 10^3/cmm (130-400) 08/05/22 09:40 MPV 10.0 fL (7.4-10.4) 08/05/22 09:40 Neut % (Auto) 76.8 % 08/05/22 09:40 Lymph % (Auto) 16.2 % 08/05/22 09:40 [place] % (Auto) 6.4 % 08/05/22 09:40 Eos % (Auto) 0.2 % 08/05/22 09:40 Baso % (Auto) 0.2 % 08/05/22 09:40 Neut # (Auto) 4.17 10^3/uL (1.8-7.7) 08/05/22 09:40 Lymph # (Auto) 0.9 10^3/uL (0.8-4.8) 08/05/22 09:40 [place] # (Auto) 0.4 10^3/uL (0.2-0.9) 08/05/22 09:40 Eos # (Auto) 0.0 10^3/uL (0.0-0.8) 08/05/22 09:40 Baso # (Auto) 0.0 10^3/uL (0.0-0.1) 08/05/22 09:40 Nucleated RBC % (auto) 0 % 08/05/22 09:40 Nucleated RBCs # 0.0 /100WBC 08/05/22 09:40 Sodium 132 mmol/L (136-145) L 08/05/22 09:40 Potassium 3.8 mmol/L (3.5-5.1) 08/05/22 09:40 Chloride 92 mmol/L (98-107) L 08/05/22 09:40 Carbon Dioxide 30 mmol/L (22-29) H 08/05/22 09:40 Anion Gap 13.8 (5-19) 08/05/22 09:40 BUN 8 mg/dL (8-23) 08/05/22 09:40 Creatinine 0.7 mg/dL (0.5-0.9) 08/05/22 09:40 GFR Calculation 83.2 mL/min (90-130) L 08/05/22 09:40 Glucose 134 mg/dL (65-115) H 08/05/22 09:40 Calculated Osmolality 274 mOsm/kg (285-295) L 08/05/22 09:40 Calcium 9.4 mg/dL (8.5-10.5) 08/05/22 09:40 Total Bilirubin 0.4 mg/dL (0.15-1.2) 08/05/22 09:40 AST 11 U/L (0-32) 08/05/22 09:40 ALT 11 U/L (0-33) 08/05/22 09:40 Alkaline Phosphatase 88 U/L (35-105) 08/05/22 09:40 Troponin T Baseline 53 ng/L (0-10) H 08/05/22 09:40 Troponin T 120 Minute 51.25 ng/L (0-10) H 08/05/22 11:32 Delta Troponin T -1.75 ABS# (0-10) L 08/05/22 11:32 Total Protein 6.9 g/dL (6.6-8.7) 08/05/22 09:40 Albumin 3.5 g/dL (3.5-5.2) 08/05/22 09:40 Globulin 3.4 g/dL (1.3-4.6) 08/05/22 09:40 Discharge Plan Discharge Patient Disposition: Home Clinical Impression: Atypical chest pain, Acute exacerbation of chronic obstructive pulmonary disease Condition: Stable Prescriptions: New doxycycline hyclate 100 mg capsule 100 mg PO BID 10 Days Qty: 20 0RF prednisone 20 mg tablet 20 mg PO TID Qty: 15 0RF Rx Instructions: 1 p.o. 3 times daily x3 days, 1 p.o. twice daily x2 days, 1 p.o. daily x2 days No Action fluoxetine [Prozac] 20 mg capsule 20 mg PO DAILY bupropion HCl [Wellbutrin SR] 150 mg Tablet Sustained-Release 12 Hr 300 mg PO DAILY Qty: 0 amitriptyline 10 mg Tablet 20 mg PO BEDTIME Qty: 0 omeprazole 20 mg Capsule,Delayed Release(Dr/Ec) 40 mg PO DAILY polyethylene glycol 3350 [Miralax] 17 gram/dose Powder 17 g PO DAILY PRN (Reason: Constipation) diphenhydramine-acetaminophen [Tylenol PM Extra Strength] 25-500 mg Tablet 1 tab PO Q6H PRN (Reason: Pain) Qty: 0 solifenacin 10 mg tablet 10 mg PO DAILY pregabalin [Lyrica] 75 mg Capsule 225 mg PO DAILY Trelegy Ellipta 100-62.5-25 mcg Blister With Device 1 inh INHALATION DAILY PRN (Reason: Shortness Of Breath Or Wheezing) Hold Instructions: Resume on 05/08/22. levothyroxine [Levoxyl] 100 mcg Tablet 100 mcg PO DAILY Qty: 30 0RF losartan 50 mg tablet 50 mg PO DAILY Qty: 30 0RF doxycycline hyclate 100 mg tablet 100 mg PO BID Advair HFA 115-21 mcg/actuation HFA aerosol inhaler 2 inh inhalation BID Qty: 12 0RF Discharge Orders: Discharge ED (Routine); Ordered 08/05/22 Ordered By: Chung Rivera Referrals: Nirav Pelletier [Primary Care Provider] - Patient Instructions: Opioid Safety, Pain Management Activity Restrictions/Additional Instructions: Start steroid taper tomorrow continue doxycycline use albuterol regularly while awake every 2-4 hours as needed. Follow-up with your primary care doctor within the next 10 to 14 days. 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
[2022-08-05 10:06] LABS: Troponin(5th) Baseline 53 ng/L (0-10)
[2022-08-05 10:08] LABS: Alanine Aminotransferase 11 U/L (0-33); Albumin Level 3.5 g/dL (3.5-5.2); Alkaline Phosphatase 88 U/L (35-105); Anion Gap 13.8 (5-19); Aspartate Amino Transferase 11 U/L (0-32); Blood Urea Nitrogen 8 mg/dL (8-23); Calcium 9.4 mg/dL (8.5-10.5); Carbon Dioxide 30 mmol/L (22-29); Chloride 92 mmol/L (98-107); Globulin 3.4 g/dL (1.3-4.6); Glomerular Filtration Rate 83.2 mL/min (90-130); Glucose 134 mg/dL (65-115); Osmolality Calculated 274 mOsm/kg (285-295); Potassium 3.8 mmol/L (3.5-5.1); Sodium 132 mmol/L (136-145); Total Bilirubin 0.4 mg/dL (0.15-1.2); Total Protein 6.9 g/dL (6.6-8.7)
[2022-08-05] MEDS: promethazine 25 mg/mL SDV 1 mL IM (10:33)
[2022-08-05] MEDS: ketorolac 30 mg/mL INJ 15 MG IVP (10:54)
[2022-08-05 11:25] VITALS: BP 176/134; PULSE 99; RESP 15; O2SAT 99
--- NOTE | 2022-08-05 11:33 | ECG_ITS ---
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 Measurements Intervals [place] Rate: 103 P: 72 IA: 151 QRS: -17 QRSD: 112 T: 90 QT: 339 QTc: 446 Interpretive Statements SINUS TACHYCARDIA MODERATE INTRAVENTRICULAR CONDUCTION DELAY [110+ ms QRS DURATION] MODERATE VOLTAGE CRITERIA FOR LVH, CONSIDER NORMAL VARIANT NONSPECIFIC T-WAVE ABNORMALITY Compared to ECG 08/05/2022 09:48:23 Intraventricular conduction delay now present T-wave abnormality now present ST (T wave) deviation no longer present Electronically Signed On 08-05-2022 11:51:42 CDT by Gay Manley M.D. [id number]
[2022-08-05 11:54] LABS: Troponin 5 2HR 51.25 ng/L (0-10); Troponin 5 2HR Delta -1.75 ABS# (0-10)
[2022-08-05 12:30] VITALS: BP 183/101; PULSE 105; RESP 16; O2SAT 99
[2022-08-05] MEDS: dexamethasone 10 mg/mL INJ IVP (12:48)
[2022-08-05] MEDS: metoclopramide 5 mg/mL SDV 2 mL 10 MG IVP (12:48)
[2022-08-05 13:00] VITALS: BP 172/97; PULSE 105; RESP 15; O2SAT 97
== END 2022-08-05 13:15 | disposition home or self-care (01) ==
PROVIDERS: Emergency Provider Family Medicine; PCP Family Medicine
DX: R07.89 Other chest pain (principal); J44.1 Chronic obstructive pulmonary disease with (acute) exacerbation; Z87.891 Personal history of nicotine dependence; I10 Essential (primary) hypertension
CPT/HCPCS: 71045; 80053; 84484; 85025; 93005; 96372; 96374; 96375; 99285; J1100; J1885; J2550; J2765

== ENCOUNTER → 2022-08-15 14:05 | Outpatient (BNVA) | payer OTHER, SELFPAY | PROVIDERS: PCP Family Medicine; Visit Provider Specialist | DX: M97.8XXA Periprosthetic fracture around other internal prosthetic joint, initial encounter (principal); Z96.659 Presence of unspecified artificial knee joint | CPT/HCPCS: 73562 ==

== ENCOUNTER 2022-10-10 13:45 | Outpatient (CLI) | payer OTHER, SELFPAY ==
--- NOTE | 2022-10-10 14:33 | XRR_ITS ---
PROCEDURE INFORMATION: Exam: XR Right Knee Exam date and time: 10/10/2022 3:05 PM Age: 67 years old Clinical indication: Device placement; Joint replacement hardware; Prior surgery; Surgery date: Post-operative (0-2 days); Surgery type: Post op; Additional info: Post op, patient will need to be non wt bearing and will need use of evin lift for TECHNIQUE: Imaging protocol: Radiologic exam of the Right knee. Views: 3 views. COMPARISON: CR XR knee RT 3V* [id number] 08/15/2022 2:06 PM FINDINGS: Bones/joints: From prior the distal femur deformity shows progressive healing. Right knee arthroplasty intact. Diffuse osteopenia. No new fracture. Soft tissues: Unremarkable. XR/XR knee RT 3V* [id number] IMPRESSION: Distal femur fracture shows mild progressive healing. No acute finding seen today.
== END 2022-10-10 13:46 | disposition home or self-care (01) ==
PROVIDERS: PCP Family Medicine; Visit Provider Specialist
DX: M97.8XXA Periprosthetic fracture around other internal prosthetic joint, initial encounter (principal); Z96.659 Presence of unspecified artificial knee joint
CPT/HCPCS: 73562

== ENCOUNTER 2022-11-14 14:56 | Outpatient (CLI) | payer MEDICARE, OTHER, SELFPAY ==
--- NOTE | 2022-11-14 15:12 | XRR_ITS ---
PROCEDURE INFORMATION: Exam: XR Right Knee Exam date and time: 11/14/2022 3:15 PM Age: 67 years old Clinical indication: Device placement; Other: Post op orif, prior surgery; Surgery date: 6+ months; Surgery type: RT femur and knee 01/21; Additional info: Post op orif, patient is non weightbearing- evin lift- [facility] radiology TECHNIQUE: Imaging protocol: Radiologic exam of the Right knee. Views: 3 views. COMPARISON: CR XR knee RT 3V* [id number] 10/10/2022 3:05 PM FINDINGS: Bones/joints: There is periosteal callus formation along a distal femoral diaphyseal fracture site. Alignment at fracture site is stable. Intact fixation plate and screws. Total knee prosthesis is intact. There is marked anterior subluxation of the femoral component of the the prosthesis relative to the tibial component. Soft tissues: Unremarkable. XR/XR knee RT 3V* [id number] IMPRESSION: 1. Marked anterior subluxation of the distal femur relative to the tibia with near dislocation. 2. Intact prosthetic components. No sign of loosening. No acute fracture. 3. Healed fracture in the distal femoral diaphysis.
--- NOTE | 2022-11-14 15:12 | XRR_ITS ---
PROCEDURE INFORMATION: Exam: XR Right Femur Exam date and time: 11/14/2022 3:15 PM Age: 67 years old Clinical indication: Device placement; Prior surgery; Surgery date: 6+ months; Surgery type: RT femur and knee 04/2022; Additional info: Post op orif, patient is non weight bearing- evin lift- [facility] [place] radiology TECHNIQUE: Imaging protocol: Radiologic exam of the Right femur. Views: 2 views. COMPARISON: CR XR femur RT min 2V* [id number] 07/11/2022 2:28 PM FINDINGS: Bones/joints: The proximal femur is intact. Total hip prosthesis is intact and well aligned. No sign of loosening. The visible pelvis is intact. No fracture. There is a healed fracture in the distal femoral diaphysis with intact fixation plate and screws. Malalignment at the knee is better visualized on the knee radiographs. Soft tissues: Visible soft tissues are unremarkable. XR/XR femur RT min 2V* [id number] IMPRESSION: 1. Intact right hip prosthesis. 2. Healed distal femoral fracture. 3. Malalignment at the knee. See knee radiograph.
== END 2022-11-14 14:57 | disposition home or self-care (01) ==
LOC: RAD 15:06
PROVIDERS: PCP Nurse Practitioner Family; Visit Provider Specialist
DX: M97.8XXA Periprosthetic fracture around other internal prosthetic joint, initial encounter (principal); S83.121A Posterior subluxation of proximal end of tibia, right knee, initial encounter; X58.XXXA Exposure to other specified factors, initial encounter
CPT/HCPCS: 73552; 73562

== ENCOUNTER 2022-11-16 15:17 | Outpatient (CLI) | payer MEDICARE, OTHER, SELFPAY | END 2022-11-16 15:18 | disposition home or self-care (01) | LOC: SPT 15:17 | PROVIDERS: PCP Nurse Practitioner Family; Visit Provider Specialist | DX: Z46.89 Encounter for fitting and adjustment of other specified devices (principal); M97.8XXD Periprosthetic fracture around other internal prosthetic joint, subsequent encounter; Z96.651 Presence of right artificial knee joint | CPT/HCPCS: 97760; 99215; L1830 ==

== ENCOUNTER 2022-12-28 12:38 | Outpatient (CLI) | payer MEDICARE, OTHER, SELFPAY ==
--- NOTE | 2022-12-28 12:49 | XRR_ITS ---
PROCEDURE INFORMATION: Exam: XR Right Femur Exam date and time: 12/28/2022 1:30 PM Age: 67 years old Clinical indication: Device placement; Other: Femur fracture; Prior surgery; Additional info: Post op, include all hardware-evin lift TECHNIQUE: Imaging protocol: Radiologic exam of the right femur. Views: 2 views. COMPARISON: CR XR femur RT min 2V* [id number] 11/14/2022 3:15 PM FINDINGS: Bones/joints: Anatomic alignment of right hip and knee arthroplasties. Surgical hardware transfixing healing fracture of the distal right femoral diaphysis with fracture lines remaining evident. Osteopenia and degenerative change. Soft tissues: Diffuse soft tissue prominence and skin folds. Vasculature: Vascular calcification. XR/XR femur RT min 2V* [id number] IMPRESSION: Surgical hardware transfixing healing fracture of the distal right femoral diaphysis with fracture lines remaining evident.
--- NOTE | 2022-12-28 12:49 | XRR_ITS ---
PROCEDURE INFORMATION: Exam: Right knee radiographs Exam date and time: 12/28/2022 1:30 PM Age: 67 years old Clinical indication: Device placement; Joint replacement hardware; Prior surgery; Additional info: Post op, evin lift-include all hardware TECHNIQUE: Imaging protocol: Radiologic exam of the right knee Views: AP and lateral views COMPARISON: CR XR knee RT 3V* [id number] 11/14/2022 3:15 PM FINDINGS: Bones/joints: Healing fracture in the distal right femoral diaphysis transfixed by surgical hardware, with fracture lines remaining evident. Osteopenia. Anatomic alignment of right knee arthroplasty. Soft tissues: Soft tissue and periarticular calcifications. XR/XR knees AP WB w RT lmt ORTH IMPRESSION: Healing fracture of the distal right femoral diaphysis, with fracture lines remaining evident.
== END 2022-12-28 12:39 | disposition home or self-care (01) ==
LOC: RAD 12:44
PROVIDERS: PCP Nurse Practitioner Family; Visit Provider Specialist
DX: Z98.890 Other specified postprocedural states (principal); S72.401A Unspecified fracture of lower end of right femur, initial encounter for closed fracture; X58.XXXA Exposure to other specified factors, initial encounter; I96 Gangrene, not elsewhere classified; L97.812 Non-pressure chronic ulcer of other part of right lower leg with fat layer exposed
CPT/HCPCS: 11042; 73552; 73560; 73565; 87070; 87077; 87176; 87186; 87205; 99213; A6446

== ENCOUNTER → 2023-01-12 14:42 | Outpatient (BNVA) | payer MEDICARE, OTHER, SELFPAY | PROVIDERS: PCP Nurse Practitioner Family; Visit Provider Nurse Practitioner Family | DX: I96 Gangrene, not elsewhere classified (principal); L97.812 Non-pressure chronic ulcer of other part of right lower leg with fat layer exposed | CPT/HCPCS: 11042; 99205 ==

== ENCOUNTER → 2023-01-18 14:59 | Outpatient (BNVA) | payer MEDICARE, OTHER, SELFPAY | PROVIDERS: PCP Nurse Practitioner Family; Visit Provider Thoracic Surgery (Cardiothoracic Vascular Surgery) | DX: I96 Gangrene, not elsewhere classified (principal); L97.812 Non-pressure chronic ulcer of other part of right lower leg with fat layer exposed | CPT/HCPCS: 11042 ==

== ENCOUNTER → 2023-01-25 13:43 | Outpatient (BNVA) | payer MEDICARE, OTHER, SELFPAY | PROVIDERS: PCP Nurse Practitioner Family; Visit Provider Thoracic Surgery (Cardiothoracic Vascular Surgery) | DX: L97.812 Non-pressure chronic ulcer of other part of right lower leg with fat layer exposed (principal); I96 Gangrene, not elsewhere classified | CPT/HCPCS: 11042; A6446 ==

== ENCOUNTER → 2023-02-08 13:27 | Outpatient (BNVA) | payer MEDICARE, OTHER, SELFPAY | PROVIDERS: PCP Nurse Practitioner Family; Visit Provider Thoracic Surgery (Cardiothoracic Vascular Surgery) | DX: L97.116 Non-pressure chronic ulcer of right thigh with bone involvement without evidence of necrosis (principal) | CPT/HCPCS: 11042 ==

== ENCOUNTER → 2023-02-22 13:27 | Outpatient (BNVA) | payer MEDICARE, OTHER, SELFPAY | PROVIDERS: PCP Nurse Practitioner Family; Visit Provider Thoracic Surgery (Cardiothoracic Vascular Surgery) | DX: I96 Gangrene, not elsewhere classified (principal); L97.812 Non-pressure chronic ulcer of other part of right lower leg with fat layer exposed | CPT/HCPCS: 11042; A6446 ==

== ENCOUNTER → 2023-03-08 13:50 | Outpatient (BNVA) | payer MEDICARE, OTHER, SELFPAY | PROVIDERS: PCP Nurse Practitioner Family; Visit Provider Thoracic Surgery (Cardiothoracic Vascular Surgery) | DX: I96 Gangrene, not elsewhere classified (principal); L97.812 Non-pressure chronic ulcer of other part of right lower leg with fat layer exposed | CPT/HCPCS: 11042; A6446 ==

== ENCOUNTER 2023-03-08 16:27 | Outpatient (CLI) | payer MEDICARE, OTHER, SELFPAY ==
--- NOTE | 2023-03-08 16:40 | XRR_ITS ---
PROCEDURE INFORMATION: Exam: XR Right Femur Exam date and time: 03/08/2023 5:00 PM Age: 67 years old Clinical indication: Pain; Thigh; Right; Prior surgery; Surgery date: 6+ months; Surgery type: Hip/femur; Additional info: Fracture TECHNIQUE: Imaging protocol: Radiologic exam of the right femur. Views: 2 views. COMPARISON: CR XR femur RT min 2V* [id number] 12/28/2022 1:30 PM FINDINGS: Bones/joints: Total right hip arthroplasty alignment is anatomic. No fracture. No loosening. Previous distal femur diaphyseal fracture surgically fixated with unremarkable alignment. Partial healing increased in appearance from prior. Increased maturation of bone callus. Further sclerosis. No loosening of hardware. Right knee joint arthroplasty alignment is unremarkable. Negative for joint effusion. Soft tissues: Unremarkable. XR/XR femur RT min 2V* [id number] IMPRESSION: No complication of healing seen.
--- NOTE | 2023-03-08 16:40 | XRR_ITS ---
PROCEDURE INFORMATION: Exam: XR Bilateral Knees, Standing AP Exam date and time: 03/08/2023 5:00 PM Age: 67 years old Clinical indication: Pain; Knee; Right; Prior surgery; Surgery date: 6+ months; Surgery type: Femur/hip; Additional info: Knee pain TECHNIQUE: Imaging protocol: Radiologic exam of the bilateral knees. Views: Standing AP. COMPARISON: CR XR knees AP WB w RT lmt ORTH 12/28/2022 1:30 PM FINDINGS: Bones/joints: Right knee joint tibiofemoral arthroplasty alignment is normal. No acute fracture. No loosening. Demineralized bones. Previous right distal femur diaphyseal fracture partially included in the field of view demonstrating partial healing. Partially included lateral side femoral fixation surgical plate. Soft tissues: Normal. XR/XR knees AP WB w RT lmt ORTH IMPRESSION: Unremarkable right knee arthroplasty surveillance.
== END 2023-03-08 16:28 | disposition home or self-care (01) ==
LOC: RAD 16:33
PROVIDERS: PCP Nurse Practitioner Family; Visit Provider Specialist
DX: M97.8XXA Periprosthetic fracture around other internal prosthetic joint, initial encounter (principal); S72.491D Other fracture of lower end of right femur, subsequent encounter for closed fracture with routine healing; X58.XXXD Exposure to other specified factors, subsequent encounter; Z96.651 Presence of right artificial knee joint; Z96.641 Presence of right artificial hip joint; Z98.890 Other specified postprocedural states
CPT/HCPCS: 73552; 73560; 73565

== ENCOUNTER → 2023-03-15 13:27 | Outpatient (BNVA) | payer MEDICARE, OTHER, SELFPAY | PROVIDERS: PCP Nurse Practitioner Family; Visit Provider Specialist | DX: M97.8XXA Periprosthetic fracture around other internal prosthetic joint, initial encounter (principal); Z96.651 Presence of right artificial knee joint; R53.1 Weakness; T84.51XA Infection and inflammatory reaction due to internal right hip prosthesis, initial encounter; Y79.2 Prosthetic and other implants, materials and accessory orthopedic devices associated with adverse incidents | CPT/HCPCS: 99213 ==

== ENCOUNTER → 2023-03-22 14:52 | Outpatient (BNVA) | payer MEDICARE, OTHER, SELFPAY | PROVIDERS: PCP Nurse Practitioner Family; Visit Provider Thoracic Surgery (Cardiothoracic Vascular Surgery) | DX: I96 Gangrene, not elsewhere classified (principal); L97.812 Non-pressure chronic ulcer of other part of right lower leg with fat layer exposed | CPT/HCPCS: 11042; A6446 ==

== ENCOUNTER → 2023-04-19 15:03 | Outpatient (BNVA) | payer MEDICARE, OTHER, SELFPAY | PROVIDERS: PCP Nurse Practitioner Family; Visit Provider Thoracic Surgery (Cardiothoracic Vascular Surgery) | DX: I96 Gangrene, not elsewhere classified (principal); L97.812 Non-pressure chronic ulcer of other part of right lower leg with fat layer exposed | CPT/HCPCS: 11042; A6446 ==

== ENCOUNTER 2023-04-23 16:09 | Inpatient (IN) | payer MEDICARE, OTHER, SELFPAY ==
--- NOTE | 2023-04-23 16:15 | ED_ITS ---
HPI - Neuro Symptoms/Deficit General: Chief Complaint: Neuro Symptoms/Deficit Stated Complaint: stroke like symptoms, right sided weakness Time Seen by Provider: 04/23/23 16:14 Limitations: altered mental status History of Present Illness: Ms Tong is a 67-year-old lady with history of depression, COPD, chronic leg infection presented to the emergency department for mental status change. She arrives via [facility] as a stroke activation. Apparently she was last definitively known normal last night at about 1 AM when she went to bed. saw her this morning at 6 AM and did not wake her. Subsequently she did not get up so around 1230 he went to wake her and could not wake her. Somewhat unclear why there was a delay in EMS activation. Upon arrival patient provides no clinical history. EMS noted right-sided flaccid paralysis left gaze pre ference with no speech. History otherwise limited by mental state. 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 Hypertension Hyponatremia Hypothyroidism Osteoarthritis Overactive bladder Periprosthetic fracture around internal prosthetic knee joint Surgical History History of back surgery History of bilateral knee replacement History of History of hysterectomy History of right hip replacement History of tonsillectomy Hx of cervical spine surgery Family History Other Hypertension Social History Smoking and tobacco status: former smoker Alcohol intake: current Alcohol intake frequency: holidays/special occasions only Substance/Drug Use: never Household members: spouse Marital status: Female Reproductive History: Para: 2 NIH stroke score NIHSS: Level Of Consciousness - 1a: 0 Level Of Consciousness Questions - 1b: Neither Correct Level Of Consciousness Commands - 1c: Neither Correct Best Gaze - 2: Forced Deviation Visual [place] - 3: Complete Hemianopia Facial Palsy - 4: Normal Motor Arm Right - 5: No Movement Motor Arm Left - 5: No Drift Motor Leg Right - 6: Effort Against [place] Motor Leg Left - 6: No Drift Sensory - 8: Severe To Total Loss Best Language - 9: Mute; Global Aphasia Physical Exam Const: COMMON NORMALS: alert GENERAL APPEARANCE: anxious HENMT: COMMON NORMALS: normocephalic and atraumatic HEAD & SCALP: normocephalic and atraumatic THROAT: posterior oropharynx normal Eye: COMMON NORMALS: conjunctivae normal CONJUNCTIVA: Yes conjunctivae normal SCLERA: sclerae normal Neck/C-Spine: COMMON NORMALS: supple GENERAL: Yes trachea midline Resp: COMMON NORMALS: normal respiratory effort and clear to auscultation bilaterally AUSCULTATION: clear to auscultation bilaterally Cardio: COMMON NORMALS: regular rhythm RATE: tachycardic RHYTHM: regular rhythm GI: COMMON NORMALS: Soft to palpation PALPATION: Yes Soft to palpation and No Tenderness to palpation present (GI) Extremity: GENERAL: Yes normal exam except as noted and No edema Neuro: SENSORIUM/ORIENTATION: Yes alert and Yes Orientation impaired OTHER: Left gaze deviation, right upper extremity flaccid paralysis, mild movement in right lower extremity which is chronically weak. Course Vital Signs: Vital signs: Vital Signs Temperature 97.8 F 04/28/23 07:09 Pulse Rate 101 H 04/28/23 08:00 Respiratory Rate 18 04/28/23 08:00 Blood Pressure 113/73 04/28/23 07:09 Pulse Oximetry 95 04/28/23 08:00 Oxygen Delivery Me thod Room Air 04/28/23 08:00 Oxygen Flow Rate 2 04/26/23 08:00 MDM - Neuro Symptoms/Deficit Medical Decision Making 67-year-old lady presenting with strokelike symptoms as a stroke activation from the field however patient is outside of tPA window. Brought to CT scanner. No evidence of acute hemorrhage or mass on my interpretation. EKG demonstrates sinus rhythm with irregularity, left axis deviation, interventricular conduction delay, T wave abnormality, no STEMI. Labs notable for leukocytosis, normocytic anemia. ABG with mild alkalosis. Metabolic panel does demonstrate hyponatremia. No UTI. Toxic ingestions negative. CTA with no LVO. Neurology assessed patient. Plan to admit for stroke. The results of ED evaluation were discussed with the patient and family including plan for admission due to requirement for level of care not available if discharged to prevent significant worsening/deterioration. Patient agreeable with plan. Discussed with hospitalist service who was agreeable to admit patient. Medical Records I reviewed the patient's medical records. Lab Data I reviewed the patient's lab results. 04/28/23 05:47 04/28/23 05:47 Radiology Impressions Head/Neck CTA 04/23/23 16:15 IMPRESSION: No large vessel stenosis or occlusion. IMPRESSION: 1. No large vessel stenosis or occlusion. No dissection. 2. Minimal pulmonary ground-glass opacities are nonspecific and can be seen with low lung volumes/atelectasis, pulmonary edema, and or pneumonia. REFERENCES: NASCET CRITERIA. The degree of stenosis in the cervical segment of the internal carotid artery is based on NASCET criteria. Normal is no stenosis. Mild is less than 50% stenosis. Moderate is 50-69% stenosis. Severe is 70% to 99% stenosis. Total occlusion is no detectable patent lumen. Hip/Pelvis X-Ray 04/23/23 16:56 IMPRESSION: No acute findings.Non acute findings as described above. Venous Duplex 04/23/23 18:35 IMPRESSION: No evidence of deep vein thrombosis. KUB X-Ray 04/23/23 18:39 IMPRESSION: No acute findings. Hip CT 04/23/23 22:48 IMPRESSION: 1. Right hip prosthesis is intact without evidence of loosening or bony destructive change. 2. There is a thick-walled defect in the right lateral thigh extending to the muscular fascia. Luminal debris may represent packing material but necrotic tissue is not excluded. 3. Severe distension of the rectum with fecal debris. Catheterized urinary bladder. Chest X-Ray 04/24/23 06:33 IMPRESSION: Unremarkable frontal portable chest x-ray. Head CT 04/24/23 14:18 IMPRESSION: 1. No evidence of intracranial hemorrhage or mass effect. 2. Mild small vessel changes with mild parenchymal volume loss. 3. No acute intracranial findings. Modified Barium Swallow 04/26/23 10:30 IMPRESSION: PLEASE REFER TO THE SPEECH PATHOLOGIST REPORT FOR ADDITIONAL DETAILS REGARDING THIS MODIFIED BARIUM SWALLOW STUDY. Laboratory Results WBC 17.0 10^3/uL (4.0-10.0) H 04/23/23 17:16 RBC 4.01 10^6/uL (4.1-5.3) L 04/23/23 17:16 Hgb 11.2 g/dL (11.5-15.3) L 04/23/23 17:16 Hct 36.3 % (37.0-47.0) L 04/23/23 17:16 MCV 90.5 fl (81-99) 04/23/23 17:16 MCH 27.9 pg (28.0-34.0) L 04/23/23 17:16 MCHC 30.9 g/dL (30.0-36.0) 04/23/23 17:16 RDW 13.1 % (12.1-15.1) 04/23/23 17:16 Plt Count 376 10^3/cmm (130-400) 04/23/23 17:16 MPV 9.9 fL (7.4-10.4) 04/23/23 17:16 Neut % (Auto) 77.3 % 04/23/23 17:16 Lymph % (Auto) 13.4 % 04/23/23 17:16 Williamson % (Auto) 8.1 % 04/23/23 17:16 Eos % (Auto) 0.6 % 04/23/23 17:16 Baso % (Auto) 0.2 % 04/23/23 17:16 Neut # (Auto) 13.13 10^3/uL (1.8-7.7) H 04/23/23 17:16 Lymph # (Auto) 2.3 10^3/uL (0.8-4.8) 04/23/23 17:16 Williamson # (Auto) 1.4 10^3/uL (0.2-0.9) H 04/23/23 17:16 Eos # (Auto) 0.1 10^3/uL (0.0-0.8) 04/23/23 17:16 Baso # (Auto) 0.0 10^3/uL (0.0-0.1) 04/23/23 17:16 Nucleated RBC % (auto) 0 % 04/23/23 17:16 Nucleated RBCs # 0.0 /100WBC 04/23/23 17:16 ESR 56 mm/hr (0-15) H 04/23/23 17:16 PT 14.20 SECONDS (12.1-14.9) 04/23/23 17:16 INR 1.07 (0.8-1.2) 04/23/23 17:16 APTT 29.0 SECONDS (23.9-36.7) 04/23/23 17:16 Specimen Type Arterial 04/23/23 16:37 Sample Site Radial, left 04/23/23 16:37 ABG pH 7.49 (7.35-7.45) H 04/23/23 16:37 ABG pCO2 37.2 mmHg (35-45) 04/23/23 16:37 ABG pO2 81.2 mmHg (80.0-100.0) 04/23/23 16:37 ABG HCO3 28.3 mmol/L (22-26) H 04/23/23 16:37 ABG Base Excess 4.7 mmol/L (-2.0-2.0) H 04/23/23 16:37 Hernan Test Pos 04/23/23 16:37 Hematocrit 33.9 % (37-47) L 04/23/23 16:37 O2 Delivery Device Nc 04/23/23 16:37 O2 Liters/Min 2.0 % 04/23/23 16:37 Clinical Rehabilitation Aide ID Cak 04/23/23 16:37 Sodium 121 mmol/L (136-145) L 04/23/23 18:53 Sodium 122 mmol/L (136-145) L 04/23/23 18:53 Potassium 4.0 mmol/L (3.5-5.1) 04/23/23 17:16 Chloride 88 mmol/L (98-107) L 04/23/23 17:16 Carbon Dioxide 28 mmol/L (22-29) 04/23/23 17:16 Anion Gap 13.0 (5-19) 04/23/23 17:16 BUN 13 mg/dL (8-23) 04/23/23 17:16 Creatinine 0.6 mg/dL (0.5-0.9) 04/23/23 17:16 GFR Calculation 99.1 mL/min (90-130) 04/23/23 17:16 Glucose 100 mg/dL (65-115) 04/23/23 17:16 POC Glucose 96 mg/dL (70-110) 04/23/23 16:28 Calculated Osmolality 260 mOsm/kg (285-295) L 04/23/23 17:16 Lactic Acid 0.8 mmol/L (0.5-2.2) 04/23/23 18:53 Calcium 8.9 mg/dL (8.5-10.5) 04/23/23 17:16 Total Bilirubin 0.5 mg/dL (0.15-1.2) 04/23/23 17:16 AST 15 U/L (0-32) 04/23/23 17:16 ALT 6 U/L (0-33) 04/23/23 17:16 Alkaline Phosphatase 62 U/L (35-105) 04/23/23 17:16 Ammonia 21 umol/L (11-51) 04/23/23 18:57 C-Reactive Protein 126.8 mg/L (0.0-4.9) H 04/23/23 18:53 Total Protein 6.6 g/dL (6.6-8.7) 04/23/23 17:16 Albumin 2.9 g/dL (3.5-5.2) L 04/23/23 17:16 Globulin 3.7 g/dL (1.3-4.6) 04/23/23 17:16 Procalcitonin 0.09 ng/mL (0-0.5) 04/23/23 18:53 Urine Color Yellow (Yellow) 04/23/23 18:13 Urine Appearance Sl hazy (CLEAR) A 04/23/23 18:13 Urine pH 5 (5-7) 04/23/23 18:13 Ur Specific [place] 1.020 (1.005-1.030) 04/23/23 18:13 Urine Protein 1+ (Negative) H 04/23/23 18:13 Urine Glucose (UA) Norm (Normal) 04/23/23 18:13 Urine Ketones Negative (Negative) 04/23/23 18:13 Urine Blood Neg (Negative) 04/23/23 18:13 Urine Nitrate Negative (Negative) 04/23/23 18:13 Urine Bilirubin Neg (Negative) 04/23/23 18:13 Urine Urobilinogen 1 mg/dL (Negative) H 04/23/23 18:13 Ur Leukocyte Esterase Negative (Negative) 04/23/23 18:13 Urine RBC None /hpf (0-2) 04/23/23 18:13 Urine WBC None /hpf (0-5) 04/23/23 18:13 Ur Squamous Epith Cells 10-15 /hpf (0-5) H 04/23/23 18:13 Ur Transition Epith Cell 0-4 /hpf 04/23/23 18:13 Amorphous Sediment Not Reportable 04/23/23 18:13 Urine Bacteria 1+ /hpf (NONE) H 04/23/23 18:13 Urine Mucus 2+ /hpf 04/23/23 18:13 Urine Opiates Screen Negative ng/mL (Negative) 04/23/23 18:13 Ur Barbiturates Screen Negative ng/mL (Negative) 04/23/23 18:13 Ur Phencyclidine Scrn Negative ng/mL (Negative) 04/23/23 18:13 Ur Amphetamines Screen Negative ng/mL (Negative) 04/23/23 18:13 U Benzodiazepines Scrn Negative ng/mL (Negative) 04/23/23 18:13 Urine Cocaine Screen Negative ng/mL (Negative) 04/23/23 18:13 U Marijuana (THC) Screen Negative ng/mL (Negative) 04/23/23 18:13 Ethyl Alcohol < 10 mg/dL (0-10) 04/23/23 17:16 Critical Care Time Critical Care Time: Critical Care Time: Yes Total Critical Care Time: 45 Attestation: Due to a high probability of clinically significant, possibly life threatening deterioration, the patient required my highest level of attention and prepare dness to intervene emergently and I personally spent this critical care time directly and personally managing the patient. This critical care time included obtaining a history; examining the patient; pulse oximetry; ordering and review of laboratory and imaging studies; arranging urgent treatment with development of a management plan; evaluation of patient's response to treatment; frequent reassessment; and, discussions with other providers as applicable. It was exclusive of separately billable procedures. Primary system involved is neuro vascular Discharge Plan Discharge Patient Disposition: Admitted As Inpatient Admit Provider: Tima Figueredo Clinical Impression: Cerebrovascular accident Condition: Stable Discharge Diet: As Directed Discharge Activity: Increase activity as tolerated Coding Level of Care Code ED Computer Application Developer for Jud Mooney
--- NOTE | 2023-04-23 16:15 | CTR_ITS ---
PROCEDURE INFORMATION: Exam: CTA Head With Contrast, Arteriography Exam date and time: 04/23/2023 4:12 PM Age: 67 years old Clinical indication: Stroke-like symptoms; Altered mental status/memory loss TECHNIQUE: Imaging protocol: Computed tomographic angiography of the head with contrast. Exam focused on the arteries. 3D rendering (Not supervised by radiologist): MIP and/or 3D reconstructed images were created by the technologist. Radiation optimization: All CT scans at this facility use at least one of these dose optimization techniques: automated exposure control; mA and/or kV adjustment per patient size (includes targeted exams where dose is matched to clinical indication); or iterative reconstruction. Contrast material: OMNI 350; Contrast volume: 100 ml; Contrast route: INTRAVENOUS (IV); REPORTING DATA: Count of CT and Cardiac NM exams in prior 12 months: This patient has received 0 known CTs and 0 known cardiac nuclear medicine studies in the 12 months prior to the current study. COMPARISON: CT cervical spin wo con* [id number] 07/13/2016 3:31 PM RADIATION DOSE METRICS: Total DLP (mGy-cm): 1911 FINDINGS: ANTERIOR CIRCULATION: Right internal carotid artery: There is mild atherosclerotic plaque in the carotid siphons with luminal irregularity however no significant focal stenosis. Intracranial segment is patent with no significant stenosis. No aneurysm. Right middle cerebral artery: No occlusion or significant stenosis. No aneurysm. Right anterior cerebral artery: No occlusion or significant stenosis. No aneurysm. Left internal carotid artery: There is mild atherosclerotic plaque in the carotid siphons with luminal irregularity however no significant focal stenosis. Intracranial segment is patent with no significant stenosis. No aneurysm. Left middle cerebral artery: No occlusion or significant stenosis. No aneurysm. Left anterior cerebral artery: No occlusion or significant stenosis. No aneurysm. POSTERIOR CIRCULATION: Right vertebral artery: No occlusion or significant stenosis. No aneurysm. Left vertebral artery: Mild atherosclerotic plaque. No occlusion or significant stenosis. No aneurysm. Basilar artery: No occlusion or significant stenosis. No aneurysm. Right posterior cerebral artery: No occlusion or significant stenosis. No aneurysm. Left posterior cerebral artery: No occlusion or significant stenosis. No aneurysm. Brain: No definite mass, mass effect, or midline shift. Periventricular and subcortical white matter low densities are present which at this age likely represent microvascular ischemic change.No evidence for large acute ischemic infarction. Please note acute ischemia can be occult by head CT. There is mild diffuse cerebral atrophy present, consistent with this patient's age. No evidence for acute intracranial hemorrhage. Cerebral ventricles: No ventriculomegaly. Bones/joints: Unremarkable. No acute fracture. Soft tissues: Unremarkable. PROCEDURE INFORMATION: Exam: CTA Neck With Contrast Exam date and time: 04/23/2023 4:12 PM Age: 67 years old Clinical indication: Stroke-like symptoms; Altered mental status/memory loss TECHNIQUE: Imaging protocol: Computed tomographic angiography of the neck with contrast. 3D rendering (Not supervised by radiologist): MIP and/or 3D reconstructed images were created by the technologist. Radiation optimization: All CT scans at this facility use at least one of these dose optimization techniques: automated exposure control; mA and/or kV adjustment per patient size (includes targeted exams where dose is matched to clinical indication); or iterative reconstruction. Contrast material: OMNI 350; Contrast volume: 100 ml; Contrast route: INTRAVENOUS (IV); REPORTING DATA: Count of CT and Cardiac NM exams in prior 12 months: This patient has received 0 known CTs and 0 known cardiac nuclear medicine studies in the 12 months prior to the current study. COMPARISON: CT cervical spin wo con* [id number] 07/13/2016 3:31 PM RADIATION DOSE METRICS: Total DLP (mGy-cm): 1911 FINDINGS: Right common carotid artery: No stenosis. No dissection or occlusion. Right internal carotid artery: No stenosis of the extracranial segment. No dissection or occlusion. Right external carotid artery: No occlusion or stenosis of the origin. Left common carotid artery: No stenosis. No dissection or occlusion. Left internal carotid artery: No stenosis of the extracranial segment. No dissection or occlusion. Left external carotid artery: No occlusion or stenosis of the origin. Right vertebral artery: No stenosis. No dissection or occlusion. Left vertebral artery: No stenosis. No dissection or occlusion. Soft tissues: Normal. No significant soft tissue swelling. Bones/joints: There are degenerative changes in the visualized spine. Postoperative changes are present in the cervical and thoracic spine. Lungs: There are minimal pulmonary ground-glass opacities. CT/CT angio headneck* [id number] IMPRESSION: No large vessel stenosis or occlusion. IMPRESSION: 1. No large vessel stenosis or occlusion. No dissection. 2. Minimal pulmonary ground-glass opacities are nonspecific and can be seen with low lung volumes/atelectasis, pulmonary edema, and or pneumonia. REFERENCES: NASCET CRITERIA. The degree of stenosis in the cervical segment of the internal carotid artery is based on NASCET criteria. Normal is no stenosis. Mild is less than 50% stenosis. Moderate is 50-69% stenosis. Severe is 70% to 99% stenosis. Total occlusion is no detectable patent lumen.
[2023-04-23 16:37] LABS: Glucose Point of Care 96 mg/dL (70-110)
--- NOTE | 2023-04-23 16:41 | ECG_ITS ---
[facility] Test Date: 2023-04-23 Pat Name: Scarlet Tong Department: Room: Gender: Female Riveter Hand: : 1955 Requested By: Aki Pena Order Number: [id number] Marciano MD: Gay Manley M.D. Measurements Intervals [place] Rate: 61 P: 49 VA: 151 QRS: -37 QRSD: 106 T: -62 QT: 508 QTc: 513 Interpretive Statements SINUS RHYTHM WITH OCCASIONAL ECTOPIC PREMATURE COMPLEXES LEFT AXIS DEVIATION [QRS AXIS < -30] MODERATE T-WAVE ABNORMALITY, CONSIDER ANTEROLATERAL ISCHEMIA MODERATE T-WAVE ABNORMALITY, CONSIDER INFERIOR ISCHEMIA Compared to ECG 08/05/2022 11:31:18 Left-axis deviation now present Possible ischemia now present Sinus tachycardia no longer present Intraventricular conduction delay no longer present T-wave abnormality still present Electronically Signed On 04-24-2023 21:17:35 CDT by Gay Manley M.D. [email or web address]
[2023-04-23] MEDS: iohexol 350 mg/mL 500 mL Btl (per mL) IV ×2 (16:43→22:57)
[2023-04-23 16:48] LABS: ABG PCO2 37.2 mmHg (35-45); ABG PH Result 7.49 (7.35-7.45); Arterial Blood Gas Hematocrit 33.9 % (37-47); Base Excess ABG 4.7 mmol/L (-2.0-2.0); Blood Gas Allen Test Pos; Blood Gas Operator Identificat CAK; Blood Gas Sample Site Radial, left; Blood Gas Sample Type Arterial; HCO3 ABG 28.3 mmol/L (22-26); Oxygen Device NC; PO2 ABG 81.2 mmHg (80.0-100.0)
--- NOTE | 2023-04-23 16:56 | XRR_ITS ---
PROCEDURE INFORMATION: Exam: XR Chest Exam date and time: 04/23/2023 5:20 PM Age: 67 years old Clinical indication: Other: AMS TECHNIQUE: Imaging protocol: Radiologic exam of the chest. Views: 1 view. COMPARISON: CR XR chest 1V portable [id number] 08/05/2022 9:37 AM FINDINGS: Lungs: Unremarkable. No consolidation. Pleural spaces: Mild blunting of the right costophrenic angle is suggestive of a small pleural effusion. Heart/Mediastinum: Unremarkable. No cardiomegaly. Diaphragm: Mild elevation of the right hemidiaphragm. Bones/joints: There are degenerative and postoperative changes in the cervical and thoracic spine. Degenerative changes extend across the glenohumeral joints and acromioclavicular joints. XR/XR chest 1V portable [id number] IMPRESSION: Mild blunting of the right costophrenic angle is suggestive of a small pleural effusion.
--- NOTE | 2023-04-23 16:56 | XRR_ITS ---
PROCEDURE INFORMATION: Exam: XR Right Hip Exam date and time: 04/23/2023 5:20 PM Age: 67 years old Clinical indication: AMS, HX infection TECHNIQUE: Imaging protocol: Radiologic exam of the right hip. Views: 1 view hip with pelvis when performed. COMPARISON: CR (PELVIS, ) 04/15/2022 10:23 PM FINDINGS: Bones/joints: Right total hip replacement. Acetabular and proximal femoral components appear intact without obvious complication. Metallic plate and screw fixation device partially visualized in the mid femoral diaphysis. Soft tissues: Unremarkable. Organs: There is contrast in the bladder. XR/XR hip RT 2-3V wo/w pel* [id number] IMPRESSION: No acute findings.Non acute findings as described above.
[2023-04-23 17:22] LABS: Basophils % 0.2 %; Eosinophils # 0.1 10^3/uL (0.0-0.8); Eosinophils % 0.6 %; Hematocrit 36.3 % (37.0-47.0); Hemoglobin 11.2 g/dL (11.5-15.3); Lymphocytes # 2.3 10^3/uL (0.8-4.8); Lymphocytes % 13.4 %; Mean Corpuscular HGB Conc 30.9 g/dL (30.0-36.0); Mean Corpuscular Hemoglobin 27.9 pg (28.0-34.0); Mean Corpuscular Volume 90.5 fl (81-99); Mean Platelet Volume 9.9 fL (7.4-10.4); Monocytes # 1.4 10^3/uL (0.2-0.9); Monocytes % 8.1 %; Neutrophils # 13.13 10^3/uL (1.8-7.7); Neutrophils % 77.3 %; Nucleated Red Blood Cells % 0 %; Platelet Count 376 10^3/cmm (130-400); Red Blood Count 4.01 10^6/uL (4.1-5.3); Red Cell Distribution Width 13.1 % (12.1-15.1)
--- NOTE | 2023-04-23 17:24 | P.CONIM_ITS ---
Providers/Reason For Consult Consulting Physician/Specialty*: Tho Harrington MD Neurology and Epilepsy Reason for Consult*: Code stroke on 04/23/2023 Primary Care Provider: Marion Goldsmith NP History of Present Illness History of Present Illness Scarlet Tong is a 67 year old female with a history of total right hip replacement on April 2022 and history of prosthetic joint infection and abscess treated by infectious disease and wound care since July 2022 and history of residual severe right lower extremity weakness addressed by physical therapy in the past. According to the patient's who presented to the emergency department room 10, 2 to 3 days prior to admission the patient reported not feeling well and was nauseated. According to the the patient had decrease food and water intake and was only eating some broth yesterday. The stated that the patient was also concerned about not drinking too much water since she wears diapers and has to be transferred with a Trini lift to get out of bed. The stated that he was concerned that the patient might be dehydrated and he attempted to give her water orally but she took the water and reported over her body since she reported feeling hot. The stated that the patient usually complains of feeling cold. Around 1 AM on 04/23/2023 he reports that he put the patient to bed and he said good night to his . The patient's stated that he went to bed around 3:30 AM on 04/23/2023. The patient's stated that he woke up around 6:30 AM on 04/23/2023 and he noticed that his was mouth breathing which is not unusual for her so he let her sleep. Then around 12:30 PM on 04/23/2023 the patient stated that he felt like his had slept long enough so he attempted to wake her but he was unable to arouse his and he noticed that she had right upper extremity weakness and was nonverbal therefore he called EMS and the patient was transferred to [facility] emergency room via ambulance. Upon the 's arrival I obtain the history regarding the patient. The patient's stated the patient has no history of seizures. In the emergency room bed #10, the patient is awake but nonverbal. The patient will follow commands. The patient displayed a left gaze preference with inability to look past the midline to the right. The patient has some right lower facial weakness and right upper extremity paralysis. The patient also appears to have visual neglect in the right eye with visual threat. Patient response to visual threat with the left eye. The patient also has chronic/baseline significant right lower extremity weakness. Patient moves her toes and foot spontaneously and to pain but does not lift her right leg. The patient uses her left arm purposefully and is moving the left leg spontaneously. Plantar responses flexor bilaterally. There is no clonus. Visual foreman were difficult to assess. Dysarthria cannot be assessed. Coordination could not be assessed. NIH score =13. Glucose Accu-Chek in the emergency room was 90. Noncontrast head CT revealed no acute findings and CT angiogram of the head and neck revealed no large vessel occlusion. Metabolic lab revealed a low serum sodium of 125 (normal equals 136-145), decreased chloride of 83 (normal equals 98-102), serum osmolality decreased at 260 (normal equals 285-295), albumin decreased at 2.9 (normal equals 3.5-5.2). White count was elevated at 17 with elevated neutrophil percentage of 13.13 and elevated monocytes at 1.4. Past medical history: Right hip surgery April 2022 Right hip abscess addressed by wound care and infectious disease Depression reports of hospitalization in 1978?80 Chronic obstructive pulmonary disease Overactive bladder Fibromyalgia Gastroesophageal reflux disease Drug allergies: Hydromorphone from Dilaudid which resulted in the patient experiencing loss of consciousness Oxycodone which resulted in hives Doxycycline which resulted in vomiting Morphine type of reaction unknown Opiates/morphine analogs resulted in drives her up a wall Penicillin which resulted in a rash Sulfonamide antibiotics/Bactrim which resulted in a rash Trimethoprim from Bactrim which resulted in a rash Ciprofloxacin which resulted in nausea Current home medications: Amitriptyline 50 mg p.o. nightly Amitriptyline 100 mg p.o. daily Prozac 20 mg p.o. daily Wellbutrin 150 mg p.o. daily Pepcid 40 mg p.o. twice daily Ibuprofen 200 mg as needed Linzess 145 mg p.o. daily Inderal 20 mg p.o. daily Omeprazole 20 mg p.o. daily Losartan 50 mg p.o. q. Synthroid 300 mcg p.o. daily Lyrica 75 mg p.o. every 8 hours Senokot 50 mg p.o. as needed Trelegy 100 mcg / 62.5 mcg/25 mcg 1 inhalation daily Solifenacin 10 mg p.o. acute Biotin 10,000 mcg p.o. daily Tylenol PM 500 mg tablets Habits: None Review of Systems General: Reports: 10 or more systems reviewed and unremarkable except in HPI and below Medications/Allergies Home Medications Medication Instructions Recorded Confirmed Last Taken Type amitriptyline 10 mg tablet 20 mg PO BEDTIME ##0 11/28/19 03/15/23 08/04/22 History bupropion HCl 150 mg tablet,12 hr 300 mg PO DAILY ##0 11/28/19 03/15/23 08/04/22 History sustained-release (Wellbutrin SR) diphenhydramine 25 1 tab PO Q6H PRN Pain ##0 11/28/19 03/15/23 11/27/19 History mg-acetaminophen 500 mg tablet (Tylenol PM Extra Strength) fluticasone fur. 100 mcg-umeclid 1 inh inhalation DAILY PRN 11/28/19 03/15/23 Unknown History 62.5 mcg-vilant 25 mcg Shortness Of Breath Or Wheezing inhalat.powder (Trelegy Ellipta) omeprazole 20 mg capsule,delayed 40 mg PO DAILY 11/28/19 03/15/23 08/04/22 His tory release polyethylene glycol 3350 17 17 g PO DAILY PRN Constipation 11/28/19 03/15/23 Un known History gram/dose oral powder (Miralax) pregabalin 75 mg capsule (Lyrica) 225 mg PO DAILY 11/28/19 03/15/23 08/04/22 History solifenacin 10 mg tablet 10 mg PO DAILY 11/28/19 03/15/23 08/04/22 History levothyroxine 100 mcg tablet 100 mcg PO DAILY #30 tabs 11/30/19 03/15/23 08/04/22 Rx (Levoxyl) losartan 50 mg tablet 50 mg PO DAILY #30 tabs 11/30/19 03/15/23 08/04/22 Rx fluoxetine 20 mg capsule (Prozac) 20 mg PO DAILY 06/10/21 03/15/23 08/04/22 History fluticasone propionate 115 2 inh inhalation BID #12 grams 04/20/22 03/15/23 Unknown Rx mcg-salmeterol 21 mcg/actuation HFA inhaler (Advair HFA) doxycycline hyclate 100 mg tablet 100 mg PO BID 08/05/22 03/15/23 08/04/22 History prednisone 20 mg tablet 20 mg PO TID #15 tabs 08/05/22 03/15/23 Unknown Rx cephalexin 500 mg capsule 500 mg PO BID #28 caps 10/10/22 03/15/23 Unknown Rx Drop Lock Knee Brace #1 ea 11/16/22 03/15/23 Unknown Rx Knee Immobilizer #1 ea 11/16/22 03/15/23 Unknown Rx sodium chloride 0.9 % irrigation 1 irrig irrigation DAILY wet to 01/25/23 03/15/23 Unknown Rx solution dry dressing #500 mL Allergies Allergy/AdvReac Type Severity Reaction Status Date / Time hydromorphone [From Dilaudid] Allergy Severe makes pt Verified 03/15/23 13:39 pass out oxycodone Allergy Severe hives Verified 03/15/23 13:39 doxycycline Allergy ADR-Vomitin Verified 03/15/23 13:39 g morphine Allergy Unknown Verified 03/15/23 13:39 Opioids - Morphine Analogues Allergy drives Verified 03/15/23 13:39 her up a wall Penicillins Allergy ALGY-Rash Verified 03/15/23 13:39 sulfamethoxazole Allergy ALGY-Rash Verified 03/15/23 13:39 [From Bactrim] trimethoprim [From Bactrim] Allergy ALGY-Rash Verified 03/15/23 13:39 cipro Allergy Intermediate ADR-Nausea Uncoded 03/15/23 13:39 PFSH Acute PFSH: Medical History Anemia COPD (chronic obstructive pulmonary disease) Depression 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 Hypertension Hyponatremia Hypothyroidism Osteoarthritis Overactive bladder Periprosthetic fracture around internal prosthetic knee joint Surgical History History of back surgery History of bilateral knee replacement History of History of hysterectomy History of right hip replacement History of tonsillectomy Hx of cervical spine surgery Family History Other Hypertension Social History Smoking and tobacco status: former smoker Alcohol intake: current Alcohol intake frequency: holidays/special occasions only Substance/Drug Use: never Household members: spouse Marital status: Female Reproductive History: Para: 2 Vitals/I&O/Wt Weight last 48 hrs Weight 245 lb Physical Exam Narrative: NIH score = 13 The patient is alert but nonverbal. The patient will follow simple commands. Head atraumatic. The patient has a left gaze preference and does not look past midline to the right. Pupils 4 mm and reactive to light. Extraocular movements could not be assessed secondary to left gaze preference. Cranial nerves II through XII revealed right lower facial weakness. And left gaze preference. Motor testing revealed 5/5 in the left upper extremity, and spontaneous movement of the left lower extremity, weakness in the right lower extremity with movement of her toes and foot which the stated is baseline for the patient since her right hip surgery and right hip abscess that occurred in July 2022, addressed by wound care and infectious disease. Right upper extremity revealed paralysis. The patient was able to detect pain with some flexion/withdrawal of the right arm. Pinprick was intact in the other extremities. Deep tendon reflexes revealed plantar responses bilaterally. Patient had signs of bilateral knee surgery. And reported signs of right hip surgery per and emergency room staff. Patient has a bandage on the right hip secondary to reported right hip abscess. Feet revealed no clubbing or cyanosis. Throat clear. Lungs revealed no obvious wheezing. Heart regular rhythm and rate abdomen soft bowel sounds positive. Data 04/23/23 17:16 04/23/23 17:16 A&P Assessment and plan (1) Cerebral infarction, left hemisphere: (2) Non-fluent aphasia: (3) Hyponatremia: (4) Right arm weakness: Plan Assessment: 1. Acute left cerebral infarction manifested as left gaze preference, nonfluent aphasia and right upper extremity paralysis. Note: Although noncontrast head CT and CT angiogram of the head and neck revealed no acute findings or stenosis, the patient's last known well was 1 AM on 04/23/2023 and patient presented to the emergency room approximately 10 minutes after code stroke was initiated at 3:54 PM on 04/23/2023. Therefore patient was not a candidate for tPA and no tPA was administered. 2. Hyponatremia serum sodium 125 (normal equals 136-145) 3. Elevated white count of 17,000 with elevated neutrophils and monocyte percentages of 13.13 and 1.4 respectively 4. Decreased serum albumin of 2.9 (normal equals 3.5-5.2) 5. Total right hip replacement in April 2022 followed by right hip abscess July 2022 addressed by the wound care clinic and infectious disease 6. Depression 7. Hypertension 8. Hypothyroidism 9. Gastroesophageal reflux disease 10. Overactive bladder Plan: 1. Recommend noncontrast head MRI to further assess for left hemispheric stroke 2. Slow correction of hyponatremia with normal saline and address for any dehydration 3. Monitor serum sodium 4. Occupational Therapy, physical therapy and speech therapy 5. Recommend consulting infectious disease and or wound care regarding right hip abscess 6. Assess for sepsis related to right hip abscess 7. Evaluate patient for urinary tract infection 8. Evaluate patient for bowel constipation/and or obstruction 9. Recommend psychiatry consult to address multiple antidepressant medication regimen and history of depression since patient is increased risk for serotonin syndrome 10. Recommend starting aspirin 325 mg daily, and a lipid-lowering agent daily per NIH stroke protocol if no contraindications Consult Attestations Medical Necessity Statement: I spent 70 minutes [id number] with this patient evaluating the patient, reviewing/reconciling the patient's medications that were brought with the patient to the emergency room and a box, reassessing the patient periodically to assess for any change in the patient's neurological condition while awaiting her 's arrival and then speaking with the at great length obtaining the patient's history, informing the patient's of the head CT and CT angiogram results which I reviewed with the ER physician and obtaining the patient's history and then reassessing the patient with the present to [place] which findings on the patient's neurological exam were chronic versus acute and determining the patient's NIH score. Note: Since the patient presented to the emergency room with last known normal at 1 AM, the patient was not a candidate for tPA and no tPA was administered. Coding Level of Care Code 14613 Diagnoses Cerebral infarction, left hemisphere I63.9 Non-fluent aphasia R47.01 Hyponatremia E87.1 Right arm weakness R29.898 Time Spent (min) 70
[2023-04-23 17:33] LABS: INR 1.07 (0.8-1.2)
[2023-04-23 17:38] LABS: Alanine Aminotransferase 6 U/L (0-33); Albumin Level 2.9 g/dL (3.5-5.2); Alkaline Phosphatase 62 U/L (35-105); Aspartate Amino Transferase 15 U/L (0-32); Blood Urea Nitrogen 13 mg/dL (8-23); Calcium 8.9 mg/dL (8.5-10.5); Carbon Dioxide 28 mmol/L (22-29); Chloride 88 mmol/L (98-107); Globulin 3.7 g/dL (1.3-4.6); Glomerular Filtration Rate 99.1 mL/min (90-130); Glucose 100 mg/dL (65-115); Osmolality Calculated 260 mOsm/kg (285-295); Sodium 125 mmol/L (136-145); Total Bilirubin 0.5 mg/dL (0.15-1.2); Total Protein 6.6 g/dL (6.6-8.7)
[2023-04-23 17:41] LABS: Alcohol Level < 10 mg/dL (0-10)
[2023-04-23 17:56] VITALS: BP 123/79; PULSE 109; RESP 18; O2SAT 98
[2023-04-23 18:25] LABS: Bilirubin Urine Neg (Negative); Blood Urine Neg (Negative); Glucose Urine UA Norm (Normal); Ketones Urine Negative (Negative); Leukocyte Esterase Urine Negative (Negative); Nitrate Urine Negative (Negative); Protein Urine 1+ (Negative); Urine Appearance SL Hazy (CLEAR); Urine Color Yellow (Yellow); Urobilinogen Urine 1 mg/dL (Negative); pH Urine 5 (5-7)
[2023-04-23 18:26] LABS: Add Urine Microscopic? YES
[2023-04-23 18:27] LABS: Bacteria Urine 1+ /hpf; Mucus Urine 2+ /hpf
[2023-04-23 18:28] LABS: Add Urine Culture? No; Transitional Epi Cells Urine 0-4 /hpf
--- NOTE | 2023-04-23 18:35 | USR_ITS ---
PROCEDURE INFORMATION: Exam: US Duplex Lower Extremity Veins, Bilateral Exam date and time: 04/23/2023 7:07 PM Age: 67 years old Clinical indication: Edema, localized; Lower extremity, bilateral; Additional info: Dvt TECHNIQUE: Imaging protocol: Real-time duplex ultrasound of the bilateral extremities with 2-D moore scale, color Doppler flow and spectral waveform analysis including responses to compression and other maneuvers (when performed) with image documentation. Complete exam focused on the lower extremity veins. COMPARISON: CT femur RT w con [id number] 04/16/2022 5:46 PM FINDINGS: Right deep veins: Unremarkable. The common femoral, femoral, proximal profunda femoral and popliteal veins are patent without thrombus. Normal Doppler waveforms. Normal compressibility and/or augmentation response. Right superficial veins: Saphenofemoral junction is patent without thrombus. Left deep veins: Unremarkable. The common femoral, femoral, proximal profunda femoral and popliteal veins are patent without thrombus. Normal Doppler waveforms. Normal compressibility and/or augmentation response. Left superficial veins: Saphenofemoral junction is patent without thrombus. Soft tissues: Unremarkable. US/[place] [id number] IMPRESSION: No evidence of deep vein thrombosis.
--- NOTE | 2023-04-23 18:39 | XRR_ITS ---
PROCEDURE INFORMATION: Exam: XR Abdomen Exam date and time: 04/23/2023 6:44 PM Age: 67 years old Clinical indication: Nausea and vomiting; TECHNIQUE: Imaging protocol: Radiologic exam of the abdomen. Views: Frontal supine view of the abdomen. 1 View. COMPARISON: CR (PELVIS, ) 04/23/2023 5:20 PM FINDINGS: Gastrointestinal tract: Normal. No bowel dilation. Organs: There is a Zimmerman catheter in the bladder. Residual contrast is present in the bladder. Bones/joints: Right total hip replacement. Degenerative changes are present in the visualized spine. Degenerative changes extend across the left hip joint. XR/XR KUB portable [id number] IMPRESSION: No acute findings.
--- NOTE | 2023-04-23 18:42 | PM.HP ---
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 Currently patient is not alert or oriented, she has right-sided hemiplegia, she cannot turn her head towards the right, some degree of gaze palsy towards the right, productive aphasia she has spontaneous movement of the left upper and left lower extremity, most of the history was provided by at bedside. Patient tells me that on Mondaye was not feeling well, he tells me that after her knee surgeries, she does not ambulate, she is Trini lift dependent, as she was not feeling well yesterday, he put her in the chair left yesterday, throughout the day she did not eat or drink much throughout Monday, she had some tea, she had some chicken broth, but was not feeling well, and he put her to bed around 1 AM. That was her last known well normal this morning she did wake up at her usual time, so he let her sleep and at about noon or so he tried to wake her up and she was nonresponsive, not moving her right side so he called EMS. According to patient's she has never had a stroke, she has never had atrial fibrillation, currently she is maintaining her airway, on 2 L, her GCS score, she does follow me around the room, when I say her name, to the right and left, she does localize pain, her GCS score is 9, her NIH stroke scale is 21 Review of Systems General: Reports: ROS unobtainable due to medical condition and ROS unobtainable due to mental status Medications/Allergies Home Medications Medication Instructions Recorded Confirmed Last Taken Type amitriptyline 10 mg tablet 20 mg PO BEDTIME ##0 11/28/19 03/15/23 08/04/22 History bupropion HCl 150 mg tablet,12 hr 300 mg PO DAILY ##0 11/28/19 03/15/23 08/04/22 History sustained-release (Wellbutrin SR) diphenhydramine 25 1 tab PO Q6H PRN Pain ##0 11/28/19 03/15/23 11/27/19 History mg-acetaminophen 500 mg tablet (Tylenol PM Extra Strength) fluticasone fur. 100 mcg-umeclid 1 inh inhalation DAILY PRN 11/28/19 03/15/23 Unknown History 62.5 mcg-vilant 25 mcg Shortness Of Breath Or Wheezing inhalat.powder (Trelegy Ellipta) omeprazole 20 mg capsule,delayed 40 mg PO DAILY 11/28/19 03/15/23 08/04/22 History release polyethylene glycol 3350 17 17 g PO DAILY PRN Constipation 11/28/19 03/15/23 Unknown History gram/dose oral powder (Miralax) pregabalin 75 mg capsule (Lyrica) 225 mg PO DAILY 11/28/19 03/15/23 08/04/22 History solifenacin 10 mg tablet 10 mg PO DAILY 11/28/19 03/15/23 08/04/22 History levothyroxine 100 mcg tablet 100 mcg PO DAILY #30 tabs 11/30/19 03/15/23 08/04/22 Rx (Levoxyl) losartan 50 mg tablet 50 mg PO DAILY #30 tabs 11/30/19 03/15/23 08/04/22 Rx fluoxetine 20 mg capsule (Prozac) 20 mg PO DAILY 06/10/21 03/15/23 08/04/22 History fluticasone propionate 115 2 inh inhalation BID #12 grams 04/20/22 03/15/23 Unknown Rx mcg-salmeterol 21 mcg/actuation HFA inhaler (Advair HFA) doxycycline hyclate 100 mg tablet 100 mg PO BID 08/05/22 03/15/23 08/04/22 History prednisone 20 mg tablet 20 mg PO TID #15 tabs 08/05/22 03/15/23 Unknown Rx cephalexin 500 mg capsule 500 mg PO BID #28 caps 10/10/22 03/15/23 Unknown Rx Drop Lock Knee Brace #1 ea 11/16/22 03/15/23 Unknown Rx Knee Immobilizer #1 ea 11/16/22 03/15/23 Unknown Rx sodium chloride 0.9 % irrigation 1 irrig irrigation DAILY wet to 01/25/23 03/15/23 Unknown Rx solution dry dressing #500 mL Allergies Allergy/AdvReac Type Severity Reaction Status Date / Time hydromorphone [From Dilaudid] Allergy Severe makes pt Verified 03/15/23 13:39 pass out oxycodone Allergy Severe hives Verified 03/15/23 13:39 doxycycline Allergy ADR-Vomitin Verified 03/15/23 13:39 g morphine Allergy Unknown Verified 03/15/23 13:39 Opioids - Morphine Analogues Allergy drives Verified 03/15/23 13:39 her up a wall Penicillins Allergy ALGY-Rash Verified 03/15/23 13:39 sulfamethoxazole Allergy ALGY-Rash Verified 03/15/23 13:39 [From Bactrim] trimethoprim [From Bactrim] Allergy ALGY-Rash Verified 03/15/23 13:39 cipro Allergy Intermediate ADR-Nausea Uncoded 03/15/23 13:39 PFSH Acute PFSH: Medical History Anemia COPD (chronic obstructive pulmonary disease) Depression 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 Hypertension Hyponatremia Hypothyroidism Osteoarthritis Overactive bladder Periprosthetic fracture around internal prosthetic knee joint Surgical History History of back surgery History of bilateral knee replacement History of History of hysterectomy History of right hip replacement History of tonsillectomy Hx of cervical spine surgery Family History Other Hypertension Social History Smoking and tobacco status: former smoker Alcohol intake: current Alcohol intake frequency: holidays/special occasions only Substance/Drug Use: never Household members: spouse Marital status: Female Reproductive History: Para: 2 Vitals/I&O/Wt Last Vital Signs Pulse 109 H 04/23/23 17:56 Resp 18 04/23/23 17:56 BP 123/79 04/23/23 17:56 Pulse Ox 98 04/23/23 17:56 Weight last 48 hrs Weight 111.13 kg Physical Exam Const: COMMON NORMALS: no acute distress GENERAL APPEARANCE: well kempt and well developed ORIENTATION/CONSCIOUSNESS: Yes awake and Yes patient obtunded; not oriented to person, not oriented to place, not oriented to time and not confused HENMT: COMMON NORMALS: normocephalic and Normal external nose present HEAD & SCALP: normocephalic FACE & SINUS: normal facial exam NOSE: Normal external nose present Eye: COMMON NORMALS: Equal, round and reactive pupils present, conjunctivae normal and no scleral icterus CONJUNCTIVA: Yes conjunctivae normal PUPIL: Yes Equal, round and reactive pupils present Neck/C-Spine: COMMON NORMALS: full ROM, no lymphadenopathy, no JVD, Thyroid normal and No carotid bruits Lymph: LYMPHATIC: no lymphadenopathy noted Chest: COMMONS NORMALS: normal inspection of the chest Resp: COMMON NORMALS: normal respiratory effort, No retractions, No use of accessory muscles and clear to auscultation bilaterally AUSCULTATION: clear to auscultation bilaterally Cardio: COMMON NORMALS: regular rate, regular rhythm, S1 normal heart sound present, S2 normal heart sound present, No murmurs present (Cardio) and Peripheral pulses 2+ throughout RATE: regular rate RHYTHM: regular rhythm HEART SOUNDS: S1 normal heart sound present and S2 normal heart sound present PERIPHERAL PULSES: Peripheral pulses 2+ throughout GI: COMMON NORMALS: Normal to inspection, nondistended, normoactive bowel sounds present, Soft to palpation and non-tender OTHER: Abdomen is obese : BLADDER/KIDNEY EXAM: Yes no CVA tenderness Back/Pelvis: COMMON NORMALS: no CVA tenderness Extremity: COMMON NORMALS: normal to inspection, full ROM, no calf tenderness and no pedal edema Neuro: OTHER: Gaze palsy to the right Right-sided hemiplegia, Right arm hits the bed Right leg hits the bed Skin: COMMON NORMALS: turgor normal and no jaundice GENERAL SKIN EXAM: turgor normal Urinary Catheter Management: Zimmerman: Cath Placed During This Visit: yes Urinary Catheter Date of Insertion: 04/23/23 Urinary Catheter Time of Insertion: 18:18 Data 04/23/23 17:16 04/23/23 17:16 A&P Assessment and plan (1) Cerebral infarction, left hemisphere: (2) Right arm weakness: (3) Non-fluent aphasia: (4) Hyponatremia: (5) Cerebrovascular accident: (6) Draining cutaneous sinus tract: (7) GERD (gastroesophageal reflux disease): Qualifiers: Esophagitis presence: without esophagitis Qualified Code(s): K21.9 - Gastro-esophageal reflux disease without esophagitis (8) Hypothyroidism: Qualifiers: Hypothyroidism type: acquired Qualified Code(s): E03.9 - Hypothyroidism, unspecified (9) Depression: Qualifiers: Depression Type: unspecified Qualified Code(s): F32.9 - Major depressive disorder, single episode, unspecified (10) Hypertension: Qualifiers: Hypertension type: essential hypertension Qualified Code(s): I10 - Essential (primary) hypertension (11) COPD (chronic obstructive pulmonary disease): Qualifiers: COPD type: chronic bronchitis Chronic bronchitis type: simple Qualified Code(s): J41.0 - Simple chronic bronchitis (12) Goals of care, counseling/discussion: (13) Leukocytosis: (14) Hypoxia: (15) Obesity: Plan Left hemispheric stroke -With right-sided hemiplegia, global aphasia, right-sided extinction -NIH stroke scale 21, GCS 9 -Out of tPA window -CT of the head no acute findings -CTA head and neck no large vessel occlusion Plan -Admit to [facility] -Monitor respiratory status closely monitor mentation -NIH stroke scale, neurochecks, aspiration precautions -Keep n.p.o. -Will perform speech therapy eval -PT OT -IV fluids normal saline at 100 cc -Allow for permissive hypertension treat if systolic greater than 220 diastolic of greater than 120 -Telemetry monitoring -Neurology consulted Hyponatremia -Likely secondary to dehydration -IV fluids. ? Monitor serum sodiums closely. ? Leukocytosis ? CT angiogram of the neck showed diffuse groundglass opacities in lungs, possible aspiration. ? She has used Keflex in the past, start Rocephin and azithromycin. ? 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 On examination, right superior lateral thigh, wound packing in place, wound looks clean and dry, borders look clean and dry. ? We will do a CT of the right hip, and right femur. ? UA unremarkable for UTI. ? Monitor for fevers. -ESR 56, CRP, Pro-Terry pending -KUB Patient according to was reporting feeling unwell for Monday Hypoxia, respiratory therapy eval, on 2 L Hypothyroidism, IV levothyroxine She does have bilateral calf enlargement no tenderness on palpation as her bedbound status I will order a venous ultrasound Goals of care discussion -I had an extensive goals of care discussion with patient's , I discussed possibility of feeding tube placement, he has not made a decision about that yet, I discussed her CODE STATUS, for now he wants her to be a full code, however he does not want her to be indefinitely on any life-sustaining measures -Full code -For DVT prophylaxis Protonix for GI prophylaxis -Protonix Attestations Medical Necessity Statement*: Patient requires hospitalization, inpatient, greater than 2 midnights, for left hemispheric stroke, hyponatremia, leukocytosis, hypoxia, Coding Level of Care Code Acute Code for Chg Fwd Diagnoses Cerebral infarction, left hemisphere I63.9 Right arm weakness R29.898 Non-fluent aphasia R47.01 Hyponatremia E87.1 Cerebrovascular accident I63.9 Draining cutaneous sinus tract L98.8 GERD (gastroesophageal reflux disease) K21.9 Esophagitis presence: without esophagitis Hypothyroidism E03.9 Hypothyroidism type: acquired Depression F32.9 Depression Type: unspecified Hypertension I10 Hypertension type: essential hypertension COPD (chronic obstructive pulmonary disease) J41.0 COPD type: chronic bronchitis Chronic bronchitis type: simple Goals of care, counseling/discussion Z71.89 Leukocytosis D72.829 Hypoxia R09.02 Obesity E66.9
[2023-04-23 18:50] LABS: Erythrocyte Sedimentation Rate 56 mm/hr (0-15)
[2023-04-23 19:06] LABS: Amphetamines Screen Urine Negative (Negative); Barbiturates Screen Urine Negative (Negative); Benzodiazepines Screen Urine Negative (Negative); Cocaine Screen Urine Negative (Negative); Opiate Screen Urine Negative (Negative); PCP Screen Urine Negative (Negative); THC Screen Urine Negative (Negative)
[2023-04-23 19:23] LABS: Ammonia 21 umol/L (11-51)
[2023-04-23 19:38] LABS: Lactic Sepsis W/Reflex 0.8 mmol/L (0.5-2.2)
[2023-04-23 19:40] LABS: Sodium 122 mmol/L (136-145)
[2023-04-23 19:41] LABS: C Reactive Protein 126.8 mg/L (0.0-4.9); Sodium 121 mmol/L (136-145)
[2023-04-23 19:42] VITALS: BP 115/59; PULSE 107; RESP 21; O2SAT 94
[2023-04-23 19:48] LABS: Procalcitonin 0.09 ng/mL (0-0.5)
[2023-04-23] MEDS: aspirin 300 mg Supp PR (21:18)
[2023-04-23] MEDS: pantoprazole 40 mg SDV IVP (21:25)
[2023-04-23] MEDS: enoxaparin 40 mg/0.4 mL Syringe SUBCUT (21:25)
[2023-04-23] MEDS: cefTRIAXone 1,000 MG in sodium chloride 0.9% (plus) 50 ML 100 MG IV (21:25)
[2023-04-23] MEDS: sodium chloride 0.9% 1,000 ML 100 ML IV (21:28)
[2023-04-23 22:00] VITALS: PULSE 109
[2023-04-23] MEDS: azithromycin 500 MG in sodium chloride 0.9% 250 ML 250 MG IV (22:19)
--- NOTE | 2023-04-23 22:48 | CTR_ITS ---
PROCEDURE INFORMATION: Exam: CT Right Lower Extremity With Contrast, Hip Exam date and time: 04/23/2023 10:54 PM Age: 67 years old Clinical indication: Pain; Hip and thigh; Right; Prior surgery; Surgery date: 6+ months; Surgery type: RT pretty. Hysto. Csection. Patient HX: Patient has open wound to distal outer thigh. ; Additional info: Infected joint? Chronic draining sinus TECHNIQUE: Imaging protocol: CT of the right lower extremity with intravenous contrast was performed. Exam focused on the hip. Radiation optimization: All CT scans at this facility use at least one of these dose optimization techniques: automated exposure control; mA and/or kV adjustment per patient size (includes targeted exams where dose is matched to clinical indication); or iterative reconstruction. Contrast material: OMNI 350; Contrast volume: 100 ml; Contrast route: INTRAVENOUS (IV); REPORTING DATA: Count of CT and Cardiac NM exams in prior 12 months: This patient has received 0 known CTs and 0 known cardiac nuclear medicine studies in the 12 months prior to the current study. COMPARISON: CR (PELVIS, ) 04/23/2023 5:20 PM RADIATION DOSE METRICS: Total DLP (mGy-cm): 750.39 FINDINGS: Tubes, catheters and devices: Catheterized urinary bladder. Bones/joints: Subjective bony demineralization. Right total hip prosthesis is in place. No findings of particle disease or prosthetic loosening. There is no bony destructive change. Soft tissues: In the lateral right thigh, there is a thick-walled defect containing debris which may be packing material. The defect extends to the fascia of the muscular layer but does not penetrate through the fascia. The debris-filled cavity measures 4.1 x 1.6 x 2.6 cm. Abdominal wall injection site. Diffuse atrophy of skeletal muscle. Bowel: Rectum is severely distended with fecal debris. CT/CT hip RT w con [id number] IMPRESSION: 1. Right hip prosthesis is intact without evidence of loosening or bony destructive change. 2. There is a thick-walled defect in the right lateral thigh extending to the muscular fascia. Luminal debris may represent packing material but necrotic tissue is not excluded. 3. Severe distension of the rectum with fecal debris. Catheterized urinary bladder.
[2023-04-23 23:19] VITALS: BP 102/66; PULSE 85; RESP 16; TEMP 36.9; O2SAT 97
[2023-04-23 23:56] LABS: Adenovirus Not Detected (NOT DETECT); Chlamydia Pneumoniae Not Detected (NOT DETECT); Coronavirus 229E,HKU1,NL63,OC4 Not Detected (NOT DETECT); Human Metapneumovirus Not Detected (NOT DETECT); Human Rhinovirus/Enterovirus Not Detected (NOT DETECT); Influenza A Not Detected (NOT DETECT); Influenza A H1 Not Detected (NOT DETECT); Influenza A H1-2009 Not Detected (NOT DETECT); Influenza A H3 Not Detected (NOT DETECT); Influenza B Not Detected (NOT DETECT); Mycoplasma Pneumoniae Not Detected (NOT DETECT); Parainfluenza Virus Type 1 Not Detected (NOT DETECT); Parainfluenza Virus Type 2 Not Detected (NOT DETECT); Parainfluenza Virus Type 3 Not Detected (NOT DETECT); Parainfluenza Virus Type 4 Not Detected (NOT DETECT); Respiratory Syncytial Virus A Not Detected (NOT DETECT); Respiratory Syncytial Virus B Not Detected (NOT DETECT); SARS-COV-2 Not Detected (NOT DETECT)
[2023-04-24] VITALS (14 sets, daily range): BP systolic 88–128; BP diastolic 51–79; PULSE 54–109; RESP 17–24; TEMP 36.1–36.8; O2SAT 90–100
[2023-04-24 02:58] LABS: Basophils % 0.2 %; Eosinophils % 0.2 %; Hemoglobin 10.3 g/dL (11.5-15.3); Lymphocytes # 2.3 10^3/uL (0.8-4.8); Lymphocytes % 13.8 %; Mean Corpuscular HGB Conc 32.2 g/dL (30.0-36.0); Mean Corpuscular Hemoglobin 28.3 pg (28.0-34.0); Mean Corpuscular Volume 87.9 fl (81-99); Mean Platelet Volume 10.2 fL (7.4-10.4); Monocytes # 1.3 10^3/uL (0.2-0.9); Monocytes % 8.2 %; Neutrophils # 12.67 10^3/uL (1.8-7.7); Neutrophils % 77.2 %; Nucleated Red Blood Cells % 0 %; Platelet Count 353 10^3/cmm (130-400); Red Blood Count 3.64 10^6/uL (4.1-5.3); Red Cell Distribution Width 13.1 % (12.1-15.1); White Blood Count 16.4 10^3/uL (4.0-10.0)
[2023-04-24 03:13] LABS: Estmated Average Glucose 97
[2023-04-24 03:22] LABS: Anion Gap 13.2 (5-19); Blood Urea Nitrogen 13 mg/dL (8-23); Calcium 8.5 mg/dL (8.5-10.5); Carbon Dioxide 25 mmol/L (22-29); Chloride 92 mmol/L (98-107); Glomerular Filtration Rate 99.1 mL/min (90-130); Glucose 86 mg/dL (65-115); Magnesium 1.6 mg/dL (1.7-2.3); Osmolality Calculated 261 mOsm/kg (285-295); Phosphorus 3.5 mg/dL (2.5-4.5); Potassium 4.2 mmol/L (3.5-5.1); Sodium 126 mmol/L (136-145); Thyroid Stimulating Hormone 7.36 uIU/mL (0.27-4.20)
[2023-04-24 03:23] LABS: Chol HDL Ratio 3.14 mg/dL (0.0-4.40); Cholesterol 132 mg/dL (0-200); HDL Cholesterol 42 mg/dL (60-100); LDL Cholesterol Calculated 77 mg/dL (50-129); LDL HDL Ratio 1.83 RATIO (0.00-3.22); NT Pro B Type Natriuretic Pept 14891 pg/mL (0-125); Sodium 124 mmol/L (136-145); Triglycerides 67 mg/dL (0-150)
--- NOTE | 2023-04-24 06:33 | XR_ITS ---
WS: [id number] EXAMINATION: XR chest 1V portable [id number] REASON FOR EXAM: breathing worse COMPARISON: 04/23/2023 ORDER DATE: 04/24/2023 6:33 AM TECHNIQUE: A single, portable frontal chest x-ray was obtained. X-RAY FINDINGS: The lungs are clear. Pleural spaces are clear. No pleural effusions or pneumothorax. There is elevati on of the right hemidiaphragm. Cardiomediastinal silhouette is normal. No evidence for pulmonary edema. Soft tissue and osseous structures are unremarkable. No tubes or lines are present. There are bilateral Haney type spinal rods in place in the midtho racic region with lower cervical spine fusion change. Prominent degenerative change narrowing is seen at the right glenohumeral joint XR/XR chest 1V portable [id number] IMPRESSION: Unremarkable frontal portable chest x-ray.
--- NOTE | 2023-04-24 06:37 | USCV_ITS ---
Scarlet Tong Age: 67 Gender: F : 1955 Exam Date: 04/24/2023 07:25 Ordering Phys: Cristy Perez MD Technologist: Brown Osorio Exam Location: [facility] [place] Indication: cva fluid overload BP: 132 / 84 HR: 101 Rhythm: Sinus Technical Quality: Adequate MEASUREMENTS (Male / Female) Normal Values 2D ECHO LV Diastolic Diameter PLAX 3.8 cm 4.2 - 5.9 / 3.9 - 5.3 cm LV Systolic Diameter PLAX 2.9 cm IVS Diastolic Thickness 1.1 cm 0.6 - 1.0 / 0.6 - 0.9 cm IVS Systolic Thickness 1.2 cm LVPW Diastolic Thickness 1.2 cm 0.6 - 1.0 / 0.6 - 0.9 cm LVPW Systolic Thickness 1.4 cm LVOT Diameter 2.0 cm LV Ejection Fraction 2D Teich 50.2 % LV Ejection Fraction MOD 2C 67.9 % LV Ejection Fraction 2C AL 66.8 % LA Diameter 3.3 cm M-MODE MV E Point Septal Separation 0.7 cm DOPPLER AV Peak Velocity 144.0 cm/s LVOT Peak Velocity 97.0 cm/s AV Area Cont Eq vti 2.1 cm squared AV Area Cont Eq pk 2.1 cm squared MV Area PHT 5.0 cm squared Mitral E to A Ratio 2.1 MV E' Velocity 44.5 cm/s Mitral E to MV E' Ratio 13.3 Mitral E to LV E' Lateral Ratio 16.1 Mitral E to LV E' Septal Ratio 11.3 TR Peak Velocity 115.3 cm/s TR Peak Gradient 5.3 mmHg TV Peak E Velocity 84.0 cm/s Right Atrial Pressure 3.0 mmHg Pulmonary Artery Systolic Pressu 8.3 mmHg RV Acceleration Time 0.1 s FINDINGS Left Ventricle Technically limited quality echocardiogram because of poor ultrasonic windows. Left ventricle is normal size. Grossly LV systolic function is mildly reduced. Regional wall motion abnormalities cannot be assessed accurately because of poor ultrasonic windows. Right Ventricle Grossly normal in size and function Right Atrium Normal in size Left Atrium Normal in size Mitral Valve Structurally normal mitral valve. Mild mitral regurgitation. Aortic Valve Grossly normal. No significant stenosis or regurgitation. Tricuspid Valve Trace tricuspid regurgitation. Insufficient TR jet to evaluate RVSP. Pulmonic Valve Not well visualized Pericardium Trace pericardial effusion Aorta Normal in size IVC Not well visualized CONCLUSIONS Grossly LV systolic function is mildly reduced. Regional wall motion abnormalities cannot be assessed accurately because of poor ultrasonic windows. Mild mitral regurgitation Trace tricuspid regurgitation Trace pericardial effusion No comparison studies are available. Lucas Rosa MD (Electronically Signed) Final Date: 24 April 2023 17:18 S
[2023-04-24] MEDS: magnesium sulfate premix 2 GM/50 ML PIGGYBACK IV (06:44)
[2023-04-24 06:50] LABS: Glucose Point of Care 88 mg/dL (70-110)
[2023-04-24 07:20] LABS: Free T4 Free Thyroxine 1.37 ng/dL (0.82-1.77); T3 Free 1.3 PG/ML (2.0-4.4)
--- NOTE | 2023-04-24 08:30 | PC.PHAR ---
pt unable to verify medications-called pts thompson [phone] he states he takes care of the pts medications-thompson states the pt gets meds from the mail-thompson states the pt has a amitriptyline rx of 50mg hs (ext shows filled 01/18/23 90d/s) and a 100mg hs pts states the pt is almost out of the 100mg tabs thompson states the pt takes 50-100mg hs-thompson states the pt takes pepcid 40mg bid and prilosec 20mg daily-thompson states the rx bottle of lyrica 75mg has 75mg q8h but states the pt takes 75mg hs-thompson states the pt takes propranolol 10mg daily but states the rx bottle has 20mg daily-notes are made in the pharmacy comments
[2023-04-24] MEDS: albumin 25 G/100 ML VIAL IV (08:52)
[2023-04-24 09:19] LABS: Lactic Sepsis W/Reflex 0.7 mmol/L (0.5-2.2)
[2023-04-24 09:24] LABS: Sodium 125 mmol/L (136-145)
[2023-04-24 09:30] LABS: Troponin(5th) Baseline 406 ng/L (0-10)
--- NOTE | 2023-04-24 09:43 | ECG_ITS ---
[facility] Test Date: 2023-04-24 Pat Name: Scarlet Tong Department: Room: 253 Gender: Female Director Information: : 1955 Requested By: Tima Figueredo Order Number: [id number] Marciano MD: Gay Manley M.D. Measurements Intervals [place] Rate: 54 P: 34 KS: 146 QRS: -34 QRSD: 105 T: -40 QT: 506 QTc: 481 Interpretive Statements SINUS BRADYCARDIA LEFT AXIS DEVIATION [QRS AXIS < -30] LOW QRS VOLTAGE IN PRECORDIAL LEADS [QRS DEFLECTION < 1.0 mV IN CHEST LEADS] ANTEROSEPTAL MYOCARDIAL INFARCTION , PROBABLY RECENT Compared to ECG 04/24/2023 09:51:14 Low QRS voltage now present Myocardial infarct finding now present Sinus tachycardia no longer present T-wave abnormality no longer present Possible ischemia no longer present Electronically Signed On 04-24-2023 21:27:15 CDT by Gay Manley M.D. [id number]
--- NOTE | 2023-04-24 09:51 | ECG_ITS ---
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 Measurements Intervals [place] Rate: 101 P: 40 MN: 161 QRS: -36 QRSD: 100 T: 175 QT: 385 QTc: 501 Interpretive Statements SINUS TACHYCARDIA LEFT AXIS DEVIATION [QRS AXIS < -30] MODERATE T-WAVE ABNORMALITY, CONSIDER ANTEROLATERAL ISCHEMIA [-0.1+ mV T-WAVE IN V3-V6] Compared to ECG 04/23/2023 16:41:26 Sinus rhythm no longer present T-wave abnormality still present Possible ischemia still present Electronically Signed On 04-24-2023 21:07:42 CDT by Gay Manley M.D. [id number]
[2023-04-24 10:11] LABS: ABG PCO2 37.7 mmHg (35-45); ABG PH Result 7.45 (7.35-7.45); Arterial Blood Gas Hematocrit 31.1 % (37-47); Base Excess ABG 2.3 mmol/L (-2.0-2.0); Blood Gas Allen Test Pos; Blood Gas LPM 2.5 %; Blood Gas Operator Identificat BROMA; Blood Gas Sample Site Radial, right; Blood Gas Sample Type Arterial; HCO3 ABG 26.3 mmol/L (22-26); Oxygen Device NC
[2023-04-24 12:24] LABS: Sodium 119 mmol/L (136-145)
[2023-04-24] MEDS: levothyroxine 100 mcg SDV 50 MCG IVP (12:29)
[2023-04-24] MEDS: sodium chloride 0.9% 1,000 ML 75 ML IV (12:50)
[2023-04-24 13:39] LABS: Alanine Aminotransferase 6 U/L (0-33); Albumin Level 2.9 g/dL (3.5-5.2); Alkaline Phosphatase 51 U/L (35-105); Aspartate Amino Transferase 12 U/L (0-32); Blood Urea Nitrogen 15 mg/dL (8-23); Calcium 8.8 mg/dL (8.5-10.5); Carbon Dioxide 25 mmol/L (22-29); Chloride 88 mmol/L (98-107); Globulin 3.2 g/dL (1.3-4.6); Glucose 93 mg/dL (65-115); Osmolality Calculated 253 mOsm/kg (285-295); Sodium 121 mmol/L (136-145); Total Bilirubin 0.3 mg/dL (0.15-1.2); Total Protein 6.1 g/dL (6.6-8.7)
[2023-04-24 13:41] LABS: Anion Gap 11.8 (5-19); Potassium 3.8 mmol/L (3.5-5.1)
--- NOTE | 2023-04-24 14:18 | CT_ITS ---
WS: [id number] CT HEAD TECHNIQUE: Noncontrast CT of the head obtained from the skullbase to the vertex. CLINICAL INFORMATION: ams COMPARISON: None. DLP: 1280.[address] scans at [facility] use at least one of these dose optimization techniques: automated e xposure control; mA and/or kV adjustment per patient size (includes targeted exams where dose is matc hed to clinical indication); or iterative reconstruction. FINDINGS: No evidence of intracranial hemorrhage or mass effect. Ventricular system and basal cisterns are smith nt. Mild small vessel changes with mild parenchymal volume loss. No extra-axial fluid collections. No evidence of mass or mass effect. Intracranial vascular calcification. Paranasal sinuses and mastoid air cells are well aerated. .Normal visualized soft tissues. CT/CT head wo con* [id number] IMPRESSION: 1. No evidence of intracranial hemorrhage or mass effect. 2. Mild small vessel changes with mild parenchymal volume loss. 3. No acute intracranial findings.
--- NOTE | 2023-04-24 14:32 | ECG_ITS ---
[facility] Test Date: 2023-04-24 Pat Name: Scarlet Tong Department: Room: 253 Gender: Female Security Controls Assessor: : 1955 Requested By: Tima Figueredo Order Number: [id number] Marciano MD: Gay Manley M.D. Measurements Intervals [place] Rate: 103 P: 27 DC: 161 QRS: -34 QRSD: 101 T: 151 QT: 329 QTc: 432 Interpretive Statements SINUS TACHYCARDIA LEFT AXIS DEVIATION [QRS AXIS < -30] LOW QRS VOLTAGE IN PRECORDIAL LEADS [QRS DEFLECTION < 1.0 mV IN CHEST LEADS] POSSIBLE ANTERIOR MYOCARDIAL INFARCTION , OF INDETERMINATE AGE [30 ms Q WAVE IN V3/V4, OR R < 0.2 mV IN V4] MODERATE T-WAVE ABNORMALITY, CONSIDER LATERAL ISCHEMIA [-0.1+ mV T-WAVE IN I/aVL/V5/V6] Compared to ECG 04/24/2023 11:35:36 T-wave abnormality now present Possible ischemia now present Sinus bradycardia no longer present Myocardial infarct finding still present Electronically Signed On 04-24-2023 21:25:10 CDT by Gay Manley M.D. [id number]
--- NOTE | 2023-04-24 16:15 | P.PN_ITS ---
Subjective Subjective: - Patient was seen this morning -Overnight there was concerns for respiratory failure, fluid overload -This morning she was seen, she is much more alert and awake -She can follow some commands, she continues to have right-sided hemiplegia -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, receptive aphasia -She does track me better pupils equal round reactive to light -Lung clear to auscultation bilaterally -Attempts were made to place NG tube in the morning but she removed NG tube -Continues to have hyponatremia, repeat serum sodium 119, I suspected that this may be falsely low I repeated it it is now up to 121 -We will continue IV fluids, will try to place an NG tube for free water -She has chronic hyponatremia, as outpatient her serum sodiums ranged from 1 24- 1 32 -We will repeat head CT, repeat head CT no acute findings -I have advised nursing staff to change the packing of the right thigh, CT does not show any tracking to the right hip joint -ESR is 56, Pro-Terry is 128 -Her blood pressures have been soft I placed her in Trendelenburg her systolic blood pressures improved to the 110s, with the remained soft throughout the afternoon, give her a fluid bolus her BNP is elevated at 1400 we will have to monitor her respiratory status closely -Her troponin baseline is 406, no acute ST-T wave changes, cardiac echo ordered, cannot anticoagulate given concerns for large hemispheric stroke and risk of hemorrhagic transformation would avoid for now we will see what echocardiogram shows she has received aspirin -I suspect someone patient's respiratory status is from aspiration we will have to monitor closely, she is on antibiotics, lactic acid within normal limits Vitals/I&O/Wt Last Vital Signs Temp 97.3 F L 04/24/23 16:00 Pulse 107 H 04/24/23 16:00 Resp 18 04/24/23 16:00 BP 103/62 04/24/23 16:00 Pulse Ox 94 04/24/23 16:00 O2 Del Method Room Air 04/24/23 16:00 O2 Flow Rate 2.5 04/24/23 12:39 04/24/23 04/24/23 04/24/23 06:59 14:59 22:59 Intake Total 250 / 300 1128.333 / 1128.333 Output Total 150 / 150 Balance 100 / 150 1128.333 / 1128.333 Weight last 48 hrs Weight 111.13 kg Physical Exam Const: COMMON NORMALS: no acute distress Resp: COMMON NORMALS: normal respiratory effort, No retractions, No use of accessory muscles and clear to auscultation bilaterally AUSCULTATION: clear to auscultation bilaterally Cardio: COMMON NORMALS: regular rate, regular rhythm, S1 normal heart sound present and S2 normal heart sound present RATE: regular rate RHYTHM: regular rhythm HEART SOUNDS: S1 normal heart sound present and S2 normal heart sound present GI: COMMON NORMALS: Normal to inspection, nondistended, normoactive bowel sounds present, Soft to palpation and non-tender PALPATION: Yes Soft to palpation Extremity: COMMON NORMALS: no pedal edema Urinary Catheter Management: Zimmerman: Cath Placed During This Visit: yes Reason for Continuing Indwelling Catheter: Other Urinary Catheter Date of Insertion: 04/23/23 Urinary Catheter Time of Insertion: 18:18 Data 04/24/23 02:47 04/24/23 13:10 Micro: Microbiology 04/23/23 18:57 Blood Culture - Preliminary Blood SPECIMEN COLLECTED 04/23/23 18:53 Blood Culture - Preliminary Blood SPECIMEN COLLECTED A&P Assessment and plan (1) Cerebral infarction, left hemisphere: (2) Right arm weakness: (3) Non-fluent aphasia: (4) Hyponatremia: (5) Cerebrovascular accident: (6) Draining cutaneous sinus tract: (7) GERD (gastroesophageal reflux disease): Qualifiers: Esophagitis presence: without esophagitis Qualified Code(s): K21.9 - Gastro-esophageal reflux disease without esophagitis (8) Hypothyroidism: Qualifiers: Hypothyroidism type: acquired Qualified Code(s): E03.9 - Hypothyroidism, unspecified (9) Depression: Qualifiers: Depression Type: unspecified Qualified Code(s): F32.9 - Major depressive disorder, single episode, unspecified (10) Hypertension: Qualifiers: Hypertension type: essential hypertension Qualified Code(s): I10 - Essential (primary) hypertension (11) COPD (chronic obstructive pulmonary disease): Qualifiers: COPD type: chronic bronchitis Chronic bronchitis type: simple Qualified Code(s): J41.0 - Simple chronic bronchitis (12) Goals of care, counseling/discussion: (13) Leukocytosis: (14) Hypoxia: (15) Obesity: (16) NSTEMI (non-ST elevated myocardial infarction): (17) Hypotension: Plan Left hemispheric stroke -With right-sided hemiplegia, global aphasia, right-sided extinction -NIH stroke scale 21, GCS 9 -Out of tPA window -CT of the head no acute findings -CTA head and neck no large vessel occlusion Plan -Admit to MedSur -Monitor respiratory status closely monitor mentation -NIH stroke scale, neurochecks, aspiration precautions -Keep n.p.o. -Will perform speech therapy eval -PT OT -IV fluids normal saline at 75 cc -Allow for permissive hypertension treat if systolic greater than 220 diastolic of greater than 120 -Telemetry monitoring -Neurology consulted Hyponatremia -Monitor serum sodiums every 4 hours -Likely secondary to dehydration -IV fluids. ? Monitor serum sodiums closely. ? We will avoid hypertonic saline due to concerns for cerebral edema with stroke -Try to place NG tube for free water Leukocytosis, likely secondary to pneumonia ? CT angiogram of the neck showed diffuse groundglass opacities in lungs, likely aspiration pneumonia ? She has used Keflex in the past, coutinue Rocephin and azithromycin. ? 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 On examination, right superior lateral thigh, wound packing in place, wound looks clean and dry, borders look clean and dry. ?CT right hip 1. ? Right hip prosthesis is intact without evidence of loosening or bony destructive change. 2. ? There is a thick-walled defect in the right lateral thigh extending to the muscular fascia. Luminal debris may represent packing material but necrotic tissue is not excluded. ? UA unremarkable for UTI. ? Monitor for fevers. -ESR 56, CRP, Pro-Terry within normal limits Concerns for fluid overload, elevated BNP, monitor as she is on fluid therapy for hyponatremia Hypoxia, respiratory therapy eval, on 2 L Hypothyroidism, IV levothyroxine She does have bilateral calf enlargement no tenderness on palpation as her bedbound status, venous ultrasound negative for DVT NSTEMI -Serial EKGs, serial troponins, telemetry monitoring -cardiac echo -aspirin -Telemetry monitoring -will avoid, therapeutic anticoagulation due to concerns for hemorrhagic transformation given large size CVA Hypotension -likely sec to dehydration lactic acid within normal limits, she is on antibio tic therapy, monitor -Could be a component of cardiogenic, given elevated troponins, cardiac echo pe nding Goals of care discussion -I had an extensive goals of care discussion with patient's , I discussed possibility of feeding tube placement, he has not made a decision about that yet, I discussed her CODE STATUS, for now he wants her to be a full code, however he does not want her to be indefinitely on any life-sustaining measures -Full code -For DVT prophylaxis Protonix for GI prophylaxis -Protonix - Patient was seen this morning -Overnight there was concerns for respiratory failure, fluid overload -This morning she was seen, she is much more alert and awake -She can follow some commands, she continues to have right-sided hemiplegia -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, receptive aphasia -She does track me better pupils equal round reactive to light -Lung clear to auscultation bilaterally -Attempts were made to place NG tube in the morning but she removed NG tube -Continues to have hyponatremia, repeat serum sodium 119, I suspected that this may be falsely low I repeated it it is now up to 121 -We will continue IV fluids, will try to place an NG tube for free water -She has chronic hyponatremia, as outpatient her serum sodiums ranged from 1 24- 1 32 -We will repeat head CT, repeat head CT no acute findings -I have advised nursing staff to change the packing of the right thigh, CT does not show any tracking to the right hip joint -ESR is 56, Pro-Terry is 128 -Her blood pressures have been soft I placed her in Trendelenburg her systolic blood pressures improved to the 110s, with the remained soft throughout the afternoon, give her a fluid bolus her BNP is elevated at 1400 we will have to monitor her respiratory status closely -Her troponin baseline is 406, no acute ST-T wave changes, cardiac echo ordered, cannot anticoagulate given concerns for large hemispheric stroke and risk of hemorrhagic transformation would avoid for now we will see what echocardiogram shows she has received aspirin cardiac echo Attestations Medical Necessity Statement*: Patient requires hospitalization for large CVA with residual right-sided deficits, encephalopathy, NSTEMI,, with pneumonia, with hypotension Diagnoses Cerebral infarction, left hemisphere I63.9 Right arm weakness R29.898 Non-fluent aphasia R47.01 Hyponatremia E87.1 Cerebrovascular accident I63.9 Draining cutaneous sinus tract L98.8 GERD (gastroesophageal reflux disease) K21.9 Esophagitis presence: without esophagitis Hypothyroidism E03.9 Hypothyroidism type: acquired Depression F32.9 Depression Type: unspecified Hypertension I10 Hypertension type: essential hypertension COPD (chronic obstructive pulmonary disease) J41.0 COPD type: chronic bronchitis Chronic bronchitis type: simple Goals of care, counseling/discussion Z71.89 Leukocytosis D72.829 Hypoxia R09.02 Obesity E66.9 NSTEMI (non-ST elevated myocardial infarction) I21.4 Hypotension I95.9
[2023-04-24 16:19] LABS: Sodium 124 mmol/L (136-145)
[2023-04-24 16:23] LABS: Troponin 5 6HR Delta -29.9 ng/L (0-12)
[2023-04-24 16:29] LABS: Troponin 5 6HR 376.1 ng/L (0-10)
--- NOTE | 2023-04-24 20:30 | PC.NURSE ---
pt able to make eye contact, unable to verbalize response with exception of grunts and no , unable to follow commands but PROM WNL to all extremities, unable to follow comads for MCKENNA assessment, right pediatric psychiatrist extremely weaker renetta right pediatric psychiatrist,
[2023-04-24 21:43] LABS: Sodium 125 mmol/L (136-145)
[2023-04-24] MEDS: cefTRIAXone 1,000 MG in sodium chloride 0.9% (plus) 50 ML 100 MG IV (21:47)
[2023-04-24] MEDS: enoxaparin 40 mg/0.4 mL Syringe SUBCUT (21:47)
[2023-04-24] MEDS: aspirin 300 mg Supp PR (21:47)
[2023-04-24] MEDS: pantoprazole 40 mg SDV IVP (21:57)
[2023-04-24] MEDS: azithromycin 500 MG in sodium chloride 0.9% 250 ML 250 MG IV (22:27)
[2023-04-25] VITALS (19 sets, daily range): BP systolic 88–143; BP diastolic 49–86; PULSE 86–123; RESP 16–20; TEMP 36.2–36.8; O2SAT 89–98
[2023-04-25 01:20] LABS: Sodium 129 mmol/L (136-145)
[2023-04-25] MEDS: sodium chloride 0.9% 1,000 ML 75 ML IV ×2 (03:47→16:39)
[2023-04-25 07:19] LABS: Basophils # 0.1 10^3/uL (0.0-0.1); Basophils % 0.6 %; Eosinophils # 0.1 10^3/uL (0.0-0.8); Eosinophils % 0.8 %; Hematocrit 31.5 % (37.0-47.0); Hemoglobin 10.1 g/dL (11.5-15.3); Lymphocytes # 1.8 10^3/uL (0.8-4.8); Mean Corpuscular HGB Conc 32.1 g/dL (30.0-36.0); Mean Corpuscular Hemoglobin 28.9 pg (28.0-34.0); Mean Platelet Volume 10.1 fL (7.4-10.4); Monocytes # 0.9 10^3/uL (0.2-0.9); Monocytes % 9.6 %; Neutrophils # 6.15 10^3/uL (1.8-7.7); Neutrophils % 68.7 %; Nucleated Red Blood Cells % 0 %; Platelet Count 299 10^3/cmm (130-400); Red Cell Distribution Width 13.3 % (12.1-15.1)
[2023-04-25 07:39] LABS: Anion Gap 15.1 (5-19); Blood Urea Nitrogen 12 mg/dL (8-23); Calcium 8.4 mg/dL (8.5-10.5); Carbon Dioxide 27 mmol/L (22-29); Chloride 93 mmol/L (98-107); Glomerular Filtration Rate 99.1 mL/min (90-130); Glucose 70 mg/dL (65-115); Osmolality Calculated 270 mOsm/kg (285-295); Phosphorus 2.9 mg/dL (2.5-4.5); Potassium 4.1 mmol/L (3.5-5.1); Sodium 131 mmol/L (136-145)
[2023-04-25] MEDS: levothyroxine 100 mcg SDV 50 MCG IVP (10:16)
[2023-04-25 11:36] LABS: Sodium 131 mmol/L (136-145)
--- NOTE | 2023-04-25 16:30 | PM.PN ---
Subjective Subjective: Patient was seen this morning, her is at bedside, she is much more alert, awake, to person, not to place, not to time, but she can follow commands she is much more receptive, she continues to have slurring of her words, but she is able to say her name, still has productive aphasia trouble coming up with words, at times word salad, she does have spontaneous movement of her right upper right lower extremities, she points at me she can wiggle her toes but continues to have diminished strength, she is work with speech therapy, I had an extensive discussion with the patient, and her about her stroke, my concern for aspiration given her pneumonia, I am going to wait and do a marrow to 5 barium swallow tomorrow, continue sure that she does not aspirate, in addition we had a detailed discussion about her hyponatremia and her IV fluids, which is improving, and in addition we had a discussion about her NSTEMI her echocardiogram findings, for now we will medically manage, but anticoagulation given the size of her stroke has significant risks, including but not limited to hemorrhagic transformation, and I would hold off on anticoagulation for now we will do aspirin for now, when she can swallow we can certainly start her on a beta-tapan and a statin, voiced understanding, all questions answered, agreed to proceed Vitals/I&O/Wt Last Vital Signs Temp 98.2 F 04/25/23 15:55 Pulse 105 H 04/25/23 15:55 Resp 18 04/25/23 15:55 BP 143/76 04/25/23 15:55 Pulse Ox 93 04/25/23 15:55 O2 Del Method Room Air 04/25/23 15:55 O2 Flow Rate 2.5 04/24/23 12:39 04/25/23 04/25/23 04/25/23 06:59 14:59 22:59 Intake Total 1250 / 2428.333 Balance 1250 / 1878.333 Weight last 48 hrs Weight 111.13 kg Physical Exam Const: COMMON NORMALS: no acute distress Resp: COMMON NORMALS: normal respiratory effort, No retractions, No use of accessory muscles and clear to auscultation bilaterally AUSCULTATION: clear to auscultation bilaterally Cardio: COMMON NORMALS: regular rate, regular rhythm, S1 normal heart sound present and S2 normal heart sound present RATE: regular rate RHYTHM: regular rhythm HEART SOUNDS: S1 normal heart sound present and S2 normal heart sound present GI: COMMON NORMALS: Normal to inspection, nondistended, normoactive bowel sounds present and non-tender Extremity: COMMON NORMALS: no pedal edema Psych: COMMON NORMALS: mental status grossly normal Urinary Catheter Management: Zimmerman: Cath Placed During This Visit: yes Reason for Continuing Indwelling Catheter: Acute Urinary Retention or Obstruction Urinary Catheter Date of Insertion: 04/23/23 Urinary Catheter Time of Insertion: 18:18 Data 04/25/23 06:50 04/25/23 10:57 Micro: Microbiology 04/23/23 18:57 Blood Culture - Preliminary Blood NEGATIVE TO DATE 04/23/23 18:53 Blood Culture - Preliminary Blood NEGATIVE TO DATE A&P Assessment and plan (1) Cerebral infarction, left hemisphere: (2) Right arm weakness: (3) Non-fluent aphasia: (4) Hyponatremia: (5) Cerebrovascular accident: (6) Draining cutaneous sinus tract: (7) GERD (gastroesophageal reflux disease): Qualifiers: Esophagitis presence: without esophagitis Qualified Code(s): K21.9 - Gastro-esophageal reflux disease without esophagitis (8) Hypothyroidism: Qualifiers: Hypothyroidism type: acquired Qualified Code(s): E03.9 - Hypothyroidism, unspecified (9) Depression: Qualifiers: Depression Type: unspecified Qualified Code(s): F32.9 - Major depressive disorder, single episode, unspecified (10) Hypertension: Qualifiers: Hypertension type: essential hypertension Qualified Code(s): I10 - Essential (primary) hypertension (11) COPD (chronic obstructive pulmonary disease): Qualifiers: COPD type: chronic bronchitis Chronic bronchitis type: simple Qualified Code(s): J41.0 - Simple chronic bronchitis (12) Goals of care, counseling/discussion: (13) Leukocytosis: (14) Hypoxia: (15) Obesity: (16) NSTEMI (non-ST elevated myocardial infarction): (17) Hypotension: Plan Left hemispheric stroke -With right-sided hemiplegia, global aphasia, right-sided extinction -NIH stroke scale 21, GCS 9 -Out of tPA window -CT of the head no acute findings -CTA head and neck no large vessel occlusion Plan -Admit to MedSur -Monitor respiratory status closely monitor mentation -NIH stroke scale, neurochecks, aspiration precautions -Keep n.p.o. modified barium swallow tomorrow -Will perform speech therapy eval -PT OT -IV fluids normal saline at 75 cc -Allow for permissive hypertension treat if systolic greater than 220 diastolic of greater than 120 -Telemetry monitoring -Neurology consulted Hyponatremia, resolved -Likely secondary to dehydration -IV fluids. ? Monitor serum sodiums closely. Leukocytosis, likely secondary to pneumonia ? CT angiogram of the neck showed diffuse groundglass opacities in lungs, likely aspiration pneumonia ? She has used Keflex in the past, coutinue Rocephin and azithromycin. ? 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 On examination, right superior lateral thigh, wound packing in place, wound looks clean and dry, borders look clean and dry. ?CT right hip 1. ? Right hip prosthesis is intact without evidence of loosening or bony destructive change. 2. ? There is a thick-walled defect in the right lateral thigh extending to the muscular fascia. Luminal debris may represent packing material but necrotic tissue is not excluded. ? UA unremarkable for UTI. ? Monitor for fevers. -ESR 56, CRP, Pro-Terry within normal limits Concerns for fluid overload, elevated BNP, monitor as she is on fluid therapy for hyponatremia Hypoxia, respiratory therapy eval, on 2 L Hypothyroidism, IV levothyroxine She does have bilateral calf enlargement no tenderness on palpation as her bedbound status, venous ultrasound negative for DVT NSTEMI -Serial EKGs, serial troponins, telemetry monitoring -cardiac echo Grossly LV systolic function is mildly reduced. Regional wall ?motion abnormalities cannot be assessed accurately because of ?poor ultrasonic windows. ?Mild mitral regurgitation ?Trace tricuspid regurgitation ?Trace pericardial effusion ?No comparison studies are available. -aspirin -Telemetry monitoring -will avoid, therapeutic anticoagulation due to concerns for hemorrhagic transformation given large size CVA Hypotension -likely sec to dehydration lactic acid within normal limits, she is on antibiotic therapy, monitor Goals of care discussion -I had an extensive goals of care discussion with patient's , I discussed possibility of feeding tube placement, he has not made a decision about that yet, I discussed her CODE STATUS, for now he wants her to be a full code, however he does not want her to be indefinitely on any life-sustaining measures -Full code -For DVT prophylaxis Protonix for GI prophylaxis -Protonix Plan for today, PT OT, speech therapy eval, continue aspirin, continue IV fluids, telemetry monitoring, had extensive discussion with patient, , nursing staff, Attestations Medical Necessity Statement*: Patient requires hospitalization for CVA, NSTEMI, hyponatremia, Coding Level of Care Code 31002 High Time for a total of 70 minutes, includes reviewing past or interval history, examining/interviewing patient, placing orders, counseling patient/family/other support, updating patient/family/other support, discussing plan of care with staff, communicating with other healthcare providers, documenting encounter and coordinating care Diagnoses Cerebral infarction, left hemisphere I63.9 Right arm weakness R29.898 Non-fluent aphasia R47.01 Hyponatremia E87.1 Cerebrovascular accident I63.9 Draining cutaneous sinus tract L98.8 GERD (gastroesophageal reflux disease) K21.9 Esophagitis presence: without esophagitis Hypothyroidism E03.9 Hypothyroidism type: acquired Depression F32.9 Depression Type: unspecified Hypertension I10 Hypertension type: essential hypertension COPD (chronic obstructive pulmonary disease) J41.0 COPD type: chronic bronchitis Chronic bronchitis type: simple Goals of care, counseling/discussion Z71.89 Leukocytosis D72.829 Hypoxia R09.02 Obesity E66.9 NSTEMI (non-ST elevated myocardial infarction) I21.4 Hypotension I95.9
[2023-04-25] MEDS: acetaminophen 1,000 MG/100 ML PIGGYBACK 400 MG IV (20:47)
[2023-04-25] MEDS: cefTRIAXone 1,000 MG in sodium chloride 0.9% (plus) 50 ML 100 MG IV (21:08)
[2023-04-25] MEDS: enoxaparin 40 mg/0.4 mL Syringe SUBCUT (21:10)
[2023-04-25] MEDS: azithromycin 500 MG in sodium chloride 0.9% 250 ML 250 MG IV (21:44)
[2023-04-25] MEDS: aspirin 300 mg Supp PR (21:48)
[2023-04-25] MEDS: pantoprazole 40 mg SDV IVP (21:52)
[2023-04-26] VITALS (13 sets, daily range): BP systolic 117–148; BP diastolic 72–91; PULSE 67–122; RESP 15–18; TEMP 36.6–37; O2SAT 94–98
[2023-04-26] MEDS: sodium chloride 0.9% 1,000 ML 75 ML IV ×2 (05:24→20:09)
[2023-04-26] MEDS: levothyroxine 100 mcg SDV 50 MCG IVP (09:26)
--- NOTE | 2023-04-26 10:30 | FL_ITS ---
WS: [id number] EXAMINATION: FL barium swallow modifd [id number] REASON FOR EXAM: Oral dysphagia history of stroke ORDER DATE: 04/26/2023 1:41 PM FLUOROSCOPY TIME: 1min [id number] # OF SPOT FILMS: TECHNIQUE: The oral cavity and upper pharyngeal and laryngeal region were observed in the lateral pro jection with fluoroscopy during swallowing. Different consistencies of liquid and food were mixed with barium and administered by the speech path ologist during fluoroscopy. FINDINGS: The oral stage was unremarkable with satisfactory initiation of the swallowing reflex. Mov ement of contrast coated material through the pharynx into the upper esophagus was observed. There wa s possibly penetration on thin liquids. Please refer to speech pathologist report for specific detail s regarding swallowing function. There was no significant residual FL/FL barium swallow modifd [id number] IMPRESSION: PLEASE REFER TO THE SPEECH PATHOLOGIST REPORT FOR ADDITIONAL DETAILS REGARDING THIS MODIFIED BARIUM SWALLOW STUDY.
--- NOTE | 2023-04-26 11:53 | PC.SOCIAL ---
Pg 2 IMM Explained to pt & her , Pg 2 IMM. No questions voiced. Provided pt a copy. Initialed, dated, & timed a copy & placed in chart.
[2023-04-26 11:54] LABS: Basophils % 0.4 %; Eosinophils % 0.4 %; Hematocrit 30.9 % (37.0-47.0); Hemoglobin 9.8 g/dL (11.5-15.3); Lymphocytes # 1.9 10^3/uL (0.8-4.8); Lymphocytes % 17.9 %; Mean Corpuscular HGB Conc 31.7 g/dL (30.0-36.0); Mean Corpuscular Hemoglobin 28.2 pg (28.0-34.0); Mean Platelet Volume 10.7 fL (7.4-10.4); Monocytes # 0.9 10^3/uL (0.2-0.9); Monocytes % 8.4 %; Neutrophils # 7.57 10^3/uL (1.8-7.7); Neutrophils % 72.3 %; Nucleated Red Blood Cells % 0 %; Platelet Count 327 10^3/cmm (130-400); Red Blood Count 3.47 10^6/uL (4.1-5.3); Red Cell Distribution Width 13.2 % (12.1-15.1); White Blood Count 10.5 10^3/uL (4.0-10.0)
[2023-04-26 12:43] LABS: Blood Urea Nitrogen 10 mg/dL (8-23); Carbon Dioxide 21 mmol/L (22-29); Chloride 97 mmol/L (98-107); Glomerular Filtration Rate 122.3 mL/min (90-130); Glucose 79 mg/dL (65-115); Magnesium 1.9 mg/dL (1.7-2.3); Osmolality Calculated 274 mOsm/kg (285-295); Phosphorus 2.3 mg/dL (2.5-4.5); Sodium 133 mmol/L (136-145)
--- NOTE | 2023-04-26 13:37 | P.PN_ITS ---
Subjective Subjective: This morning patient was seen, she continues to have slurring of her words, productive aphasia, word finding difficulty, her upper extremity strength is improving, her right lower extremity strength she can still wiggle her toes, no fevers overnight, at bedside, she is awaiting her modified barium swallow test, she recognizes she is in the hospital, I have to remove repeat to her that she is here for stroke, Vitals/I&O/Wt Last Vital Signs Temp 98.6 F 04/26/23 11:30 Pulse 82 04/26/23 11:30 Resp 15 04/26/23 11:30 BP 121/72 04/26/23 11:30 Pulse Ox 96 04/26/23 11:30 O2 Del Method Room Air 04/26/23 11:30 O2 Flow Rate 2 04/26/23 08:00 04/25/23 04/26/23 04/26/23 22:59 06:59 14:59 Intake Total 1115 / 1115 1206.25 / 2321.25 Output Total 400 / 400 250 / 650 Balance 715 / 715 956.25 / 1671.25 Physical Exam Const: COMMON NORMALS: no acute distress ORIENTATION/CONSCIOUSNESS: Yes awake and Yes oriented to person; not oriented to place and not oriented to time Resp: COMMON NORMALS: normal respiratory effort, No retractions, No use of accessory muscles and clear to auscultation bilaterally AUSCULTATION: clear to auscultation bilaterally Cardio: COMMON NORMALS: regular rate, regular rhythm, S1 normal heart sound present and S2 normal heart sound present RATE: regular rate RHYTHM: regular rhythm HEART SOUNDS: S1 normal heart sound present and S2 normal heart sound present GI: COMMON NORMALS: Normal to inspection, nondistended, normoactive bowel sounds present and non-tender Extremity: COMMON NORMALS: no pedal edema Neuro: SENSORIUM/ORIENTATION: Yes oriented to person, No oriented to place and No oriented to time Psych: COMMON NORMALS: mental status grossly normal Urinary Catheter Management: Zimmerman: Cath Placed During This Visit: yes Reason for Continuing Indwelling Catheter: Acute Urinary Retention or Obstruction Urinary Catheter Date of Insertion: 04/23/23 Urinary Catheter Time of Insertion: 18:18 Data 04/26/23 11:09 04/26/23 11:09 A&P Assessment and plan (1) Cerebral infarction, left hemisphere: (2) Right arm weakness: (3) Non-fluent aphasia: (4) Hyponatremia: (5) Cerebrovascular accident: (6) Draining cutaneous sinus tract: (7) GERD (gastroesophageal reflux disease): Qualifiers: Esophagitis presence: without esophagitis Qualified Code(s): K21.9 - G negar-esophageal reflux disease without esophagitis (8) Hypothyroidism: Qualifiers: Hypothyroidism type: acquired Qualified Code(s): E03.9 - Hypothyroidism, unspecified (9) Depression: Qualifiers: Depression Type: unspecified Qualified Code(s): F32.9 - Major depressive disorder, single episode, unspecified (10) Hypertension: Qualifiers: Hypertension type: essential hypertension Qualified Code(s): I10 - Essential (primary) hypertension (11) COPD (chronic obstructive pulmonary disease): Qualifiers: COPD type: chronic bronchitis Chronic bronchitis type: simple Qualified Code(s): J41.0 - Simple chronic bronchitis (12) Goals of care, counseling/discussion: (13) Leukocytosis: (14) Hypoxia: (15) Obesity: (16) NSTEMI (non-ST elevated myocardial infarction): (17) Hypotension: Plan Left hemispheric stroke -With right-sided hemiplegia, global aphasia, right-sided extinction -NIH stroke scale 21, GCS 9 -Out of tPA window -CT of the head no acute findings -CTA head and neck no large vessel occlusion Plan -Admit to [facility] -Monitor respiratory status closely monitor mentation -NIH stroke scale, neurochecks, aspiration precautions -Keep n.p.o. modified barium swallow today, advance diet as per results -Will perform speech therapy eval -PT OT -IV fluids normal saline at 75 cc -Allow for permissive hypertension treat if systolic greater than 220 diastolic of greater than 120 -Telemetry monitoring -Neurology consulted Hyponatremia, resolved -Likely secondary to dehydration -IV fluids. ? Monitor serum sodiums closely. Leukocytosis, likely secondary to pneumonia ? CT angiogram of the neck showed diffuse groundglass opacities in lungs, likely aspiration pneumonia ? She has used Keflex in the past, coutinue Rocephin and azithromycin. ? 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 On examination, right superior lateral thigh, wound packing in place, wound looks clean and dry, borders look clean and dry. ?CT right hip 1. ? Right hip prosthesis is intact without evidence of loosening or bony destructive change. 2. ? There is a thick-walled defect in the right lateral thigh extending to the muscular fascia. Luminal debris may represent packing material but necrotic tissue is not excluded. ? UA unremarkable for UTI. ? Monitor for fevers. -ESR 56, CRP, Pro-Terry within normal limits Concerns for fluid overload, elevated BNP, monitor as she is on fluid therapy for hyponatremia Hypoxia, respiratory therapy eval, on 2 L Hypothyroidism, IV levothyroxine She does have bilateral calf enlargement no tenderness on palpation as her bedbound status, venous ultrasound negative for DVT NSTEMI -Serial EKGs, serial troponins, telemetry monitoring -cardiac echo Grossly LV systolic function is mildly reduced. Regional wall ?motion abnormalities cannot be assessed accurately because of ?poor ultrasonic windows. ?Mild mitral regurgitation ?Trace tricuspid regurgitation ?Trace pericardial effusion ?No comparison studies are available. -aspirin -Telemetry monitoring -will avoid, therapeutic anticoagulation due to concerns for hemorrhagic transformation given large size CVA Hypotension -likely sec to dehydration lactic acid within normal limits, she is on antibiotic therapy, monitor Goals of care discussion -I had an extensive goals of care discussion with patient's , I discussed possibility of feeding tube placement, he has not made a decision about that yet, I discussed her CODE STATUS, for now he wants her to be a full code, however he does not want her to be indefinitely on any life-sustaining measures -Full code -For DVT prophylaxis Protonix for GI prophylaxis -Protonix Plan for today, PT OT, speech therapy eval, continue aspirin, continue IV fluids, telemetry monitoring, had extensive discussion with patient, , nursing staff, Attestations Medical Necessity Statement*: Patient requires hospitalization for acute CVA Diagnoses Cerebral infarction, left hemisphere I63.9 Right arm weakness R29.898 Non-fluent aphasia R47.01 Hyponatremia E87.1 Cerebrovascular accident I63.9 Draining cutaneous sinus tract L98.8 GERD (gastroesophageal reflux disease) K21.9 Esophagitis presence: without esophagitis Hypothyroidism E03.9 Hypothyroidism type: acquired Depression F32.9 Depression Type: unspecified Hypertension I10 Hypertension type: essential hypertension COPD (chronic obstructive pulmonary disease) J41.0 COPD type: chronic bronchitis Chronic bronchitis type: simple Goals of care, counseling/discussion Z71.89 Leukocytosis D72.829 Hypoxia R09.02 Obesity E66.9 NSTEMI (non-ST elevated myocardial infarction) I21.4 Hypotension I95.9
[2023-04-26] MEDS: pantoprazole 40 mg SDV IVP (20:10)
[2023-04-26] MEDS: cefTRIAXone 1,000 MG in sodium chloride 0.9% (plus) 50 ML 100 MG IV (20:10)
[2023-04-26] MEDS: enoxaparin 40 mg/0.4 mL Syringe SUBCUT (20:10)
[2023-04-26] MEDS: aspirin 81 mg EC Tablet PO (20:50)
[2023-04-26] MEDS: azithromycin 500 MG in sodium chloride 0.9% 250 ML 250 MG IV (20:50)
[2023-04-27] VITALS (12 sets, daily range): BP systolic 107–146; BP diastolic 73–95; PULSE 93–114; RESP 17–21; TEMP 35.5–36.7; O2SAT 93–100
[2023-04-27 05:53] LABS: Basophils % 0.6 %; Eosinophils # 0.1 10^3/uL (0.0-0.8); Hematocrit 30.7 % (37.0-47.0); Hemoglobin 9.3 g/dL (11.5-15.3); Lymphocytes # 1.7 10^3/uL (0.8-4.8); Lymphocytes % 25.4 %; Mean Corpuscular HGB Conc 30.3 g/dL (30.0-36.0); Mean Corpuscular Volume 92.5 fl (81-99); Mean Platelet Volume 10.4 fL (7.4-10.4); Monocytes # 0.6 10^3/uL (0.2-0.9); Monocytes % 8.9 %; Neutrophils # 4.37 10^3/uL (1.8-7.7); Neutrophils % 63.8 %; Nucleated Red Blood Cells % 0 %; Platelet Count 300 10^3/cmm (130-400); Red Blood Count 3.32 10^6/uL (4.1-5.3); Red Cell Distribution Width 13.2 % (12.1-15.1); White Blood Count 6.9 10^3/uL (4.0-10.0)
[2023-04-27 06:19] LABS: Alanine Aminotransferase 8 U/L (0-33); Albumin Level 2.9 g/dL (3.5-5.2); Alkaline Phosphatase 51 U/L (35-105); Blood Urea Nitrogen 9 mg/dL (8-23); Calcium 8.4 mg/dL (8.5-10.5); Carbon Dioxide 20 mmol/L (22-29); Chloride 100 mmol/L (98-107); Globulin 2.5 g/dL (1.3-4.6); Glomerular Filtration Rate 122.3 mL/min (90-130); Glucose 76 mg/dL (65-115); Osmolality Calculated 275 mOsm/kg (285-295); Sodium 134 mmol/L (136-145); Total Bilirubin 0.2 mg/dL (0.15-1.2); Total Protein 5.4 g/dL (6.6-8.7)
[2023-04-27 06:21] LABS: Anion Gap 18.1 (5-19); Aspartate Amino Transferase 15 U/L (0-32); Potassium 4.1 mmol/L (3.5-5.1)
[2023-04-27] MEDS: levothyroxine 100 mcg SDV 50 MCG IVP (10:22)
--- NOTE | 2023-04-27 17:14 | PM.PN ---
Subjective Subjective: Patient was seen this morning, at bedside she is alert to person she does have productive aphasia but it is improving, her word finding difficulty is present, she did not have such a good breakfast her tells me she is on a dysphagia diet did not try again this afternoon, my worry is is that as she is on a dysphagia diet, with her productive aphasia I want a watch her for another 24 hours due to risk of aspiration and my other concern is for adequate calorie intake, I will to make sure that she can adequately take in the calories that she needs, agreeable to monitor for another 24 hours, consult speech therapy, consult dietary, spoke to patient, spoke to at bedside spoke to nursing staff, spoke to be therapy Vitals/I&O/Wt Last Vital Signs Temp 98.0 F 04/27/23 16:00 Pulse 114 H 04/27/23 16:00 Resp 21 H 04/27/23 16:00 BP 139/83 04/27/23 16:00 Pulse Ox 94 04/27/23 16:00 O2 Del Method Room Air 04/27/23 08:35 O2 Flow Rate 2 04/26/23 08:00 04/27/23 04/27/23 04/27/23 06:59 14:59 22:59 Intake Total 1120 / 1120 Output Total 250 / 250 Balance -250 / 1050 1120 / 1120 Physical Exam Const: COMMON NORMALS: no acute distress Resp: COMMON NORMALS: normal respiratory effort, No retractions, No use of accessory muscles and clear to auscultation bilaterally AUSCULTATION: clear to auscultation bilaterally Cardio: COMMON NORMALS: regular rate, regular rhythm, S1 normal heart sound present and S2 normal heart sound present RATE: regular rate RHYTHM: regular rhythm HEART SOUNDS: S1 normal heart sound present and S2 normal heart sound present GI: COMMON NORMALS: Normal to inspection, nondistended, normoactive bowel sounds present and non-tender Extremity: COMMON NORMALS: no pedal edema Urinary Catheter Management: Zimmerman: Cath Placed During This Visit: yes Reason for Continuing Indwelling Catheter: Acute Urinary Retention or Obstruction Urinary Catheter Date of Insertion: 04/23/23 Urinary Catheter Time of Insertion: 18:18 Data 04/27/23 05:30 04/27/23 05:30 A&P Assessment and plan (1) Cerebral infarction, left hemisphere: (2) Right arm weakness: (3) Non-fluent aphasia: (4) Hyponatremia: (5) Cerebrovascular accident: (6) Draining cutaneous sinus tract: (7) GERD (gastroesophageal reflux disease): Qualifiers: Esophagitis presence: without esophagitis Qualified Code(s): K21.9 - Gastro-esophageal reflux disease without esophagitis (8) Hypothyroidism: Qualifiers: Hypothyroidism type: acquired Qualified Code(s): E03.9 - Hypothyroidism, unspecified (9) Depression: Qualifiers: Depression Type: unspecified Qualified Code(s): F32.9 - Major depressive disorder, single episode, unspecified (10) Hypertension: Qualifiers: Hypertension type: essential hypertension Qualified Code(s): I10 - Essential (primary) hypertension (11) COPD (chronic obstructive pulmonary disease): Qualifiers: COPD type: chronic bronchitis Chronic bronchitis type: simple Qualified Code(s): J41.0 - Simple chronic bronchitis (12) Goals of care, counseling/discussion: (13) Leukocytosis: (14) Hypoxia: (15) Obesity: (16) NSTEMI (non-ST elevated myocardial infarction): (17) Hypotension: Plan Left hemispheric stroke -With right-sided hemiplegia, global aphasia, right-sided extinction -NIH stroke scale 21, GCS 9 -Out of tPA window -CT of the head no acute findings -CTA head and neck no large vessel occlusion Plan -Admit to [facility] -Monitor respiratory status closely monitor mentation -NIH stroke scale, neurochecks, aspiration precautions -Dysphagia diet -Will perform speech therapy eval -Allow for permissive hypertension treat if systolic greater than 220 diastolic of greater than 120 -Telemetry monitoring -Neurology consulted Hyponatremia, resolved -Likely secondary to dehydration ? Monitor serum sodiums closely. Leukocytosis, likely secondary to pneumonia ? CT angiogram of the neck showed diffuse groundglass opacities in lungs, likely aspiration pneumonia ? She has used Keflex in the past, cefdinir ? 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 On examination, right superior lateral thigh, wound packing in place, wound looks clean and dry, borders look clean and dry. ?CT right hip 1. ? Right hip prosthesis is intact without evidence of loosening or bony destructive change. 2. ? There is a thick-walled defect in the right lateral thigh extending to the muscular fascia. Luminal debris may represent packing material but necrotic tissue is not excluded. ? UA unremarkable for UTI. ? Monitor for fevers. -ESR 56, CRP, Pro-Terry within normal limits Concerns for fluid overload, elevated BNP, monitor as she is on fluid therapy for hyponatremia Hypoxia, respiratory therapy eval, on 2 L Hypothyroidism, p.o. levothyroxine She does have bilateral calf enlargement no tenderness on palpation as her bedbound status, venous ultrasound negative for DVT NSTEMI -Serial EKGs, serial troponins, telemetry monitoring -cardiac echo Grossly LV systolic function is mildly reduced. Regional wall ?motion abnormalities cannot be assessed accurately because of ?poor ultrasonic windows. ?Mild mitral regurgitation ?Trace tricuspid regurgitation ?Trace pericardial effusion ?No comparison studies are available. -aspirin -Telemetry monitoring -will avoid, therapeutic anticoagulation due to concerns for hemorrhagic transformation given large size CVA Hypotension -likely sec to dehydration lactic acid within normal limits, she is on antibiotic therapy, monitor Goals of care discussion -I had an extensive goals of care discussion with patient's , I discussed possibility of feeding tube placement, he has not made a decision about that yet, I discussed her CODE STATUS, for now he wants her to be a full code, however he does not want her to be indefinitely on any life-sustaining measures -Full code -For DVT prophylaxis Protonix for GI prophylaxis -Protonix Plan for today, Patient was seen this morning, at bedside she is alert to person she does have productive aphasia but it is improving, her word finding difficulty is present, she did not have such a good breakfast her tells me she is on a dysphagia diet did not try again this afternoon, my worry is is that as she is on a dysphagia diet, with her productive aphasia I want a watch her for another 24 hours due to risk of aspiration and my other concern is for adequate calorie intake, I will to make sure that she can adequately take in the calories that she needs, agreeable to monitor for another 24 hours, consult speech therapy, consult dietary, spoke to patient, spoke to at bedside spoke to nursing staff, spoke to be therapy Attestations Medical Necessity Statement*: Patient requires hospitalization for CVA Diagnoses Cerebral infarction, left hemisphere I63.9 Right arm weakness R29.898 Non-fluent aphasia R47.01 Hyponatremia E87.1 Cerebrovascular accident I63.9 Draining cutaneous sinus tract L98.8 GERD (gastroesophageal reflux disease) K21.9 Esophagitis presence: without esophagitis Hypothyroidism E03.9 Hypothyroidism type: acquired Depression F32.9 Depression Type: unspecified Hypertension I10 Hypertension type: essential hypertension COPD (chronic obstructive pulmonary disease) J41.0 COPD type: chronic bronchitis Chronic bronchitis type: simple Goals of care, counseling/discussion Z71.89 Leukocytosis D72.829 Hypoxia R09.02 Obesity E66.9 NSTEMI (non-ST elevated myocardial infarction) I21.4 Hypotension I95.9
[2023-04-27] MEDS: aspirin 325 mg EC Tablet PO (18:08)
[2023-04-27] MEDS: cefdinir 300 MG CAPSULE PO (18:08)
[2023-04-27] MEDS: enoxaparin 40 mg/0.4 mL Syringe SUBCUT (21:17)
[2023-04-27] MEDS: atorvastatin 40 mg Tablet PO (21:17)
[2023-04-27] MEDS: pantoprazole 40 mg SDV IVP (21:17)
[2023-04-27] MEDS: pregabalin 75 mg Capsule PO (21:17)
[2023-04-28 02:41] VITALS: PULSE 93; RESP 16; O2SAT 95
[2023-04-28 03:30] VITALS: BP 104/67; PULSE 94; RESP 16; TEMP 36.8; O2SAT 95
[2023-04-28] MEDS: levothyroxine 200 mcg Tablet PO (05:22)
[2023-04-28 05:37] VITALS: PULSE 94
[2023-04-28 05:53] LABS: Basophils # 0.1 10^3/uL (0.0-0.1); Basophils % 0.7 %; Eosinophils # 0.2 10^3/uL (0.0-0.8); Eosinophils % 2.2 %; Hematocrit 31.8 % (37.0-47.0); Hemoglobin 9.9 g/dL (11.5-15.3); Lymphocytes # 2.2 10^3/uL (0.8-4.8); Lymphocytes % 32.5 %; Mean Corpuscular HGB Conc 31.1 g/dL (30.0-36.0); Mean Corpuscular Hemoglobin 28.3 pg (28.0-34.0); Mean Corpuscular Volume 90.9 fl (81-99); Mean Platelet Volume 10.2 fL (7.4-10.4); Monocytes # 0.7 10^3/uL (0.2-0.9); Neutrophils % 54.3 %; Nucleated Red Blood Cells % 0 %; Platelet Count 312 10^3/cmm (130-400); Red Cell Distribution Width 13.4 % (12.1-15.1); White Blood Count 6.8 10^3/uL (4.0-10.0)
[2023-04-28 06:24] LABS: Alanine Aminotransferase 8 U/L (0-33); Alkaline Phosphatase 50 U/L (35-105); Aspartate Amino Transferase 14 U/L (0-32); Blood Urea Nitrogen 8 mg/dL (8-23); Calcium 8.3 mg/dL (8.5-10.5); Carbon Dioxide 22 mmol/L (22-29); Chloride 100 mmol/L (98-107); Globulin 2.5 g/dL (1.3-4.6); Glomerular Filtration Rate 122.3 mL/min (90-130); Glucose 96 mg/dL (65-115); Osmolality Calculated 276 mOsm/kg (285-295); Sodium 134 mmol/L (136-145); Total Bilirubin 0.2 mg/dL (0.15-1.2); Total Protein 5.5 g/dL (6.6-8.7)
[2023-04-28 06:25] LABS: Anion Gap 15.6 (5-19); Potassium 3.6 mmol/L (3.5-5.1)
[2023-04-28 07:09] VITALS: BP 113/73; PULSE 94; RESP 18; TEMP 36.6; O2SAT 92
[2023-04-28 08:00] VITALS: PULSE 101; RESP 18; O2SAT 95
[2023-04-28] MEDS: cyanocobalamin 1,000 mcg Tablet 2000 MCG PO (08:39)
[2023-04-28] MEDS: fluoxetine 20 mg Capsule PO (08:39)
[2023-04-28] MEDS: cefdinir 300 MG CAPSULE PO (08:39)
--- NOTE | 2023-04-28 10:09 | PM.DCS ---
Discharge Providers Date of Admission: 04/23/23 20:59 Date of Discharge: April 28, 2023 Attending Provider at Admission: Tima Figueredo MD Attending Provider at Discharge: Tima Figueredo MD Primary Care Provider: Marion Goldsmith NP Diagnoses at Discharge Discharge Diagnosis (1) Cerebral infarction, left hemisphere: Status: Acute (2) Right arm weakness: Status: Acute (3) Non-fluent aphasia: Status: Acute (4) Hyponatremia: Status: Acute (5) Cerebrovascular accident: Status: Acute (6) Draining cutaneous sinus tract: Status: Acute (7) GERD (gastroesophageal reflux disease): Status: Acute Qualifiers: Esophagitis presence: without esophagitis Qualified Code(s): K21.9 - Gastro-esophageal reflux disease without esophagitis (8) Hypothyroidism: Status: Acute Qualifiers: Hypothyroidism type: acquired Qualified Code(s): E03.9 - Hypothyroidism, unspecified (9) Depression: Status: Acute Qualifiers: Depression Type: unspecified Qualified Code(s): F32.9 - Major depressive disorder, single episode, unspecified (10) Hypertension: Status: Acute Qualifiers: Hypertension type: essential hypertension Qualified Code(s): I10 - Essential (primary) hypertension (11) COPD (chronic obstructive pulmonary disease): Status: Acute Qualifiers: COPD type: chronic bronchitis Chronic bronchitis type: simple Qualified Code(s): J41.0 - Simple chronic bronchitis (12) Goals of care, counseling/discussion: Status: Acute (13) Leukocytosis: Status: Acute (14) Hypoxia: Status: Acute (15) Obesity: Status: Acute (16) NSTEMI (non-ST elevated myocardial infarction): Status: Acute (17) Hypotension: Status: Acute Reason for Visit Reason for Visit: stroke like symptoms, right sided weakness Hospital Course Hospital Course Scarlet Tong is a 67 year old female with a past medical history of 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 Currently patient is not alert or oriented, she has right-sided hemiplegia, she cannot turn her head towards the right, some degree of gaze palsy towards the right, productive aphasia she has spontaneous movement of the left upper and left lower extremity, most of the history was provided by at bedside.? Patient tells me that on Mondaye was not feeling well, he tells me that after her knee surgeries, she does not ambulate, she is Trini lift dependent, as she was not feeling well yesterday, he put her in the chair left yesterday, throughout the day she did not eat or drink much throughout Monday,? she had some tea,? she had some chicken broth, but was not feeling well, and he put her to bed around 1 AM.? That was her last known well normal this morning she did wake up at her usual time, so he let her sleep and at about noon or so he tried to wake her up and she was nonresponsive, not moving her right side so he called EMS.? According to patient's she has never had a stroke, she has never had atrial fibrillation, currently she is maintaining her airway, on 2 L, her GCS score, she does follow me around the room, when I say her name, to the right and left, she does localize pain, her GCS score is 9, her NIH stroke scale is 21 Patient was admitted to [facility] for left hemispheric CVA with right-sided hemiplegia, global aphasia, right-sided extension, productive aphasia and receptive aphasia, NIH stroke scale 21, GCS 9, out of tPA window, CT head no acute findings, CTA head and neck no large vessel occlusion, out of tPA window, was medically managed allow for permissive hypertension, IV fluids for hyponatremia, PT OT overall patient's right upper extremity strength significantly proved she continues to have right lower extremity weakness, continues to have word finding difficulties, her productive aphasia is improving, she does follow commands, work with speech therapy, received a modified barium swallow, discharged on dysphagia level 4 diet. She will be discharged home into the care of her family, with home PT OT, dysphagia level 4 diet, aspirin, statin with a follow-up with neurology. At baseline patient is a Trini lift, she has only services set up for her at home. Patient did have leukocytosis during hospitalization, received antibiotic therapy during her hospitalization, likely secondary to pneumonia, received cefdinir on discharge. She does have a chronic right thigh draining ulcer, no evidence of cellulitis, she has received wound care which she should continue, CT did not show any significant radiographic evidence of extension into the right hip joint. On discharge she is alert to person, to place, not to time, she can follow commands she has good right upper extremity strength which is improving right lower extremity strength remains 1 out of 4, but at baseline she is a Trini lift, and she does not ambulate, continues to have productive aphasia word finding difficulty but improved Physical Exam Const: COMMON NORMALS: no acute distress Resp: COMMON NORMALS: normal respiratory effort, No retractions, No use of accessory muscles and clear to auscultation bilaterally AUSCULTATION: clear to auscultation bilaterally Cardio: COMMON NORMALS: regular rate, regular rhythm, S1 normal heart sound present and S2 normal heart sound present RATE: regular rate RHYTHM: regular rhythm HEART SOUNDS: S1 normal heart sound present and S2 normal heart sound present GI: COMMON NORMALS: Normal to inspection, nondistended, normoactive bowel sounds present and non-tender Extremity: COMMON NORMALS: no pedal edema Urinary Catheter Management: Zimmerman: Cath Placed During This Visit: yes Reason for Continuing Indwelling Catheter: Acute Urinary Retention or Obstruction Urinary Catheter Date of Insertion: 04/23/23 Urinary Catheter Time of Insertion: 18:18 Discharge Data Studies Completed and Pending Completed Studies During Hospitalization Category Date Time Status CT angio headneck* [id number] Stat Cat Scan 04/23/23 16:[address] head wo con* [id number] Stat Cat Scan 04/24/23 14:[address] hip RT w con [id number] Stat Cat Scan 04/23/23 22:48 Completed CXRP [XR chest 1V portable [id number]] Routine Exams 04/24/23 06:33 Completed FL barium swallow modifd [id number] Routine Exams 04/26/23 10:30 Completed XR KUB portable [id number] Stat Exams 04/23/23 18:39 Completed XR chest 1V portable [id number] Stat Exams 04/23/23 16:56 Completed XR hip RT 2-3V wo/w pel* [id number] Stat Exams 04/23/23 16:56 [place] [id number] Stat Ultrasound 04/23/23 18:35 Completed CV. echo complete* [id number] Routine Ultrasound 04/24/23 06:37 Completed Pending at discharge Category Date Time Status Blood Culture Stat Lab 04/23/23 18:57 Results Complete Blood Count w/Auto AM LABS Lab 04/29/23 04:00 Ordered Comprehensive Metabolic Panel AM LABS Lab 04/29/23 04:00 Ordered Radiology Impressions Head/Neck CTA 04/23/23 16:15 IMPRESSION: No large vessel stenosis or occlusion. IMPRESSION: 1. No large vessel stenosis or occlusion. No dissection. 2. Minimal pulmonary ground-glass opacities are nonspecific and can be seen with low lung volumes/atelectasis, pulmonary edema, and or pneumonia. REFERENCES: NASCET CRITERIA. The degree of stenosis in the cervical segment of the internal carotid artery is based on NASCET criteria. Normal is no stenosis. Mild is less than 50% stenosis. Moderate is 50-69% stenosis. Severe is 70% to 99% stenosis. Total occlusion is no detectable patent lumen. Hip/Pelvis X-Ray 04/23/23 16:56 IMPRESSION: No acute findings.Non acute findings as described above. Venous Duplex 04/23/23 18:35 IMPRESSION: No evidence of deep vein thrombosis. KUB X-Ray 04/23/23 18:39 IMPRESSION: No acute findings. Hip CT 04/23/23 22:48 IMPRESSION: 1. Right hip prosthesis is intact without evidence of loosening or bony destructive change. 2. There is a thick-walled defect in the right lateral thigh extending to the muscular fascia. Luminal debris may represent packing material but necrotic tissue is not excluded. 3. Severe distension of the rectum with fecal debris. Catheterized urinary bladder. Chest X-Ray 04/24/23 06:33 IMPRESSION: Unremarkable frontal portable chest x-ray. Head CT 04/24/23 14:18 IMPRESSION: 1. No evidence of intracranial hemorrhage or mass effect. 2. Mild small vessel changes with mild parenchymal volume loss. 3. No acute intracranial findings. Modified Barium Swallow 04/26/23 10:30 IMPRESSION: PLEASE REFER TO THE SPEECH PATHOLOGIST REPORT FOR ADDITIONAL DETAILS REGARDING THIS MODIFIED BARIUM SWALLOW STUDY. Laboratory Results WBC 6.8 10^3/uL (4.0-10.0) 04/28/23 05:47 RBC 3.50 10^6/uL (4.1-5.3) L 04/28/23 05:47 Hgb 9.9 g/dL (11.5-15.3) L 04/28/23 05:47 Hct 31.8 % (37.0-47.0) L 04/28/23 05:47 MCV 90.9 fl (81-99) 04/28/23 05:47 MCH 28.3 pg (28.0-34.0) 04/28/23 05:47 MCHC 31.1 g/dL (30.0-36.0) 04/28/23 05:47 RDW 13.4 % (12.1-15.1) 04/28/23 05:47 Plt Count 312 10^3/cmm (130-400) 04/28/23 05:47 MPV 10.2 fL (7.4-10.4) 04/28/23 05:47 Neut % (Auto) 54.3 % 04/28/23 05:47 Lymph % (Auto) 32.5 % 04/28/23 05:47 [place] % (Auto) 10.0 % 04/28/23 05:47 Eos % (Auto) 2.2 % 04/28/23 05:47 Baso % (Auto) 0.7 % 04/28/23 05:47 Neut # (Auto) 3.70 10^3/uL (1.8-7.7) 04/28/23 05:47 Lymph # (Auto) 2.2 10^3/uL (0.8-4.8) 04/28/23 05:47 [place] # (Auto) 0.7 10^3/uL (0.2-0.9) 04/28/23 05:47 Eos # (Auto) 0.2 10^3/uL (0.0-0.8) 04/28/23 05:47 Baso # (Auto) 0.1 10^3/uL (0.0-0.1) 04/28/23 05:47 Nucleated RBC % (auto) 0 % 04/28/23 05:47 Nucleated RBCs # 0.0 /100WBC 04/28/23 05:47 ESR 56 mm/hr (0-15) H 04/23/23 17:16 PT 14.20 SECONDS (12.1-14.9) 04/23/23 17:16 INR 1.07 (0.8-1.2) 04/23/23 17:16 APTT 29.0 SECONDS (23.9-36.7) 04/23/23 17:16 Specimen Type Arterial 04/24/23 09:50 Sample Site Radial, right 04/24/23 09:50 ABG pH 7.45 (7.35-7.45) 04/24/23 09:50 ABG pCO2 37.7 mmHg (35-45) 04/24/23 09:50 ABG pO2 102.0 mmHg (80.0-100.0) H 04/24/23 09:50 ABG HCO3 26.3 mmol/L (22-26) H 04/24/23 09:50 ABG Base Excess 2.3 mmol/L (-2.0-2.0) H 04/24/23 09:50 Hernan Test Pos 04/24/23 09:50 Hematocrit 31.1 % (37-47) L 04/24/23 09:50 O2 Delivery Device Nc 04/24/23 09:50 O2 Liters/Min 2.5 % 04/24/23 09:50 Examination Supervisor ID Broma 04/24/23 09:50 Sodium 134 mmol/L (136-145) L 04/28/23 05:47 Potassium 3.6 mmol/L (3.5-5.1) 04/28/23 05:47 Chloride 100 mmol/L (98-107) 04/28/23 05:47 Carbon Dioxide 22 mmol/L (22-29) 04/28/23 05:47 Anion Gap 15.6 (5-19) 04/28/23 05:47 BUN 8 mg/dL (8-23) 04/28/23 05:47 Creatinine 0.5 mg/dL (0.5-0.9) 04/28/23 05:47 GFR Calculation 122.3 mL/min (90-130) 04/28/23 05:47 Glucose 96 mg/dL (65-115) 04/28/23 05:47 POC Glucose 88 mg/dL (70-110) 04/24/23 06:29 Estimat Average Glucose 97 04/24/23 02:47 Hemoglobin A1c 5.0 % (4.0-6.0) 04/24/23 02:47 Calculated Osmolality 276 mOsm/kg (285-295) L 04/28/23 05:47 Lactic Acid 0.7 mmol/L (0.5-2.2) 04/24/23 08:45 Calcium 8.3 mg/dL (8.5-10.5) L 04/28/23 05:47 Phosphorus 2.3 mg/dL (2.5-4.5) L 04/26/23 11:09 Magnesium 1.9 mg/dL (1.7-2.3) 04/26/23 11:09 Total Bilirubin 0.2 mg/dL (0.15-1.2) 04/28/23 05:47 AST 14 U/L (0-32) 04/28/23 05:47 ALT 8 U/L (0-33) 04/28/23 05:47 Alkaline Phosphatase 50 U/L (35-105) 04/28/23 05:47 Ammonia 21 umol/L (11-51) 04/23/23 18:57 Troponin T Baseline 406 ng/L (0-10) H* 04/24/23 08:45 Troponin T 120 Minute 415.0 ng/L (0-10) H 04/24/23 11:32 Delta Troponin T 9.0 ABS# (0-10) 04/24/23 11:32 Troponin T Hi Sens 6Hr 376.1 ng/L (0-10) H 04/24/23 15:50 Troponin T Hi Sens 6Hr Delta -29.9 ng/L (0-12) L 04/24/23 15:50 C-Reactive Protein 126.8 mg/L (0.0-4.9) H 04/23/23 18:53 NT-Pro-B Natriuret Pep 71848 pg/mL (0-125) H 04/24/23 02:47 Total Protein 5.5 g/dL (6.6-8.7) L 04/28/23 05:47 Albumin 3.0 g/dL (3.5-5.2) L 04/28/23 05:47 Globulin 2.5 g/dL (1.3-4.6) 04/28/23 05:47 Triglycerides 67 mg/dL (0-150) 04/24/23 02:47 Cholesterol 132 mg/dL (0-200) 04/24/23 02:47 LDL Cholesterol, Calc 77 mg/dL (50-129) 04/24/23 02:47 HDL Cholesterol 42 mg/dL (60-100) L 04/24/23 02:47 LDL/HDL Ratio 1.83 RATIO (0.00-3.22) 04/24/23 02:47 Cholesterol/HDL Ratio 3.14 mg/dL (0.0-4.40) 04/24/23 02:47 Procalcitonin 0.09 ng/mL (0-0.5) 04/23/23 18:53 TSH 7.36 uIU/mL (0.27-4.20) H 04/24/23 02:47 Free T4 1.37 ng/dL (0.82-1.77) 04/24/23 02:47 Free T3 1.3 PG/ML (2.0-4.4) L 04/24/23 02:47 Urine Color Yellow (Yellow) 04/23/23 18:13 Urine Appearance Sl hazy (CLEAR) A 04/23/23 18:13 Urine pH 5 (5-7) 04/23/23 18:13 Ur Specific Crozier 1.020 (1.005-1.030) 04/23/23 18:13 Urine Protein 1+ (Negative) H 04/23/23 18:13 Urine Glucose (UA) Norm (Normal) 04/23/23 18:13 Urine Ketones Negative (Negative) 04/23/23 18:13 Urine Blood Neg (Negative) 04/23/23 18:13 Urine Nitrate Negative (Negative) 04/23/23 18:13 Urine Bilirubin Neg (Negative) 04/23/23 18:13 Urine Urobilinogen 1 mg/dL (Negative) H 04/23/23 18:13 Ur Leukocyte Esterase Negative (Negative) 04/23/23 18:13 Urine RBC None /hpf (0-2) 04/23/23 18:13 Urine WBC None /hpf (0-5) 04/23/23 18:13 Ur Squamous Epith Cells 10-15 /hpf (0-5) H 04/23/23 18:13 Ur Transition Epith Cell 0-4 /hpf 04/23/23 18:13 Amorphous Sediment Not Reportable 04/23/23 18:13 Urine Bacteria 1+ /hpf (NONE) H 04/23/23 18:13 Urine Mucus 2+ /hpf 04/23/23 18:13 Nasal Influ A H1 2008 PCR Not detected (NOT DETECT) 04/23/23 21:41 Urine Opiates Screen Negative ng/mL (Negative) 04/23/23 18:13 Ur Barbiturates Screen Negative ng/mL (Negative) 04/23/23 18:13 Ur Phencyclidine Scrn Negative ng/mL (Negative) 04/23/23 18:13 Ur Amphetamines Screen Negative ng/mL (Negative) 04/23/23 18:13 U Benzodiazepines Scrn Negative ng/mL (Negative) 04/23/23 18:13 Urine Cocaine Screen Negative ng/mL (Negative) 04/23/23 18:13 U Marijuana (THC) Screen Negative ng/mL (Negative) 04/23/23 18:13 Ethyl Alcohol < 10 mg/dL (0-10) 04/23/23 17:16 Adenovirus (PCR) Not detected (NOT DETECT) 04/23/23 21:41 C. pneumoniae DNA (PCR) Not detected (NOT DETECT) 04/23/23 21:41 Coronavirus 229E (PCR) Not detected (NOT DETECT) 04/23/23 21:41 Human Metapneumovir PCR Not detected (NOT DETECT) 04/23/23 21:41 Influenza A (H1) PCR Not detected (NOT DETECT) 04/23/23 21:41 Influenza A (H3) PCR Not detected (NOT DETECT) 04/23/23 21:41 Influenza Type A (PCR) Not detected (NOT DETECT) 04/23/23 21:41 Influenza Type B (PCR) Not detected (NOT DETECT) 04/23/23 21:41 M. pneumoniae (PCR) Not detected (NOT DETECT) 04/23/23 21:41 Parainfluenza 1 (PCR) Not detected (NOT DETECT) 04/23/23 21:41 Parainfluenza 2 (PCR) Not detected (NOT DETECT) 04/23/23 21:41 Parainfluenza 3 (PCR) Not detected (NOT DETECT) 04/23/23 21:41 Parainfluenza 4 (PCR) Not detected (NOT DETECT) 04/23/23 21:41 RSV Type A (PCR) Not detected (NOT DETECT) 04/23/23 21:41 RSV Type B (PCR) Not detected (NOT DETECT) 04/23/23 21:41 Entero/Rhino (PCR) Not detected (NOT DETECT) 04/23/23 21:41 SARS-CoV-2 (PCR) Not detected (NOT DETECT) 04/23/23 21:41 Vitals Last Vital Signs Temp 97.8 F 04/28/23 07:09 Pulse 101 H 04/28/23 08:00 Resp 18 04/28/23 08:00 BP 113/73 04/28/23 07:09 Pulse Ox 95 04/28/23 08:00 O2 Del Method Room Air 04/28/23 08:00 O2 Flow Rate 2 04/26/23 08:00 Discharge Plan Discharge Patient Disposition: Home Health Service Condition: Stable Prescriptions: New atorvastatin 40 mg Tablet 40 mg PO BEDTIME 30 Days Qty: 30 0RF cefdinir 300 mg Capsule 300 mg PO BID 3 Days Qty: 6 0RF levothyroxine 200 mcg Tablet 200 mcg PO QAM 30 Days Qty: 30 0RF aspirin 325 mg Tablet,Delayed Release (Dr/Ec) 325 mg PO QPM 30 Days Qty: 30 0RF Continued fluoxetine [Prozac] 20 mg capsule 20 mg PO DAILY (DME) Knee Immobilizer See Rx Instructions .Route .MEDSUPPLY Qty: 1 0RF Rx Instructions: As directed (DME) Drop Lock Knee Brace See Rx Instructions .Route .MEDSUPPLY Qty: 1 0RF Rx Instructions: As directed sodium chloride 0.9 % solution 1 irrig irrigation DAILY Qty: 500 2RF Rx Instructions: dispense amount readily available bupropion HCl [Wellbutrin SR] 150 mg Tablet Sustained-Release 12 Hr 150 mg PO DAILY Qty: 0 omeprazole 20 mg Capsule,Delayed Release(Dr/Ec) 20 mg PO DAILY diphenhydramine-acetaminophen [Tylenol PM Extra Strength] 25-500 mg Tablet 2 tab PO BEDTIME Qty: 0 solifenacin 10 mg tablet 10 mg PO DAILY pregabalin [Lyrica] 75 mg Capsule 75 mg PO BEDTIME Trelegy Ellipta 100-62.5-25 mcg Blister With Device 1 inh INHALATION DAILY Hold Instructions: Resume on 05/08/22. senna 8.6 mg Tablet 8.6 mg PO DAILY PRN (Reason: Constipation) propranolol 10 mg Tablet 10 mg PO DAILY biotin 10,000 mcg Capsule 10,000 mcg PO DAILY Vitamin B-12 1,000 mcg Tablet, Sublingual 2,000 mcg PO DAILY Vitamin D2 1,250 mcg (50,000 unit) Capsule 50,000 unit PO Q7D amitriptyline 100 mg Tablet 50 - 100 mg PO BEDTIME Claritin 10 mg Tablet 10 mg PO DAILY Linzess 145 mcg Capsule 145 mcg PO DAILY Discontinued losartan 50 mg tablet 50 mg PO DAILY Qty: 30 0RF levothyroxine 300 mcg Tablet 300 mcg PO QAM Pepcid 40 mg Tablet 40 mg PO BID ibuprofen 200 mg Tablet 400 mg PO Q6H PRN (Reason: Pain) Discharge Orders: Discharge Order (Routine); Ordered 04/28/23 Ordered By: Tima Figueredo Referrals: [facility] ([facility]) [Outside] Tho Harrington MD [Physician] - 2 weeks Jatinder Rust MD [Physician] - 1 month (MESSAGE SENT TO CLINIC. ) Marion Goldsmith NP [Primary Care Provider] - 05/02/23 9:30 am Discharge Diet: As Directed Discharge Activity: Increase activity as tolerated Patient Instructions: Ischemic Stroke (DC), Opioid Safety Activity Restrictions/Additional Instructions: - For your stroke continue dysphagia level 4 diet, extremely thick/pur?ed, work with speech therapy -Work with physical therapy -Continue aspirin, statin -Follow-up with neurology -If you have any chest pain please go to emergency room, follow-up with cardiology Discharge Attestations Time Spent in Discharge Care*: greater than 30 min Status at Discharge: Cognitive status at discharge: cognitively intact, Behavioral status at discharge: cooperative, Quality Metrics Clinical Quality Measures [ Cerebrovascular Accident { Contraindication to Antithrombotic: None; antithrombotic prescribed; Contraindication to Anticoagulation: Overlap treatment not indicated; Contraindication to Statin: None; Statin prescribed;}. No reported AMI, CVA or VTE this stay] Coding Level of Care Code 35130 Total time (in minutes) for Discharge: 45 Diagnoses Cerebral infarction, left hemisphere I63.9 Right arm weakness R29.898 Non-fluent aphasia R47.01 Hyponatremia E87.1 Cerebrovascular accident I63.9 Draining cutaneous sinus tract L98.8 GERD (gastroesophageal reflux disease) K21.9 Esophagitis presence: without esophagitis Hypothyroidism E03.9 Hypothyroidism type: acquired Depression F32.9 Depression Type: unspecified Hypertension I10 Hypertension type: essential hypertension COPD (chronic obstructive pulmonary disease) J41.0 COPD type: chronic bronchitis Chronic bronchitis type: simple Goals of care, counseling/discussion Z71.89 Leukocytosis D72.829 Hypoxia R09.02 Obesity E66.9 NSTEMI (non-ST elevated myocardial infarction) I21.4 Hypotension I95.9
--- NOTE | 2023-04-28 11:01 | PC.SOCIAL ---
IMM Update pg 2 of IMM updated and reviewed w/ patients . Copy left @ bedside and copy in chart dated, and initialed.
== END 2023-04-28 14:47 | disposition home health service (06) | DRG 64 ==
LOC: ER 18:04 → MEDSURG 04-24 08:25
PROVIDERS: Hospitalist; Admitting Provider Family Medicine; Emergency Provider Emergency Medicine; PCP Nurse Practitioner Family; Visit Provider Family Medicine
DX: I63.9 Cerebral infarction, unspecified (principal); I21.4 Non-ST elevation (NSTEMI) myocardial infarction; J69.0 Pneumonitis due to inhalation of food and vomit; G81.91 Hemiplegia, unspecified affecting right dominant side; L97.119 Non-pressure chronic ulcer of right thigh with unspecified severity; E87.1 Hypo-osmolality and hyponatremia; R47.01 Aphasia; R29.810 Facial weakness; R13.10 Dysphagia, unspecified; R29.721 NIHSS score 21; E66.9 Obesity, unspecified; Z68.36 Body mass index [BMI] 36.0-36.9, adult; J44.9 Chronic obstructive pulmonary disease, unspecified; D64.9 Anemia, unspecified; K21.9 Gastro-esophageal reflux disease without esophagitis; E03.9 Hypothyroidism, unspecified; M19.90 Unspecified osteoarthritis, unspecified site; Z96.641 Presence of right artificial hip joint; F32.A Depression, unspecified; N32.81 Overactive bladder; M79.7 Fibromyalgia; Z88.5 Allergy status to narcotic agent; Z88.0 Allergy status to penicillin; Z88.2 Allergy status to sulfonamides; I10 Essential (primary) hypertension; Z87.891 Personal history of nicotine dependence; I95.9 Hypotension, unspecified; E86.0 Dehydration; Z96.653 Presence of artificial knee joint, bilateral
CPT/HCPCS: 36415; 36416; 36600; 51702; 70450; 70496; 70498; 71045; 73502; 73701; 74018; 74230; 80048; 80053; 80061; 80306; 80307; 81001; 82140; 82803; 82962; 83036; 83605; 83735; 83880; 84100; 84145; 84295; 84439; 84443; 84481; 84484; 85025; 85610; 85651; 85730; 86140; 87040; 87486; 87581; 87633; 92507; 92523; 92526; 92610; 92611; 93005; 93306; 93970; 94664; 96360; 96361; 96372; 97110; 97161; 97165; 97530; 99285; C9113; J0131; J0456; J0696; J1650; J3475; J3490; J7030; J7050; P9047; Q9967

== ENCOUNTER → 2023-05-09 12:51 | Outpatient (BNVA) | payer MEDICARE, OTHER, SELFPAY | PROVIDERS: PCP Nurse Practitioner Family; Visit Provider Psychiatry & Neurology Neurology | DX: I69.320 Aphasia following cerebral infarction (principal); I69.351 Hemiplegia and hemiparesis following cerebral infarction affecting right dominant side; Z87.891 Personal history of nicotine dependence; F32.A Depression, unspecified; I10 Essential (primary) hypertension; E03.9 Hypothyroidism, unspecified; K21.9 Gastro-esophageal reflux disease without esophagitis; N32.81 Overactive bladder; Z96.641 Presence of right artificial hip joint; E87.1 Hypo-osmolality and hyponatremia; D72.829 Elevated white blood cell count, unspecified | CPT/HCPCS: 99212 ==

== ENCOUNTER 2023-05-10 15:54 | Emergency (ER) | payer MEDICARE, OTHER, SELFPAY ==
[2023-05-10 15:56] VITALS: BP 107/59; TEMP 36.8; O2SAT 98
--- NOTE | 2023-05-10 15:57 | W.ED.EXTPRO ---
HPI - Extremity Problem General: Chief complaint: Extremity Injury, Lower Stated complaint: R leg pain Time Seen by Provider: 05/10/23 15:56 History of Present Illness: 67-year-old lady presenting with right leg pain post fall out of her wheelchair in the vehicle. She has complex recent history. She had prior leg injury which limited mobility and subsequently also recently had stroke. Moderate intensity symptoms and worse with palpation and movement. No other specific changes in health, exacerbating, or alleviating factors identified. 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 Hypertension Hyponatremia Hypothyroidism Osteoarthritis Overactive bladder Periprosthetic fracture around internal prosthetic knee joint Surgical History History of back surgery History of bilateral knee replacement History of History of hysterectomy History of right hip replacement History of tonsillectomy Hx of cervical spine surgery Family History Other Hypertension Social History Smoking and tobacco status: former smoker Alcohol intake: current Alcohol intake frequency: holidays/special occasions only Substance/Drug Use: never Household members: spouse Marital status: Female Reproductive History: Para: 2 Physical Exam Const: COMMON NORMALS: alert GENERAL APPEARANCE: cooperative and well developed HENMT: COMMON NORMALS: normocephalic and atraumatic HEAD & SCALP: normocephalic and atraumatic Eye: COMMON NORMALS: conjunctivae normal CONJUNCTIVA: Yes conjunctivae normal SCLERA: sclerae normal Neck/C-Spine: COMMON NORMALS: supple GENERAL: Yes trachea midline Resp: COMMON NORMALS: normal respiratory effort EFFORT & INSPECTION: Yes able to speak in complete sentences Cardio: COMMON NORMALS: regular rate and regular rhythm RATE: regular rate RHYTHM: regular rhythm GI: COMMON NORMALS: Soft to palpation PALPATION: Yes Soft to palpation and No Tenderness to palpation present (GI) Extremity: NARRATIVE EXTREMITY EXAM: Right lower extremity generalized tenderness to palpation. Worse in the knee area. GENERAL: Yes normal exam except as noted and No edema Neuro: SENSORIUM/ORIENTATION: Yes alert and No Orientation impaired OTHER: Residual stroke deficits Psych: COMMON NORMALS: mental status grossly normal and Normal thought process present THOUGHT PROCESS: Normal thought process present Course Vital Signs: Vital signs: Vital Signs Temperature 98.2 F 05/10/23 15:56 Pulse Rate 90 05/10/23 17:27 Respiratory Rate 16 05/10/23 17:27 Blood Pressure 97/71 05/10/23 17:27 Pulse Oximetry 90 05/10/23 17:27 Oxygen Delivery Me thod Room Air 05/10/23 17:27 MDM - Extremity (Nontraumatic) Medical Decision Making 67-year-old lady presenting with right leg pain after fall. Head to toe exam performed. Distal CMS intact. No indication for labs. X-rays demonstrate mildly displaced proximal right fibula and tibia fracture. Plan for outpatient orthopedics follow-up. Discussed with Dr. Ross. Patient placed in knee immobilizer. The results of ED evaluation were discussed with the patient including prescriptions and/or symptomatic cares (if applicable) including appropriate and responsible use, followup plan, and return precautions. The patient verbalized understanding and felt safe for discharge. Medical Records I reviewed the patient's medical records. Lab Data I reviewed the patient's lab results. Radiology Impressions Femur X-Ray 05/10/23 16:14 IMPRESSION: No acute findings. Hip/Pelvis X-Ray 05/10/23 16:14 IMPRESSION: No acute findings. Tibia/Fibula X-Ray 05/10/23 16:14 IMPRESSION: Mildly displaced fractures in the proximal right fibula and tibia. Discharge Plan Discharge Patient Disposition: Home Clinical Impression: Fall, Periprosthetic fracture around internal prosthetic right knee joint Condition: Stable Prescriptions: New tramadol 50 mg tablet 50 mg PO Q6H PRN (Reason: pain) Qty: 30 0RF ondansetron 4 mg tablet,disintegrating 4 mg PO Q8H PRN (Reason: nausea and vomiting) Qty: 15 0RF No Action fluoxetine [Prozac] 20 mg capsule 20 mg PO DAILY (DME) Knee Immobilizer See Rx Instructions .Route .MEDSUPPLY Qty: 1 0RF Rx Instructions: As directed (DME) Drop Lock Knee Brace See Rx Instructions .Route .MEDSUPPLY Qty: 1 0RF Rx Instructions: As directed sodium chloride 0.9 % solution 1 irrig irrigation DAILY Qty: 500 2RF Rx Instructions: dispense amount readily available (DME) Wheel chair leg extension See Rx Instructions .Route .MEDSUPPLY Qty: 1 0RF Rx Instructions: As directed bupropion HCl [Wellbutrin SR] 150 mg Tablet Sustained-Release 12 Hr 150 mg PO DAILY Qty: 0 omeprazole 20 mg Capsule,Delayed Release(Dr/Ec) 20 mg PO DAILY diphenhydramine-acetaminophen [Tylenol PM Extra Strength] 25-500 mg Tablet 2 tab PO BEDTIME Qty: 0 solifenacin 10 mg tablet 10 mg PO DAILY pregabalin [Lyrica] 75 mg Capsule 75 mg PO BEDTIME Trelegy Ellipta 100-62.5-25 mcg Blister With Device 1 inh INHALATION DAILY Hold Instructions: Resume on 05/08/22. senna 8.6 mg Tablet 8.6 mg PO DAILY PRN (Reason: Constipation) propranolol 10 mg Tablet 10 mg PO DAILY biotin 10,000 mcg Capsule 10,000 mcg PO DAILY cyanocobalamin (vitamin B-12) 1,000 mcg Tablet, Sublingual 2,000 mcg PO DAILY Vitamin D2 1,250 mcg (50,000 unit) Capsule 50,000 unit PO Q7D amitriptyline 100 mg Tablet 50 - 100 mg PO BEDTIME Claritin 10 mg Tablet 10 mg PO DAILY Linzess 145 mcg Capsule 145 mcg PO DAILY atorvastatin 40 mg Tablet 40 mg PO BEDTIME 30 Days Qty: 30 0RF aspirin 325 mg Tablet,Delayed Release (Dr/Ec) 325 mg PO QPM 30 Days Qty: 30 0RF levothyroxine 200 mcg Tablet 200 mcg PO QAM 30 Days Qty: 30 0RF Discharge Orders: Discharge ED (Routine); Ordered 05/10/23 Ordered By: Aki Pena Referrals: Marion Goldsmith [employer] [Primary Care Provider] - Discharge Diet: As Directed Discharge Activity: Limit activity as instructed Patient Instructions: Fractures - Knee, Leg Fracture (ED), Opioid Safety Activity Restrictions/Additional Instructions: Thank you for visiting the emergency department. You were seen and evaluated for follow-up with leg pain. You are found to have a proximal tibia and fibular fracture. After discussion with orthopedics you will be placed in a knee immobilizer and referred for follow-up. I will prescribe tramadol, use this cautiously as it is an opioid. You may use [id number] medications such as acetaminophen and ibuprofen for pain however please do not exceed the daily recommended dosage as listed on the packaging and please keep in mind that many namebrand medications contain the same active ingredients. Please avoid these medications if previously instructed to do so by another physician due to other underlying medical condition. Elevation and ice will also likely help. Return for uncontrolled pain or anything else that you are concerned about and feel needs emergency department evaluation. Coding Level of Care Code ED [employer] for Jud Mooney
--- NOTE | 2023-05-10 16:14 | XRR_ITS ---
PROCEDURE INFORMATION: Exam: XR Right Tibia and Fibula Exam date and time: 05/10/2023 4:22 PM Age: 67 years old Clinical indication: Injury or trauma; Fall; Blunt trauma; Thigh or upper leg; Right; Prior surgery; Surgery date: 6+ months; Surgery type: Knee TECHNIQUE: Imaging protocol: Radiologic exam of the right tibia and fibula. Views: 2 views. COMPARISON: CT hip RT w con [id number] 04/23/2023 10:54 PM FINDINGS: Bones/joints: Right knee arthroplasty hardware. Mildly displaced fracture in the proximal metaphysis of the fibula. Mildly displaced fracture in the proximal metaphysis of the tibia. Degenerative changes of the ankle joint. Soft tissues: Normal. XR/XR tibia fibula RT 2V [id number] IMPRESSION: Mildly displaced fractures in the proximal right fibula and tibia.
--- NOTE | 2023-05-10 16:14 | XRR_ITS ---
PROCEDURE INFORMATION: Exam: XR Right Hip Exam date and time: 05/10/2023 4:29 PM Age: 67 years old Clinical indication: Injury or trauma; Fall; Blunt trauma (contusions or hematomas); Prior surgery; Surgery date: 6+ months; Surgery type: Right hip, right femur TECHNIQUE: Imaging protocol: Radiologic exam of the right hip. Views: 1 view hip with pelvis when performed. COMPARISON: CT hip RT w con [id number] 04/23/2023 10:54 PM FINDINGS: Bones/joints: Right hip arthroplasty hardware. Metal plate in the right femur. No acute fracture identified. Soft tissues: Unremarkable. Gastrointestinal tract: Radiopaque material in the rectum. XR/XR hip RT 2-3V wo/w pel* [id number] IMPRESSION: No acute findings.
--- NOTE | 2023-05-10 16:14 | XRR_ITS ---
PROCEDURE INFORMATION: Exam: XR Right Femur Exam date and time: 05/10/2023 4:24 PM Age: 67 years old Clinical indication: Injury or trauma; Fall; Blunt trauma; Thigh or upper leg; Prior surgery; Surgery date: 6+ months; Surgery type: Right hip, right femur TECHNIQUE: Imaging protocol: Radiologic exam of the right femur. Views: 2 views. COMPARISON: CT hip RT w con [id number] 04/23/2023 10:54 PM FINDINGS: Bones/joints: Right hip arthroplasty. Right knee arthroplasty. Metal plate and multiple screws in the distal right femur. Old healed fracture in the distal diaphysis of the right femur. No definite acute fracture identified. Soft tissues: Unremarkable. XR/XR femur RT min 2V* [id number] IMPRESSION: No acute findings.
[2023-05-10 17:10] VITALS: RESP 18; O2SAT 100
[2023-05-10] MEDS: fentaNYL 50 mcg/mL INJ 2mL IVP (17:10)
[2023-05-10 17:27] VITALS: BP 97/71; PULSE 90; RESP 16; O2SAT 90
--- NOTE | 2023-05-11 07:36 | DCPLANNER ---
Addendum entered by Jennifer Liz 05/23/23 15:17: Patient did attend appointment scheduled with ortho. Addendum entered by Jennifer Liz 05/12/23 10:24: Patient has a follow up appointment scheduled for Tuesday, May 15 at 3:[address] Ross at ortho. Original Note: auto specialty services manager had message to schedule a follow up appointment for patient with ortho. auto specialty services manager sent patients information to the front office staff at ortho. Patients information will be printed and reviewed. Clinic will call patient with appointment information.
== END 2023-05-10 21:50 | disposition home or self-care (01) ==
PROVIDERS: Emergency Provider Emergency Medicine; PCP Nurse Practitioner Family
DX: M97.11XA Periprosthetic fracture around internal prosthetic right knee joint, initial encounter (principal)
CPT/HCPCS: 73502; 73552; 73590; 96374; 99284; J3010

== ENCOUNTER → 2023-05-18 11:28 | Outpatient (BNVA) | payer MEDICARE, OTHER, SELFPAY | PROVIDERS: PCP Nurse Practitioner Family; Visit Provider Nurse Practitioner Family | DX: S82.101A Unspecified fracture of upper end of right tibia, initial encounter for closed fracture; S82.831A Other fracture of upper and lower end of right fibula, initial encounter for closed fracture; W19.XXXA Unspecified fall, initial encounter; Z46.89 Encounter for fitting and adjustment of other specified devices; S82.102D Unspecified fracture of upper end of left tibia, subsequent encounter for closed fracture with routine healing; S82.832D Other fracture of upper and lower end of left fibula, subsequent encounter for closed fracture with routine healing; X58.XXXD Exposure to other specified factors, subsequent encounter | CPT/HCPCS: 73560; 97760; 99214; L1832 ==

== ENCOUNTER 2023-05-18 14:13 | Outpatient (CLI) | payer MEDICARE, OTHER, SELFPAY | END 2023-05-18 14:14 | disposition home or self-care (01) | LOC: SPT 14:13 | PROVIDERS: PCP Nurse Practitioner Family; Visit Provider Nurse Practitioner Family | DX: Z46.89 Encounter for fitting and adjustment of other specified devices (principal); S82.102D Unspecified fracture of upper end of left tibia, subsequent encounter for closed fracture with routine healing; S82.832D Other fracture of upper and lower end of left fibula, subsequent encounter for closed fracture with routine healing; X58.XXXD Exposure to other specified factors, subsequent encounter | CPT/HCPCS: 97760; L1832 ==

== ENCOUNTER → 2023-06-16 10:26 | Outpatient (BNVA) | payer MEDICARE, OTHER, SELFPAY | PROVIDERS: PCP Nurse Practitioner Family; Visit Provider Nurse Practitioner Family | DX: S82.101A Unspecified fracture of upper end of right tibia, initial encounter for closed fracture; S82.831A Other fracture of upper and lower end of right fibula, initial encounter for closed fracture; W19.XXXA Unspecified fall, initial encounter | CPT/HCPCS: 73590; 99213 ==

== ENCOUNTER → 2023-07-14 10:17 | Outpatient (BNVA) | payer OTHER, MEDICARE, SELFPAY | PROVIDERS: PCP Nurse Practitioner Family; Visit Provider Physician Assistant | DX: S82.101A Unspecified fracture of upper end of right tibia, initial encounter for closed fracture; S82.831A Other fracture of upper and lower end of right fibula, initial encounter for closed fracture; W19.XXXA Unspecified fall, initial encounter | CPT/HCPCS: 73560; 99213 ==

== ENCOUNTER → 2023-08-11 10:04 | Outpatient (BNVA) | payer OTHER, SELFPAY | PROVIDERS: PCP Nurse Practitioner Family; Visit Provider Nurse Practitioner | DX: M25.561 Pain in right knee (principal); S82.101D Unspecified fracture of upper end of right tibia, subsequent encounter for closed fracture with routine healing; S82.831D Other fracture of upper and lower end of right fibula, subsequent encounter for closed fracture with routine healing; X58.XXXD Exposure to other specified factors, subsequent encounter | CPT/HCPCS: 73560; 73590; 99213 ==

== ENCOUNTER → 2023-09-15 11:13 | Outpatient (BNVA) | payer OTHER, SELFPAY | PROVIDERS: PCP Nurse Practitioner Family; Visit Provider Nurse Practitioner | DX: S82.101D Unspecified fracture of upper end of right tibia, subsequent encounter for closed fracture with routine healing; S82.831D Other fracture of upper and lower end of right fibula, subsequent encounter for closed fracture with routine healing; X58.XXXD Exposure to other specified factors, subsequent encounter | CPT/HCPCS: 73562; 99214 ==

== ENCOUNTER → 2023-10-06 10:39 | Outpatient (BNVA) | payer OTHER, SELFPAY | PROVIDERS: PCP Nurse Practitioner Family; Visit Provider Nurse Practitioner | DX: S82.101D Unspecified fracture of upper end of right tibia, subsequent encounter for closed fracture with routine healing; S82.831D Other fracture of upper and lower end of right fibula, subsequent encounter for closed fracture with routine healing; X58.XXXD Exposure to other specified factors, subsequent encounter | CPT/HCPCS: 73560; 99213 ==

== ENCOUNTER 2025-01-20 14:39 | Outpatient (CLI) | payer MEDICARE, OTHER, SELFPAY ==
--- NOTE | 2025-01-20 14:42 | XR_ITS ---
WS: [id number] Exam: XR tibia fibula RT 2V [id number] Date/Time of Exam: 01/20/2025 2:42 PM Reason For Exam: fracture There are healing fractures of the proximal tibia and fibula. Intact RIGHT total knee replacement. The remaining tibia and fibula are intact. There is osteopenia. Venous calcifications in the soft tissues. XR/XR tibia fibula RT 2V [id number] IMPRESSION: 1. Healed fractures of the proximal tibia and fibula. No acute fracture noted. 2. Intact RIGHT total knee replacement. Hardware in the lower femur stabilizing a healed fracture only partially visualized.
== END 2025-01-20 14:40 | disposition home or self-care (01) ==
PROVIDERS: PCP Nurse Practitioner Family; Visit Provider Nurse Practitioner
DX: Z87.81 Personal history of (healed) traumatic fracture (principal); Z96.89 Presence of other specified functional implants; M85.80 Other specified disorders of bone density and structure, unspecified site; M79.89 Other specified soft tissue disorders
CPT/HCPCS: 73590

== ENCOUNTER → 2025-09-22 14:28 | Outpatient (BNVA) | payer MEDICARE, OTHER, SELFPAY | PROVIDERS: PCP Nurse Practitioner Family; Visit Provider Podiatrist Foot & Ankle Surgery | DX: I73.9 Peripheral vascular disease, unspecified (principal); L60.3 Nail dystrophy | CPT/HCPCS: 11721; 99203 ==